=== PATIENT | female | born 1960 | race Caucasian/White ===

== ENCOUNTER 2020-06-16 10:45 | Emergency (ER) | payer OTHER, SELFPAY ==
[2020-06-16 10:57] VITALS: BP 133/73; PULSE 78; RESP 16; TEMP 36.2; O2SAT 97; BMI 22.3
--- NOTE | 2020-06-16 11:20 | XR_ITS ---
EXAMINATION: XR SHOULDER, LEFT CLINICAL INFORMATION: Atraumatic left shoulder pain. COMPARISON: None TECHNIQUE: AP external rotation, Grashey, scapular Y, and axillary views of the left shoulder. FINDINGS: The bones and soft tissues are normal. No fracture. Glenohumeral and acromioclavicular alignment is anatomic with normal joint space. No abnormal soft tissue calcifications. IMPRESSION: Unremarkable left shoulder exam.
--- NOTE | 2020-06-16 12:05 | ED_ITS ---
HPI - Extremity Problem General Chief complaint: Back Pain/Injury Stated complaint: PAIN - SHOULDER,BACK Time Seen by Provider: 06/16/20 11:10 Source: patient Mode of arrival: ambulatory Limitations: no limitations History of Present Illness HPI Narrative: 59-year-old female with a past medical history of rotator cuff injury to the right side, fibromyalgia, carpal tunnel syndrome and arthritis presenting to the ED with complaints of atraumatic left shoulder / scapula pain for the past few days worse today. Reports the pain is worse with raising of the arm or dropping of the arm. Denies any recent trauma or any other symptoms complaints or concerns at this time. Patient reports she is taking [id number] Tylenol and no symptomatic relief. Related Data Allergies Allergy/AdvReac Type Severity Reaction Status Date / Time aspirin [ASPIRIN] Allergy Unknown STOMACH Unverified 05/13/20 16:09 UPSET, irritation baclofen Allergy Unknown mouth ulcer Verified 04/09/19 00:00 naproxen Allergy Unknown mouth sores Verified 02/24/20 00:00 tramadol [TRAMADOL] Allergy Unknown DIZZY, Unverified 05/13/20 16:09 N&V, dizziness Review of Systems Review of Systems: Constitutional : No Fever Cardiovascular : No Chest Pain, No SOB, No Dyspnea on Exertion, No Orthopnea, No Edema, No Palpitations Respiratory : No Cough, No Sputum, No Wheezing, No Smoke Exposure, No Dyspnea Gastrointestinal : No Nausea, No Vomiting Musculoskeletal : No joint pain, No Myalgias, No Joint Swelling Skin : No Skin Lesions, No rash Neuro : No Weakness, No Numbness, No Paresthesias, No Dizziness, No Headache Heme/Lymph: No Lymphadenopathy Yes all other systems are reviewed and are negative [facility] Past Medical History Attestation statement: The following information was validated with the patient. Medical History Arthritis Carpal tunnel syndrome Fibromyalgia Rotator cuff injury Social History Social History Alcohol intake: never Smoking Status: Never smoker Use of substances other than those prescribed or required for medical reasons: No Advance Directives: Yes Advance Directives Information Provided: Yes Advance Directives on File: No Physical Exam Vital Signs: Vital Signs: Vital Signs Temp Pulse Resp BP Pulse Ox 10/21/20 10:57 97.1 F 78 16 133/73 97 Body Mass Index 22.3 vital signs have been reviewed as normal and appeared to be correct. Blood pressure normal. Heart rate normal. Respiration rate normal. Temperature normal. Oxygen saturation normal. Appearance: Alert. Oriented X3. No acute distress. Head: Normal external exam. Normocephalic. Atraumatic. No Carvalho signs noted. No raccoon eyes noted Eyes: PERRLA. EOMI. Conjunctiva and sclera normal. Eyelids normal. ENT: EAC normal. TM's Normal. Pharynx normal. Uvula midline. Moist mucous membranes. No trismus noted. No drooling noted. No muffled voice noted. Neck: Normal inspection. Neck supple. FROM. No adenopathy. Thyroid Normal. No meningeal signs. No neck mass noted. CVS: Normal heart rate and rhythm. Heart sound normal. No murmurs noted. Pulses normal throughout. Respiratory: No respiratory distress. Painless inspiration. Breath sounds normal. No wheezes/rales/rhonchi noted. Chest nontender. No accessory muscle usage noted or decreased air movement noted. Abdomen: Soft and nontender. Bowel sounds normal in all 4 quadrants. No distention noted. No organomegaly noted. No visible injury noted. Back: No CVA tenderness. Full range of motion noted. Skin: Skin warm and dry. Normal skin color. Normal skin turgor. No rashes/lesions/lacerations noted. Extremities: Patient tender to palpation of left AC joint and scapula. No obvious deformities. No rashes/lesion / induration/ fluctuance or signs of infection noted. Patient has a full range of motion. No lower extremity edema. All other Extremities exhibit normal range of motion and nontender. Neuro: Oriented X 3. No motor deficit. No sensory deficit. Reflexes normal. Course Course Course Narrative: 11:20AM 59-year-old female with a past medical history of rotator cuff injury to the right side, fibromyalgia, carpal tunnel syndrome and arthritis presenting to the ED with complaints of atraumatic left shoulder / scapula pain for the past few days worse today. Reports the pain is worse with raising of the arm or dropping of the arm. Denies any recent trauma or any other symptoms complaints or concerns at this time. - Plan: Xray Reevaluation(s) Reevaluation #1: X-ray within normal limits no acute processes noted. Will DC home with symptomatic treatment along with instructions to follow-up with primary care provider /big data engineer and to return if any new or worsening symptoms. Patient understands agrees with this plan. MDM - Extremity (Nontraumatic) Imaging Data left shoulder xray: Attestation: I personally reviewed and interpreted this imaging study as follows: Radiologist's impression: FINDINGS: The bones and soft tissues are normal. No fracture. Glenohumeral and acromioclavicular alignment is anatomic with normal joint space. No abnormal soft tissue calcifications. IMPRESSION: Unremarkable left shoulder exam.
== END 2020-06-16 12:25 | disposition home or self-care (01) ==
PROVIDERS: Emergency Provider Emergency Medicine; PCP Internal Medicine
DX: S46.912A Strain of unspecified muscle, fascia and tendon at shoulder and upper arm level, left arm, initial encounter (principal); X58.XXXA Exposure to other specified factors, initial encounter; M89.49 Other hypertrophic osteoarthropathy, multiple sites; Y93.9 Activity, unspecified; Y92.9 Unspecified place or not applicable; Y99.9 Unspecified external cause status
CPT/HCPCS: 73030; 99283

== ENCOUNTER → 2020-06-22 12:19 | Outpatient (BNVA) | payer OTHER, SELFPAY | PROVIDERS: PCP Internal Medicine; Visit Provider Student in an Organized Health Care Education/Training Program | DX: M67.912 Unspecified disorder of synovium and tendon, left shoulder (principal) | CPT/HCPCS: 20610; 99213 ==

== ENCOUNTER → 2020-08-24 14:25 | Outpatient (BNVA) | payer OTHER, SELFPAY | PROVIDERS: PCP Internal Medicine; Referring Provider Internal Medicine; Visit Provider Student in an Organized Health Care Education/Training Program | DX: Z13.89 Encounter for screening for other disorder (principal) | CPT/HCPCS: Q3014 ==

== ENCOUNTER 2020-10-27 09:16 | Outpatient (REF) | payer OTHER, SELFPAY ==
[2020-10-27 09:45] LABS: MANUAL DIFF FLAG NO
[2020-10-27 09:47] LABS: Basophils Percent Auto 0.6 % (0-2); Eosinophils Absolute Auto 0.2 X10*3/uL (0.0-0.4); Eosinophils Percent Auto 2.9 % (0-4); Hemoglobin 13.2 g/dl (12.0-16.0); Imm Gran Abs Auto 0.01 X10*3/uL (0.00-0.03); Imm Gran Pct Auto 0.1 % (0.0-0.4); Lymphocytes Absolute Auto 3.2 X10*3/uL (1.2-4.9); Lymphocytes Percent Auto 44.5 % (20-40); Mean Corpuscular HGB Conc 33.8 g/dl (31.0-35.0); Mean Corpuscular Volume 91.5 fL (80-98); Mean Platelet Volume 10.6 fL (9.4-12.3); Monocytes Absolute Auto 0.6 X10*3/uL (0.1-1.2); Monocytes Percent Auto 7.9 % (2-11); Neutrophils Absolute Auto 3.2 X10*3/uL (2.0-8.3); Platelet Count 294 X10*3/uL (160-400); Red Blood Count 4.26 X10*6/uL (4.20-5.50); Red Cell Distribution Width 12.5 % (11.0-16.0); White Blood Count 7.2 X10*3/uL (4.8-10.8)
[2020-10-27 10:55] LABS: Anion Gap 10 (12-20); Blood Urea Nitrogen 18 mg/dL (9-16); Calcium 9.5 mg/dL (8.4-10.2); Carbon Dioxide 28 mmol/L (22-29); Chloride 105 mmol/L (96-108); Cholesterol 212 mg/dL; Estimated Glomerular Filt Rate > 60; Glucose Fasting 96 mg/dL (60-99); HDL Cholesterol 59 mg/dL; LDL Cholesterol Calculated 125 mg/dl; Potassium 4.3 mmol/L (3.3-5.1); Sodium 139 mmol/L (135-145); Triglycerides 144 mg/dL
== END 2020-10-27 09:17 | disposition home or self-care (01) ==
LOC: HO.LAB 09:16
PROVIDERS: Absent Provider Internal Medicine; PCP Internal Medicine; Visit Provider Nurse Practitioner Family
DX: M25.50 Pain in unspecified joint (principal)
CPT/HCPCS: 36415; 80048; 80061; 85025

== ENCOUNTER 2021-01-13 10:17 | Outpatient (REF) | payer OTHER, SELFPAY ==
--- NOTE | 2021-01-13 10:19 | EMG_ITS ---
Bilateral median and ulnar motor and sensory studies were performed. Bilateral radial sensory studies were performed and paraspinal muscles were tested with a needle. IMPRESSION: 1. Lnlm-jy-pbhrnzsf right median neuropathy across carpal tunnel, the left one was within normal range. 2. Mild left ulnar neuropathy across cubital tunnel, the right one was within normal range. MD SERA Ochoa/BRANDYN / [phone]
== END 2021-01-13 10:18 | disposition home or self-care (01) ==
LOC: HO.NEURO 10:17
PROVIDERS: PCP Internal Medicine; Visit Provider Internal Medicine
DX: G56.03 Carpal tunnel syndrome, bilateral upper limbs (principal)
CPT/HCPCS: 95886; 95911

== ENCOUNTER 2021-03-18 13:59 | Outpatient (REF) | payer OTHER, SELFPAY ==
--- NOTE | ~2021-03-18 | MM_ITS ---
EXAMINATION: BONE DENSITOMETRY CLINICAL INDICATION: Other specified disorders of bone density and structure. COMPARISON: Previous BD dated 07/13/2017 and baseline BD dated 12/27/2009. TECHNIQUE: Using a Flexuspine DXA System (software version: 13.1) manufactured by [employer], dual-energy x-ray absorptiometry was performed of the lumbar spine and left hip. The images are of good technical quality. Summary results are attached. FINDINGS: AP SPINE L1-L4: Current: BMD 1.107 g/cm2, Z-score 0.7, T-score -0.6, normal, 4.1% decrease from previous, 9.4% decrease from baseline (<5% change is not significant). Prior: BMD 1.154 g/cm2. Baseline: BMD 1.222 g/cm2. LEFT FEMUR, NECK: Current: BMD 0.877 g/cm2, Z-score 0.2, T-score -1.2, osteopenia. Prior: BMD 0.873 g/cm2. Baseline: BMD 0.989 g/cm2. LEFT FEMUR, TOTAL: Current: BMD 0.955 g/cm2, Z-score 0.6, T-score -0.4, normal, 3.7% decrease from previous, 7.8% decrease from baseline (<5% change is not significant). Prior: BMD 0.992 g/cm2. Baseline: BMD 1.036 g/cm2. IDENTIFIED RISK FACTORS: Early menopause. Secondary osteoporosis. HISTORY OF FRACTURE: None listed. MEDICATIONS: Calcium. MM/XR DEXA axial skeleton IMPRESSION: 1. DIAGNOSIS: Osteopenia based on the lowest T-score value of -1.2 in the femoral neck applying World Health Organization criteria. 2. 10-YEAR FRACTURE RISK PREDICTION, FRAX: Major osteoporotic fracture (clinical spine, forearm, hip or shoulder) 3.8%. Hip fracture 0.2%. 3. Treatment Recommendations: NOF guidelines recommend consideration for treatment in postmenopausal women and men age 50 and older presenting with the following: -A hip or vertebral (clinical or morphometric) fracture. -T-score less than or equal to -2.5 at the femoral neck or spine after appropriate evaluation to exclude secondary causes. -Low bone mass at the hip or spine and a 10-year fracture probability by FRAX of greater than or equal to 3% for hip fracture or greater than or equal to 20% for major osteoporotic fracture based on the [place] adapted WHO algorithm. 4. Other Recommendations: All treatment decisions require clinical judgment and consideration of individual patient factors, including patient preferences, comorbidities, previous drug use, risk factors not captured in the FRAX model (e.g. frailty, falls, vitamin D deficiency, increased bone turnover, interval significant decline in bone density) and possible under or overestimation of fracture risk by FRAX. Additional medical evaluation for secondary cause of low bone mineral density may be appropriate. FUTURE SCAN RECOMMENDATION: People with diagnosed cases of osteoporosis or at high risk for fracture should have regular bone mineral density tests. For patients eligible for Medicare, routine testing is allowed once every 2 years. The testing frequency can be increased to one year for patients who have rapidly progressing disease, those who are receiving or discontinuing medical therapy to restore bone mass, or have additional risk factors.
--- NOTE | ~2021-03-18 | MM_ITS ---
EXAMINATION: MM SCREENING DIGITAL BREAST TOMOSYNTHESIS, BILATERAL CLINICAL INFORMATION: Screening. Asymptomatic. The lifetime risk of breast cancer based on the Tyrer-Cuzick Model is 6%. COMPARISON: Mammography: 07/16/2019, 04/24/2018, 01/19/2017 TECHNIQUE: Digital breast tomosynthesis is performed in both the craniocaudal and mediolateral oblique views along with computer-aided detection (CAD). Synthesized 2D images are generated from the tomosynthesis. FINDINGS: The breasts are heterogeneously dense, which may obscure small masses (ACR BI-RADS breast composition Category c). There are no significant masses, abnormal calcifications, or other abnormalities. Parenchymal pattern is similar to prior studies. No developing density there are dermal calcifications versus deodorant artifact overlying skin right axilla. MM/MM tomosynthesis screening BI IMPRESSION: No mammographic evidence of malignancy. ASSESSMENT: BI-RADS 2: Benign RECOMMENDATION: Routine annual mammography screening. This patient's information was entered into a reminder system with a target due date for their next mammogram.
== END 2021-03-18 14:00 | disposition home or self-care (01) ==
LOC: HO.MAMMO 13:59
PROVIDERS: PCP Internal Medicine; Visit Provider Internal Medicine
DX: Z12.31 Encounter for screening mammogram for malignant neoplasm of breast (principal); Z13.820 Encounter for screening for osteoporosis; M85.80 Other specified disorders of bone density and structure, unspecified site; R35.0 Frequency of micturition
CPT/HCPCS: 77063; 77067; 77080

== ENCOUNTER → 2021-08-16 13:23 | Outpatient (BNVA) | payer OTHER, SELFPAY | PROVIDERS: PCP Internal Medicine; Visit Provider Nurse Practitioner Family | DX: M25.50 Pain in unspecified joint (principal); G56.01 Carpal tunnel syndrome, right upper limb | CPT/HCPCS: 99212 ==

== ENCOUNTER 2021-11-28 09:35 | Outpatient (REF) | payer OTHER, SELFPAY ==
[2021-11-28 09:56] LABS: MANUAL DIFF FLAG NO
[2021-11-28 10:38] LABS: Basophils Percent Auto 0.6 % (0-2); Eosinophils Absolute Auto 0.2 X10*3/uL (0.0-0.4); Eosinophils Percent Auto 2.7 % (0-4); Hematocrit 39.5 % (37.0-47.0); Hemoglobin 13.3 g/dl (12.0-16.0); Imm Gran Abs Auto 0.01 X10*3/uL (0.00-0.03); Imm Gran Pct Auto 0.2 % (0.0-0.4); Lymphocytes Absolute Auto 2.8 X10*3/uL (1.2-4.9); Lymphocytes Percent Auto 42.9 % (20-40); Mean Corpuscular HGB Conc 33.7 g/dl (31.0-35.0); Mean Corpuscular Hemoglobin 30.9 pg (27.0-33.0); Mean Corpuscular Volume 91.6 fL (80.0-98.0); Monocytes Absolute Auto 0.5 X10*3/uL (0.1-1.2); Monocytes Percent Auto 7.5 % (2-11); Neutrophils Percent Auto 46.1 % (45-73); Platelet Count 293 X10*3/uL (160-400); Red Blood Count 4.31 X10*6/uL (4.20-5.50); Red Cell Distribution Width 12.5 % (11.0-16.0); White Blood Count 6.6 X10*3/uL (4.8-10.8)
[2021-11-28 10:49] LABS: Estimated Average Glucose 120 mg/dL; Hemoglobin A1c % 5.8 %
[2021-11-28 11:19] LABS: Alanine Aminotransferase 21 U/L (0-31); Albumin Level 4.2 g/dL (3.5-5.0); Alkaline Phosphatase 34 U/L (39-117); Anion Gap 11 (12-20); Aspartate Amino Transferase 24 U/L (5-31); Bilirubin Total 0.7 mg/dL (0.0-1.0); Blood Urea Nitrogen 16 mg/dL (9-16); Calcium 9.9 mg/dL (8.4-10.2); Carbon Dioxide 27 mmol/L (22-29); Chloride 106 mmol/L (96-108); Cholesterol 206 mg/dL; Estimated Glomerular Filt Rate > 60; Glucose Random 109 mg/dL (60-115); HDL Cholesterol 57 mg/dL; LDL Cholesterol Calculated 118 mg/dl; Potassium 4.4 mmol/L (3.3-5.1); Sodium 140 mmol/L (135-145); Total Protein 7.9 g/dL (6.5-8.0); Triglycerides 155 mg/dL
[2021-11-28 11:27] LABS: Thyroid Stimulating Hormone 2.34 uIU/mL (0.32-4.0); Vitamin D 25-OH Total 33.5 ng/mL (>30)
[2021-11-28 12:39] LABS: Folate > 20.0 ng/mL (> or = 4.0); Vitamin B12 635 pg/mL (200-900)
== END 2021-11-28 09:36 | disposition home or self-care (01) ==
LOC: HO.LAB 09:35
PROVIDERS: PCP Internal Medicine; Visit Provider Internal Medicine
DX: E78.00 Pure hypercholesterolemia, unspecified (principal); R73.02 Impaired glucose tolerance (oral)
CPT/HCPCS: 36415; 80053; 80061; 82306; 82607; 82746; 83036; 84439; 84443; 85025

== ENCOUNTER → 2022-03-23 14:13 | Outpatient (BNVA) | payer OTHER, SELFPAY | PROVIDERS: PCP Internal Medicine | DX: R35.0 Frequency of micturition (principal) | CPT/HCPCS: 51798; 99202 ==

== ENCOUNTER → 2022-08-03 10:49 | Outpatient (BNVA) | payer OTHER, SELFPAY | PROVIDERS: PCP Internal Medicine; Visit Provider Urology | DX: N32.81 Overactive bladder (principal) | CPT/HCPCS: Q3014 ==

== ENCOUNTER → 2022-09-27 14:09 | Outpatient (BNVA) | payer OTHER, SELFPAY | PROVIDERS: PCP Internal Medicine; Visit Provider Nurse Practitioner Family | DX: G56.01 Carpal tunnel syndrome, right upper limb (principal); M79.7 Fibromyalgia | CPT/HCPCS: 99212 ==

== ENCOUNTER 2022-10-03 13:38 | Outpatient (REF) | payer OTHER, SELFPAY ==
--- NOTE | ~2022-10-03 | XR_ITS ---
EXAMINATION: XR SHOULDER, RIGHT CLINICAL INFORMATION: Right shoulder pain COMPARISON: MRI 08/01/2016 TECHNIQUE: AP external rotation, Grashey, scapular Y, and axillary views of the right shoulder. FINDINGS: Small degenerative cysts of the superolateral humeral head. No joint space narrowing. No fracture or malalignment. XR/XR shoulder RT min 2V IMPRESSION: Mild glenohumeral osteoarthritis. No acute osseous abnormality.
[2022-10-03 15:31] LABS: Anion Gap 16 (12-20); Bilirubin Total 0.8 mg/dL (0.0-1.0); Blood Urea Nitrogen 18 mg/dL (9-16); Calcium 9.9 mg/dL (8.4-10.2); Carbon Dioxide 26 mmol/L (22-29); Chloride 104 mmol/L (96-108); Estimated Glomerular Filt Rate > 60; Glucose Random 116 mg/dL (60-115); Potassium 4.5 mmol/L (3.3-5.1); Sodium 141 mmol/L (135-145)
[2022-10-03 15:32] LABS: Alanine Aminotransferase 14 U/L (0-31); Albumin Level 4.2 g/dL (3.5-5.0); Alkaline Phosphatase 36 U/L (39-117); Aspartate Amino Transferase 21 U/L (5-31); Total Protein 7.4 g/dL (6.5-8.0)
== END 2022-10-03 13:39 | disposition home or self-care (01) ==
LOC: HO.XRAY 13:38
PROVIDERS: PCP Internal Medicine; Visit Provider Nurse Practitioner Family
DX: M25.511 Pain in right shoulder (principal); M79.7 Fibromyalgia
CPT/HCPCS: 36415; 73030; 80053

== ENCOUNTER → 2022-10-04 11:09 | Outpatient (BNVA) | payer OTHER, SELFPAY | PROVIDERS: PCP Internal Medicine; Visit Provider Nurse Practitioner Family | DX: R39.15 Urgency of urination (principal); R35.0 Frequency of micturition; N32.81 Overactive bladder | CPT/HCPCS: Q3014 ==

== ENCOUNTER → 2022-10-26 11:21 | Outpatient (BNVA) | payer OTHER, SELFPAY | PROVIDERS: PCP Internal Medicine; Visit Provider Nurse Practitioner Family | DX: M19.011 Primary osteoarthritis, right shoulder (principal) | CPT/HCPCS: 20610 ==

== ENCOUNTER 2023-02-20 09:24 | Emergency (ER) | payer OTHER, SELFPAY ==
--- NOTE | ~2023-02-20 | XR_ITS ---
EXAMINATION: XR LUMBOSACRAL SPINE CLINICAL INFORMATION: Pain COMPARISON: None available. TECHNIQUE: Three views of the lumbosacral spine. FINDINGS: The normal lordosis is maintained. Mild scoliosis convex right apex at L4. The SI joints are grossly patent. There is no listhesis or compression injury. The vertebral body heights and disc heights are fairly well-preserved here. Cannot rule out some early degeneration in the inferior L5-S1 posterior elements. XR/XR lumbar spine 2-3V IMPRESSION: No acute finding. Scoliosis and some possible mild early degenerative changes in the posterior elements lower lumbar region
[2023-02-20 09:33] VITALS: BP 105/76; PULSE 77; RESP 17; TEMP 36.1; O2SAT 99; BMI 19.5
--- NOTE | 2023-02-20 10:21 | ED_ITS ---
HPI - General Adult General Chief complaint: General Medical Stated complaint: R Side and Back Pain No Injury Time Seen by Provider: 02/20/23 09:46 Source: patient and RN notes reviewed Mode of arrival: ambulatory Limitations: no limitations History of Present Illness HPI narrative: This is a 62-year-old female, with a past medical history of fibromyalgia and carpal tunnel syndrome, presenting to the emergency department for evaluation of acute on chronic right shoulder pain and back pain. Patient reports that she developed left midback pain several weeks ago. She reports that about a week ago she developed worsening right shoulder pain. She denies any recent trauma, injury, or falls. She is not working right now but does a lot of housework every day. She denies remembering specific movement where she developed these symptoms. She has been taking Tylenol for her symptoms which has provided her without any relief. Denies any fevers, chills, chest pain, shortness of breath, palpitations, abdominal pain, nausea, vomiting, or diarrhea. Denies any urinary symptoms. No other complaints or concerns at this time. MD complaint: Right shoulder pain, back pain Onset (ago): week(s) Location: upper extremity Radiation: non-radiation Severity: moderate Quality: aching Pain Consistency: constant Relieving factors: immobilization Exacerbating factors: movement Associated symptoms: denies other symptoms Treatments prior to arrival: none Related Data Home Medications Medication Instructions Recorded Confirmed multivitamin 1 tab PO DAILY 06/21/20 10/23/22 Previous Rx's Medication Instructions Recorded fluticasone propionate 50 1 spray intranasal DAILY #48 mL 11/16/21 mcg/actuation nasal spray,suspension propranolol 10 mg tablet 10 mg PO BID #180 tabs 09/06/22 cyclobenzaprine 10 mg tablet 10 mg PO TID PRN muscle spasm #20 09/22/22 tabs amitriptyline 10 mg tablet 10 mg PO BEDTIME #90 tabs 09/27/22 gabapentin 400 mg capsule 400 mg PO BID #180 caps 09/27/22 tolterodine 4 mg capsule,extended 4 mg PO DAILY 90 days #90 caps 10/04/22 release 24 hr mometasone 0.1 % topical cream 1 appl topical DAILY 2 weeks #45 10/23/22 grams lqvrovbc-vcekukhnn-wdjalojcz 3.5 4 drp otic (ear) right TID 5 days 10/23/22 mg/mL-10,000 unit/mL-1 % ear #10 mL solution psyllium husk 0.4 gram capsule 0.4 g PO DAILY PRN constipation 10/23/22 (Metamucil) #30 caps sennosides 8.6 mg-docusate sodium 2 tab-cap PO BEDTIME #60 caps 10/23/22 50 mg capsule (Senna Plus) calcium carbonate 600 mg-vitamin 1 tab PO DAILY #90 tabs 10/27/22 D3 5 mcg (200 unit) tablet (Calcium 600 + D(3)) acetaminophen 325 mg capsule 650 mg PO Q6H PRN pain #30 caps 02/20/23 (Tylenol) ibuprofen 600 mg tablet 600 mg PO Q6H PRN pain #30 tabs 02/20/23 Allergies Allergy/AdvReac Type Severity Reaction Status Date / Time aspirin [ASPIRIN] Allergy Unknown STOMACH Verified 02/20/23 09:32 UPSET, irritation baclofen Allergy Unknown mouth ulcer Verified 02/20/23 09:32 naproxen Allergy Unknown mouth sores Verified 02/20/23 09:32 tramadol [TRAMADOL] Allergy Unknown DIZZY, Verified 02/20/23 09:32 N&V, dizziness sumatriptan [From Imitrex] AdvReac Intermediate Chest Pain Verified 02/20/23 09:32 Review of Systems Review of Systems: Constitutional: No Weight loss, No Fever, No Chills ENT/Mouth: No Ear Pain, No Nasal Congestion, No Sinus Pain, No Hoarseness, No sore throat, No Rhinorrhea, No Swallowing Difficulty Cardiovascular: No Chest Pain, No SOB Respiratory: No Cough, No Sputum, No Wheezing Gastrointestinal: No Nausea, No Vomiting, No Diarrhea, No Constipation, No Abdominal pain Genitourinary: No Dysuria, + Urinary Frequency, No Hematuria, No Urinary Incontinence/retention, No Urgency, No Flank Pain Musculoskeletal:+ joint pain, No Myalgias, No Joint Swelling Skin: No Skin Lesions, No rash Neuro: No Weakness, No Numbness, No Paresthesias Yes all other systems are reviewed and are negative Constitutional: Constitutional: Reports as per [facility] Past Medical History Attestation statement: The following information was validated with the patient. Medical History Carpal tunnel syndrome FARHAD II (cervical intraepithelial neoplasia II) Fibromyalgia HPV test positive Hypercholesterolemia Impaired glucose tolerance Left shoulder pain Migraine Osteopenia Rotator cuff injury Thyroid nodule Urinary frequency Urinary urgency Vitamin D deficiency Surgical History H/O LEEP Family History Family History Father CVD (cardiovascular disease) Mother Diabetes Hypertension Social History Social History Housing: House Alcohol intake: never Patient Tobacco Use Status: Never used Tobacco e-Cigarette/Vaping Use: Never Used Second Hand Smoke Exposure: No Advance Directives: No service: No Current occupational status: unemployed Cognitive needs: No Hearing needs: No Vision needs: Yes Physical Exam ED Vital Signs: Vital Signs - 24 hr 02/20/23 09:33 Temperature 97 F Pulse Rate 77 Respiratory Rate 17 Blood Pressure 105/76 Pulse Oximetry 99 Oxygen Delivery Method Room Air BMI result Body Mass Index 19.5 Const General: cooperative, comfortable and no acute distress Orientation/consciousness: patient oriented x3 Limitations: no limitations HENMT Head: Yes normal to inspection, Yes normocephalic and Yes atraumatic Ears: hearing grossly normal bilaterally General nose exam: Normal external nose present Face and sinus: Yes normal facial exam Mouth: Normal oral and palatal mucosa present, oropharynx normal and moist mucous membranes Throat: Yes posterior oropharynx normal Eyes General: appearance normal, both eyes and all related structures Eyelids: Yes eyelids normal Conjunctivae: conjunctivae normal Sclerae: sclerae normal Pupils: Equal, round and reactive pupils present EOM: EOMs intact bilaterally Neck Neck: Yes normal visual inspection, Yes full ROM and Yes no lymphadenopathy Lymphatic: no lymphadenopathy noted Chest Chest palpation & inspection: normal inspection of the chest Resp Effort & Inspection: normal respiratory effort and able to speak in complete sentences Auscultation: clear to auscultation bilaterally, no crackles, no rales, no rhonchi and no wheezes Cardio Rate: regular rate Rhythm: regular rhythm Heart sounds: S1 normal heart sound present and S2 normal heart sound present GI Inspection: Yes normal to inspection Palpation (GI): Soft to palpation, nontender and no guarding General: Yes no CVA tenderness Back/Spine/Pelvis Other: Tenderness to palpation along the left paraspinous muscles, no midline spine tenderness. Back: no CVA tenderness Thoracic/Lumbar Spine: thoracic and lumbar spine normal to inspection Skin General skin exam: no rashes or lesions noted Trauma: no lacerations or abrasions Wounds: no wounds Neuro General: patient oriented x3 and moves all extremities Cranial nerves: Yes Equal, round and reactive pupils present Extrem Other: Right shoulder with out any bony abnormalities, step-off or deformities. Right shoulder is tender diffusely throughout the entire joint without any specific point tenderness. Tenderness to palpation along the right trapezius. Forward flexion to about 70?, abduction to about 60?, unable to perform lift-off test secondary to pain, positive empty can test. General: Yes normal to inspection Right upper extremity: normal to inspection Left upper extremity: normal to inspection Right lower extremity: normal to inspection Left lower extremity: normal to inspection Course Reevaluation(s) Reevaluation #1: X-rays return showing scoliosis and mild degenerative changes lumbar spine. Will discharge patient on ibuprofen Tylenol. States some relief after receiving Toradol injection. Educated patient on return precautions, patient understands agrees with plan. Patient eager for discharge. Time: 13:03 Medications Administered Discontinued Medications Generic Name Dose Route Start Last Admin Trade Name Freq PRN Reason Stop Dose Admin Ketorolac Tromethamine 30 mg 02/20/23 10:19 02/20/23 11:13 Ketorolac Tromethamine 30 Mg/Ml Vial IM 02/20/23 10:20 30 mg ONCE ONE Administration Medical Decision Making Medical Decision Making [facility] Narrative: 62-year-old female presenting to the emergency department for evaluation of right shoulder pain and back pain. Patient was seen in September where she obtained a right shoulder x-ray which showed osteoarthritis. She has also been seen by Rheumatology where she had a cortisone injection, patient has no new trauma or injury to her right shoulder given the circumstances I do not think it is necessary to re-x-ray the right shoulder. Patient has no midline spine tenderness, has left paraspinous muscle tenderness, will obtain x-rays per patient's request although explained to her that this is all musculoskeletal. Patient has no red flag back symptoms. No urinary symptoms. No weakness, numbness, tingling. No urinary or bowel incontinence. No fevers or chills. Vital signs within normal limits. Differential Diagnosis Differential Diagnoses: The differential diagnosis associated with the presentation includes Right shoulder osteoarthritis, dislocation-less likely, septic joint-less likely, fracture, sciatica, lumbar strain, lumbar spasm, disc herniation, cauda equina syndrome-unlikely Radiology Impression Discussion of test interpretation with radiology: I have reviewed the radiologist's reading. Radiologist Impression: EXAMINATION: XR LUMBOSACRAL SPINE CLINICAL INFORMATION: Pain COMPARISON: None available. TECHNIQUE: Three views of the lumbosacral spine. FINDINGS: The normal lordosis is maintained. Mild scoliosis convex right apex at L4. The SI joints are grossly patent. There is no listhesis or compression injury. The vertebral body heights and disc heights are fairly well-preserved here. Cannot rule out some early degeneration in the inferior L5-S1 posterior elements. XR/XR lumbar spine 2-3V IMPRESSION: No acute finding. Scoliosis and some possible mild early degenerative changes in the posterior elements lower lumbar region Dictated By: Cj Nuno MD External Record Review External record reviewed: Inpatient record, Office record, Outpatient record, Prior outpatient labs, Prior outpatient radiology, Primary care record and Outside ED record Review of previous ER visits and rheumatology visits Discharge Plan Discharge Clinical Impression: Chronic shoulder pain, Back pain Patient Disposition: Home, Self-Care Instructions: Back Pain (ED), Shoulder Pain (ED) Additional Instructions: Your x-ray of your back reveals scoliosis, and mild early degenerative changes. You received Toradol injection for pain, which is similar to ibuprofen. Do not take ibuprofen today, but you may take Tylenol as needed for pain. Take medications as prescribed. Follow-up with your primary care physician regarding this visit, as they may want to refer you to physical therapy. I am also referring you to orthopedics for your shoulder pain, call today to make an appointment. If any new or worsening symptoms occur please return for re-evaluation. Prescriptions: New ibuprofen 600 mg tablet 600 mg PO Q6H PRN (Reason: pain) Qty: 30 0RF acetaminophen [Tylenol] 325 mg capsule 650 mg PO Q6H PRN (Reason: pain) Qty: 30 0RF No Action fluticasone propionate 50 mcg/actuation spray,suspension 1 spray intranasal DAILY Qty: 48 5RF propranolol 10 mg tablet 10 mg PO BID Qty: 180 2RF cyclobenzaprine 10 mg tablet 10 mg PO TID PRN (Reason: muscle spasm) Qty: 20 5RF calcium carbonate-vitamin D3 [Calcium 600 + D(3)] 600 mg-5 mcg (200 unit) tablet 1 tab PO DAILY Qty: 90 3RF multivitamin Tablet 1 tab PO DAILY Senna Plus 8.6-50 mg capsule 2 tab-cap PO BEDTIME Qty: 60 4RF psyllium husk [Metamucil] 0.4 gram capsule 0.4 g PO DAILY PRN (Reason: constipation) Qty: 30 2RF cnukjknt-lictzxojg-IF 3.5-10,000-1 mg/mL-unit/mL-% solution 4 drp otic (ear) right TID 5 Days Qty: 10 0RF mometasone 0.1 % cream 1 appl topical DAILY 14 Days Qty: 45 0RF amitriptyline 10 mg tablet 10 mg PO BEDTIME Qty: 90 1RF gabapentin 400 mg capsule 400 mg PO BID Qty: 180 0RF tolterodine 4 mg capsule,extended release 24hr 4 mg PO DAILY 90 Days Qty: 90 1RF Referrals: [facility] Orth[facility] Surgeons [Provider Group] Interventions: ED Discharge Assessment Last Done: 02/20/23 13:01 Discharge Date/Time: 02/20/23 13:02
[2023-02-20] MEDS: Ketorolac Tromethamine 30 MG/ML VIAL IM (11:13)
== END 2023-02-20 13:02 | disposition home or self-care (01) ==
PROVIDERS: Emergency Provider Emergency Medicine; PCP Internal Medicine
DX: M25.511 Pain in right shoulder (principal); M54.50 Low back pain, unspecified; Z79.899 Other long term (current) drug therapy
CPT/HCPCS: 72100; 96372; 99283; 99284; J1885

== ENCOUNTER 2023-03-05 10:05 | Outpatient (REF) | payer OTHER, SELFPAY ==
[2023-03-05 12:13] LABS: Alanine Aminotransferase 14 U/L (0-31); Albumin Level 4.1 g/dL (3.5-5.0); Alkaline Phosphatase 31 U/L (39-117); Anion Gap 14 (12-20); Aspartate Amino Transferase 21 U/L (5-31); Bilirubin Total 0.9 mg/dL (0.0-1.0); Blood Urea Nitrogen 21 mg/dL (9-16); Carbon Dioxide 25 mmol/L (22-29); Chloride 107 mmol/L (96-108); Cholesterol 217 mg/dL; Estimated Glomerular Filt Rate > 60; Free T4 (Free Thyroxine) 1.05 ng/dL (0.71-1.85); Glucose Random 86 mg/dL (60-115); HDL Cholesterol 61 mg/dL; LDL Cholesterol Calculated 137 mg/dl; Potassium 4.3 mmol/L (3.3-5.1); Sodium 142 mmol/L (135-145); Thyroid Stimulating Hormone 1.81 uIU/mL (0.32-4.0); Total Protein 7.8 g/dL (6.5-8.0); Triglycerides 96 mg/dL; Vitamin D 25-OH Total 40.6 ng/mL (>30)
== END 2023-03-05 10:06 | disposition home or self-care (01) ==
LOC: HO.LAB 10:05
PROVIDERS: PCP Internal Medicine; Visit Provider Internal Medicine
DX: E78.00 Pure hypercholesterolemia, unspecified (principal); R73.02 Impaired glucose tolerance (oral); M85.80 Other specified disorders of bone density and structure, unspecified site; E55.9 Vitamin D deficiency, unspecified
CPT/HCPCS: 36415; 80053; 80061; 82306; 82607; 82746; 83036; 84439; 84443; 85025

== ENCOUNTER 2023-03-09 13:56 | Outpatient (AMB) | payer OTHER, SELFPAY ==
[2023-03-09 13:58] VITALS: BP 112/72; PULSE 57; O2SAT 98; BMI 19.3
--- NOTE | 2023-03-09 13:58 | MHC.PC.OV ---
Vital Signs 03/09/23 13:58 Height 5 ft 5 in Weight 116 lb BMI 19.3 BP 112/72 Blood Pressure Location Lt brachial Position Sitting Pulse 57 Pulse Source Pulse Oximeter Pulse Oximetry (%) 98 Oxygen Delivery Method Room Air Intake Visit Reasons: [facility] [place] 02/20/23 Right Arm Pain Allergies aspirin [ASPIRIN] Allergy (Unknown, Verified 03/09/23 13:58) STOMACH UPSET, irritation baclofen Allergy (Unknown, Verified 03/09/23 13:58) mouth ulcer naproxen Allergy (Unknown, Verified 03/09/23 13:58) mouth sores tramadol [TRAMADOL] Allergy (Unknown, Verified 03/09/23 13:58) DIZZY, N&V, dizziness sumatriptan [From Imitrex] Adverse Reaction (Intermediate, Verified 03/09/23 13:58) Chest Pain Tobacco use date assessed: 10/23/22 Dental Screening Dental Screen Date: 03/09/23 Did you have a dental visit in the last 12 months?: Yes Did you have a dental problem in the last 6 months where you did not have access to dental care?: No Was dental information given to patient?: Patient has dentist HPI [facility] [place] 02/20/23 Right Arm Pain HPI Details 62-year-old female with impaired glucose tolerance, hypercholesterolemia overactive bladder constipation fibromyalgia last seen in September 2022. GI series requested blood work requested and with hoarseness of voice referred to Ear Nose and Throat. Patient comes in for follow-up. Colonoscopy still up-to-date due for mammogram. Review of the notes ER visit in February 20 for back pain and workup was negative patient has also seen the Rheumatology for the right shoulder and injection was done October 2022. With the hoarseness - refered to ENT but she cancelled this but wants it to be reinstated. does not eat vegetables patient is complaining of the shoulder pain on the right now has some pain on the left so also and had some numbness in the fingers patient does have a history of carpal tunnel tested in 2019 but that was early and ask if would want to do a test this time patient declined. [facility] Medical History (Updated 03/09/23 @ 14:20 by Asiya Wyman MD) Carpal tunnel syndrome FARHAD II (cervical intraepithelial neoplasia II) Fibromyalgia HPV test positive Hypercholesterolemia Impaired glucose tolerance Left shoulder pain Migraine Osteopenia Rotator cuff injury Thyroid nodule Urinary frequency Urinary urgency Vitamin D deficiency Surgical History H/O LEEP Family History (Updated 03/09/23 @ 13:59 by Rosa Klein WHEAT BUYER) Father CVD (cardiovascular disease) Mother Diabetes Hypertension Social History Housing: House Alcohol intake: never Patient Tobacco Use Status: Never used Tobacco e-Cigarette/Vaping Use: Never Used Second Hand Smoke Exposure: No service: No Current occupational status: unemployed Cognitive needs: No Hearing needs: No Vision needs: Yes Questionnaire PHQ-9 Over the last 2 weeks, how often have you been bothered by any of the following problems? 1. Little interest or pleasure in doing things: not at all 2. Feeling down, depressed, or hopeless: not at all 3. Trouble falling or staying asleep, or sleeping too much: not at all 4. Feeling tired or having little energy: not at all 5. Poor appetite or overeating: not at all 6. Feeling bad about yourself - or that you are a failure or have let yourself or your family down: not at all 7. Trouble concentrating on things, such as reading the newspaper or watching television: not at all 8. Moving or speaking so slowly that other people could have noticed. Or the opposite - being so fidgety or restless that you have been moving around a lot more than usual: not at all 9. Thoughts that you would be better off or of hurting yourself in some way: not at all Total score: 0 Depression Screening Interpretation: Negative Source: Developed by Drs. Gallito Day, Raquel Pang, José Miguel Schmid and colleagues, with an educational fallon from [employer]. Thrive Questionnaire Date Thrive assessed: 10/23/22 AUDIT C Alcohol Use Questionnaire (AUDIT-C) 1. How often do you have a drink containing alcohol?: Never 2. How many drinks containing alcohol do you have on a typical day when you are drinking?: 1 or 2 (0) 3. How often do you have six or more drinks on one occasion?: Never Total Score: 0 JONY-7 AMB Questionnaire JONY-7 Date JONY - 7 assessed: 10/23/22 Source: Developed by Drs. Gallito Day, Raquel Pang, José Miguel Schmid and colleagues, with an educational fallon from [employer]. Physical exam (Primary Care) Vital Signs: Last Vital Signs Pulse 57 03/09/23 13:58 BP 112/72 03/09/23 13:58 Pulse Ox 98 03/09/23 13:58 Oxygen Delivery Method Room Air 03/09/23 13:58 BMI result Body Mass Index 19.3 Tobacco/Smoking Status: Tobacco use Status Tobacco use date assessed 10/23/22 03/09/23 14:02 Patient Tobacco Use Status Never used Tobacco 03/09/23 14:02 e-Cigarette/Vaping Use Never Used 03/09/23 14:02 PHQ-9: PHQ-9 Score PHQ-9: Total score 0 03/09/23 14:02 Depression Screening Interpretation: Negative Thrive Assessment: Date of Thrive Assessment Date Thrive assessed 10/23/22 03/09/23 14:02 Const General: alert; No acute distress Eyes Conjunctivae: conjunctivae normal Resp Auscultation: clear to auscultation bilaterally Cardio Rate: regular rate Rhythm: regular rhythm GI Inspection: Yes normal to inspection Extrem General: Yes normal to inspection and No edema Assessment and Plan Assessment & Plan (1) Osteoarthritis of right shoulder: Code(s): M19.011 - Primary osteoarthritis, right shoulder Plan: Patient has seen rheumatology before and had injections in October 2022 (2) Osteopenia: Comment: June 20172017 Code(s): M85.80 - Other specified disorders of bone density and structure, unspecified site Plan: Bone density requested (3) Impaired glucose tolerance: Code(s): R73.02 - Impaired glucose tolerance (oral) Plan: Decrease the amount of carbohydrate intake, pasta, bread, rice and potatoes are all sugar and that is aside from all the sweet stuff, remember that fruits are good but they are Sweet also. (4) Hypercholesterolemia: Code(s): E78.00 - Pure hypercholesterolemia, unspecified Plan: Avoid fried foods, chicken skin, eggs, butter margarine, pastries and meat. Be it pork or beef they have a lot of cholesterol LDL goal of less than 130 and triglyceride of less than 150 (5) Fibromyalgia: Code(s): M79.7 - Fibromyalgia Plan: Keep active a row big exercises (6) Breast cancer screening by mammogram: Code(s): Z12.31 - Encounter for screening mammogram for malignant neoplasm of breast (7) Carpal tunnel syndrome: Comment: 2019 early Code(s): G56.00 - Carpal tunnel syndrome, unspecified upper limb Qualifiers: Laterality: right Qualified Code(s): G56.01 - Carpal tunnel syndrome, right upper limb (8) Hoarseness of voice: Code(s): R49.0 - Dysphonia Orders: Orders XR DEXA axial skeleton Today M81.0 - Age-related osteoporosis without current pathological fracture, M85.80 - Other specified disorders of bone density and structure, unspecified site Referrals Orthopedics Referral M19.011 - Primary osteoarthritis, right shoulder Ear/Nose/Throat Referral R49.0 - Dysphonia Dermatology Referral L65.9 - Nonscarring hair loss, unspecified Coding Level of Care Code Est Pt Level 4 (68358) Diagnoses Osteoarthritis of right shoulder M19.011 Osteopenia M85.80 Impaired glucose tolerance R73.02 Hypercholesterolemia E78.00 Fibromyalgia M79.7 Breast cancer screening by mammogram Z12.31 Carpal tunnel syndrome G56.01 Laterality: right Hoarseness of voice R49.0
== END 2023-03-09 14:23 | disposition home or self-care (01) ==
PROVIDERS: PCP Internal Medicine; Visit Provider Internal Medicine
DX: M19.011 Primary osteoarthritis, right shoulder (principal); M85.80 Other specified disorders of bone density and structure, unspecified site; R73.02 Impaired glucose tolerance (oral); E78.00 Pure hypercholesterolemia, unspecified; M79.7 Fibromyalgia; Z12.31 Encounter for screening mammogram for malignant neoplasm of breast; G56.01 Carpal tunnel syndrome, right upper limb; R49.0 Dysphonia
CPT/HCPCS: 99214

== ENCOUNTER 2023-04-12 12:29 | Outpatient (REF) | payer OTHER, SELFPAY ==
--- NOTE | ~2023-04-12 | MM_ITS ---
EXAMINATION: BONE DENSITOMETRY CLINICAL INDICATION: Age-related osteoporosis without current pathological fracture. COMPARISON: Previous BD dated 03/18/2021 and baseline BD dated 12/27/2009. TECHNIQUE: Using a [employer] DXA System (software version: 13.1) manufactured by [employer], dual-energy x-ray absorptiometry was performed of the lumbar spine and left hip. The images are of good technical quality. Summary results are attached. FINDINGS: AP SPINE L1-L4: Current: BMD 1.078 g/cm2, Z-score 0.9, T-score -0.9, normal, 2.6% decrease from previous, 11.8% decrease from baseline (<5% change is not significant). Prior: BMD 1.107 g/cm2. Baseline: BMD 1.222 g/cm2. LEFT FEMUR, NECK: Current: BMD 0.919 g/cm2, Z-score 0.7, T-score -0.9, normal. Prior: BMD 0.877 g/cm2. Baseline: BMD 0.989 g/cm2. LEFT FEMUR, TOTAL: Current: BMD 0.903 g/cm2, Z-score 0.5, T-score -0.8, normal, 5.4% decrease from previous, 12.8% decrease from baseline (<5% change is not significant). Prior: BMD 0.955 g/cm2. Baseline: BMD 1.036 g/cm2. IDENTIFIED RISK FACTORS: Rheumatoid arthritis. Low calcium intake. Secondary osteoporosis (early menopause). Anticonvulsants. HISTORY OF FRACTURE: None listed. MEDICATIONS: Calcium supplement and/or multivitamin. Vitamin D. MM/XR DEXA axial skeleton IMPRESSION: 1. DIAGNOSIS: Normal bone density based on the lowest T-score value of -0.9 in the lumbar spine and femoral neck applying World Health Organization criteria. 2. 10-YEAR FRACTURE RISK PREDICTION, FRAX: According to the guidelines, FRAX calculation should only be performed on patients in the osteopenia bone density category.?Therefore, FRAX was not performed on this patient.? 3. Treatment Recommendations: NOF guidelines recommend consideration for treatment in postmenopausal women and men age 50 and older presenting with the following: -A hip or vertebral (clinical or morphometric) fracture. -T-score less than or equal to -2.5 at the femoral neck or spine after appropriate evaluation to exclude secondary causes. -Low bone mass at the hip or spine and a 10-year fracture probability by FRAX of greater than or equal to 3% for hip fracture or greater than or equal to 20% for major osteoporotic fracture based on the [place] adapted WHO algorithm. 4. Other Recommendations: All treatment decisions require clinical judgment and consideration of individual patient factors, including patient preferences, comorbidities, previous drug use, risk factors not captured in the FRAX model (e.g. frailty, falls, vitamin D deficiency, increased bone turnover, interval significant decline in bone density) and possible under or overestimation of fracture risk by FRAX. FUTURE SCAN RECOMMENDATION: People with diagnosed cases of osteoporosis or at high risk for fracture should have regular bone mineral density tests. For patients eligible for Medicare, routine testing is allowed once every 2 years. The testing frequency can be increased to one year for patients who have rapidly progressing disease, those who are receiving or discontinuing medical therapy to restore bone mass, or have additional risk factors.
--- NOTE | ~2023-04-12 | MM_ITS ---
EXAMINATION: MM SCREENING DIGITAL BREAST TOMOSYNTHESIS, BILATERAL CLINICAL INFORMATION: Screening. Asymptomatic. COMPARISON: Mammography: 03/18/2021, 07/16/2019, 04/23/2018, 01/19/2017, and dating back to 2014. TECHNIQUE: Digital breast tomosynthesis is performed in both the craniocaudal and mediolateral oblique views along with computer-aided detection (CAD). Synthesized 2D images are generated from the tomosynthesis. FINDINGS: The breasts are heterogeneously dense, which may obscure small masses (ACR BI-RADS breast composition Category c). There are no suspicious masses, suspicious grouped calcifications, or areas of architectural distortion. The parenchymal pattern is stable from prior exams. MM/MM tomosynthesis screening BI IMPRESSION: No mammographic evidence of malignancy. ASSESSMENT: BI-RADS BI-RADS 1 - Negative RECOMMENDATION: Routine annual mammography screening. 1 year F/U This examination should not preclude the clinical evaluation of a suspicious palpable abnormality. This patient's information was entered into a reminder system with a target due date for their next mammogram.
== END 2023-04-12 12:30 | disposition home or self-care (01) ==
LOC: HO.MAMMO 12:29
PROVIDERS: PCP Internal Medicine; Visit Provider Internal Medicine
DX: Z12.31 Encounter for screening mammogram for malignant neoplasm of breast (principal); Z13.820 Encounter for screening for osteoporosis; Z78.0 Asymptomatic menopausal state; M81.0 Age-related osteoporosis without current pathological fracture
CPT/HCPCS: 77063; 77067; 77080

== ENCOUNTER → 2023-04-12 13:00 | Outpatient (BNV) | payer OTHER, SELFPAY | PROVIDERS: PCP Internal Medicine; Visit Provider Radiology Diagnostic Radiology | DX: Z12.31 Encounter for screening mammogram for malignant neoplasm of breast (principal) | CPT/HCPCS: 77063; 77067; 77080 ==

== ENCOUNTER 2023-04-19 10:50 | Outpatient (AMB) | payer OTHER, SELFPAY ==
[2023-04-19 10:51] VITALS: BMI 19.3
--- NOTE | 2023-04-19 10:51 | A.OFFVIS_ITS ---
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 Hx of fibromyalgia. She was referred by Rheumatology who provided an injection on 10/26/2022. This injection was only helpful for a few months. Patient reports that she has had pain in the right shoulder for years now. She has numbness and tingling in the right arm. She has increased pain with lifting, reaching and other above the head activities. She tylenol, cyclobenzaprine and gabapentin for her pain, she finds the muscle relaxer most helpful Allergies aspirin [ASPIRIN] Allergy (Unknown, Verified 03/09/23 13:58) STOMACH UPSET, irritation baclofen Allergy (Unknown, Verified 03/09/23 13:58) mouth ulcer naproxen Allergy (Unknown, Verified 03/09/23 13:58) mouth sores tramadol [TRAMADOL] Allergy (Unknown, Verified 03/09/23 13:58) DIZZY, N&V, dizziness sumatriptan [From Imitrex] Adverse Reaction (Intermediate, Verified 03/09/23 13:58) Chest Pain HPI [employer] IN[employer]ER- Rt shoulder OA HPI Details Juju is a 62 year old woman who presents with complaints of chronic right shoulder OA pain. She has a hx of Fibromyalgia and received an injection from Rheumatology on 10/26/22, with relief. [place] patient She complains of pain with daily activity, worse with lifting, reaching, and overhead activities. She also complains of numbness in her right arm She has tried NSAIDs, Gabapentin, and muscle relaxers. She found Cyclobenzaprine to help her the most with pain. PFSH Medical History Carpal tunnel syndrome FARHAD II (cervical intraepithelial neoplasia II) Fibromyalgia HPV test positive Hypercholesterolemia Impaired glucose tolerance Left shoulder pain Migraine Osteopenia Rotator cuff injury Thyroid nodule Urinary frequency Urinary urgency Vitamin D deficiency Surgical History H/O LEEP Family History Father CVD (cardiovascular disease) Mother Diabetes Hypertension Social History Housing: House Alcohol intake: never Patient Tobacco Use Status: Never used Tobacco e-Cigarette/Vaping Use: Never Used Second Hand Smoke Exposure: No service: No Current occupational status: unemployed Cognitive needs: No Hearing needs: No Vision needs: Yes Review of Systems Const All systems reviewed & are unremarkable except as noted in HPI and below Physical Exam Vital Signs: BMI result Body Mass Index 19.3 Const General: no acute distress, alert and awake Orientation/consciousness: patient oriented x3 HEENT Head: Yes normocephalic and Yes atraumatic Eyes EOM: EOMs intact bilaterally Resp Effort & Inspection: normal respiratory effort and able to speak in complete sentences Cardio Jugular venous distension: no JVD Skin General skin exam: turgor normal Rashes: no rashes Neuro General: patient oriented x3 Extrem Other: Right Shoulder: 4/5 strength with empty can ER to 45 degrees Psych Appearance: grossly normal Affect: normal affect Attitude: cooperative Results Reviewed Results Reviewed: I personally reviewed relevant radiographs. Mild glenohumeral osteoarthritis. Assessment & Plan Assessment & Plan (1) Internal derangement of right shoulder: Code(s): M24.811 - Other specific joint derangements of right shoulder, not elsewhere classified Plan: This is a 62 year old woman internal derangement of the right shoulder, with some mild GH OA. She has pain with daily activity, worse with overhead activities and at night. She found good relief from steroid injections in the past. I discussed her diagnosis and treatment options. I ordered an MRI of her shoulder, and recommend she take NSAIDs. She will follow up when completed for review. (2) Osteoarthritis of right shoulder: Code(s): M19.011 - Primary osteoarthritis, right shoulder Plan Scribed for Jas Bennett MD by Tom Macias, medical policy specialist, on 04/19/23 at 11:30 AM, EST. Orders: Orders MR shoulder RT wo con 04/19/23 M24.811 - Other specific joint derangements of right shoulder, not elsewhere classified Coding Level of Care Code New Pt Level 4 (92756) Diagnoses Internal derangement of right shoulder M24.811 Osteoarthritis of right shoulder M19.011
== END 2023-04-19 11:31 | disposition home or self-care (01) ==
PROVIDERS: PCP Internal Medicine; Visit Provider Orthopaedic Surgery
DX: M24.811 Other specific joint derangements of right shoulder, not elsewhere classified (principal); M19.011 Primary osteoarthritis, right shoulder
CPT/HCPCS: 99204

== ENCOUNTER → 2023-04-19 10:50 | Outpatient (BNVA) | payer OTHER, SELFPAY | PROVIDERS: PCP Internal Medicine; Visit Provider Orthopaedic Surgery | DX: M24.811 Other specific joint derangements of right shoulder, not elsewhere classified (principal); M19.011 Primary osteoarthritis, right shoulder | CPT/HCPCS: 99202 ==

== ENCOUNTER 2023-04-23 13:16 | Outpatient (AMB) | payer OTHER, SELFPAY ==
[2023-04-23 13:24] VITALS: BP 112/70; PULSE 73; O2SAT 98; BMI 19.8
--- NOTE | 2023-04-23 13:24 | A.OFFPC_ITS ---
Vital Signs 04/23/23 13:24 Height 5 ft 5 in Weight 119 lb BMI 19.8 BP 112/70 Blood Pressure Location Lt brachial Position Sitting Pulse 73 Pulse Source Pulse Oximeter Pulse Oximetry (%) 98 Oxygen Delivery Method Room Air Intake Visit Reasons: fibromyalgia Allergies aspirin [ASPIRIN] Allergy (Unknown, Verified 04/23/23 13:24) STOMACH UPSET, irritation baclofen Allergy (Unknown, Verified 04/23/23 13:24) mouth ulcer naproxen Allergy (Unknown, Verified 04/23/23 13:24) mouth sores tramadol [TRAMADOL] Allergy (Unknown, Verified 04/23/23 13:24) DIZZY, N&V, dizziness sumatriptan [From Imitrex] Adverse Reaction (Intermediate, Verified 04/23/23 13:24) Chest Pain Medication List - Last Reconciled 04/23/23 by Asiya Wyman MD acetaminophen (Tylenol) 650 mg (2 x 325 mg) PO Q6H PRN amitriptyline 10 mg PO BEDTIME calcium carbonate-vitamin D3 600 mg-5 mcg (200 unit) (Calcium 600 + D(3)) 1 tab PO DAILY cyclobenzaprine 10 mg PO TID PRN fluticasone propionate 50 mcg/actuation 1 spray intranasal DAILY gabapentin 400 mg PO BID ibuprofen 600 mg PO Q6H PRN mometasone 0.1% 1 appl topical DAILY 2 weeks multivitamin 1 tab PO DAILY qonzxvxe-gtgpamqur-CL 3.5-10,000-1 mg/mL-unit/mL-% 4 drps otic (ear) right TID 5 days propranolol 10 mg PO BID psyllium husk (Metamucil) 0.4 grams PO DAILY PRN sennosides-docusate sodium 8.6-50 mg (Senna Plus) 2 tab-caps (2 x 8.6-50 mg) PO BEDTIME tolterodine ER 4 mg PO DAILY 90 days Tobacco use date assessed: 10/23/22 Dental Screening Dental Screen Date: 04/23/23 Did you have a dental visit in the last 12 months?: Yes Did you have a dental problem in the last 6 months where you did not have access to dental care?: No Was dental information given to patient?: Patient has dentist HPI fibromyalgia HPI Details 62-year-old female with right shoulder osteoarthritis, osteopenia impaired glucose tolerance hypercholesterolemia fibromyalgia coming in for follow-up. Last seen in February 2023 had hoarseness and was referred to Ear Nose and Throat. Patient's colonoscopy is due next year, mammogram due this year. Patient is here for follow-up. Review of the notes was seen by Orthopedics for a right shoulder pain October 2022 had injection on the Rheumatology. Orthopedics advised MR PHILLIP Medical History (Updated 04/23/23 @ 13:55 by Asiya Wyman MD) Breast cancer screening by mammogram Carpal tunnel syndrome FARHAD II (cervical intraepithelial neoplasia II) Fibromyalgia HPV test positive Hypercholesterolemia Impaired glucose tolerance Left shoulder pain Migraine Osteopenia Rotator cuff injury Thyroid nodule Urinary frequency Urinary urgency Vitamin D deficiency Surgical History H/O LEEP Family History Father CVD (cardiovascular disease) Mother Diabetes Hypertension Social History Housing: House Alcohol intake: never Patient Tobacco Use Status: Never used Tobacco e-Cigarette/Vaping Use: Never Used Second Hand Smoke Exposure: No service: No Current occupational status: unemployed Cognitive needs: No Hearing needs: No Vision needs: Yes Questionnaire PHQ-9 Over the last 2 weeks, how often have you been bothered by any of the following problems? 1. Little interest or pleasure in doing things: not at all 2. Feeling down, depressed, or hopeless: not at all 3. Trouble falling or staying asleep, or sleeping too much: not at all 4. Feeling tired or having little energy: not at all 5. Poor appetite or overeating: not at all 6. Feeling bad about yourself - or that you are a failure or have let yourself or your family down: not at all 7. Trouble concentrating on things, such as reading the newspaper or watching television: not at all 8. Moving or speaking so slowly that other people could have noticed. Or the opposite - being so fidgety or restless that you have been moving around a lot more than usual: not at all 9. Thoughts that you would be better off or of hurting yourself in some way: not at all Total score: 0 Depression Screening Interpretation: Negative Source: Developed by Drs. Gallito Day, José Miguel Bello and colleagues, with an educational fallon from [employer]. Thrive Questionnaire Date Thrive assessed: 10/23/22 AUDIT C Alcohol Use Questionnaire (AUDIT-C) 1. How often do you have a drink containing alcohol?: Never 2. How many drinks containing alcohol do you have on a typical day when you are drinking?: 1 or 2 (0) 3. How often do you have six or more drinks on one occasion?: Never Total Score: 0 JONY-7 AMB Questionnaire JONY-7 Date JONY - 7 assessed: 10/23/22 Source: Developed by Drs. Gallito Day, José Miguel Bello and colleagues, with an educational fallon from [employer]. Physical exam (Primary Care) Vital Signs: Last Vital Signs Pulse 73 04/23/23 13:24 BP 112/70 04/23/23 13:24 Pulse Ox 98 04/23/23 13:24 Oxygen Delivery Method Room Air 04/23/23 13:24 BMI result Body Mass Index 19.8 Tobacco/Smoking Status: Tobacco use Status Tobacco use date assessed 10/23/22 04/23/23 13:29 Patient Tobacco Use Status Never used Tobacco 04/23/23 13:29 e-Cigarette/Vaping Use Never Used 04/23/23 13:29 PHQ-9: PHQ-9 Score PHQ-9: Total score 0 04/23/23 13:29 Depression Screening Interpretation: Negative Thrive Assessment: Date of Thrive Assessment Date Thrive assessed 10/23/22 04/23/23 13:29 Const General: alert; No acute distress Eyes Conjunctivae: conjunctivae normal Resp Auscultation: clear to auscultation bilaterally Cardio Rate: regular rate Rhythm: regular rhythm GI Inspection: Yes normal to inspection Extrem General: Yes normal to inspection and No edema Assessment and Plan Assessment & Plan (1) Internal derangement of right shoulder: Code(s): M24.811 - Other specific joint derangements of right shoulder, not elsewhere classified Plan: Patient has been follow-up with Ortho as well as rheumatology had injections October 2022 advised MR (2) Fibromyalgia: Code(s): M79.7 - Fibromyalgia Plan: Keep active, eat healthy keep well hydrated (3) Migraine: Code(s): G43.909 - Migraine, unspecified, not intractable, without status migrainosus Qualifiers: Migraine type: without aura Status migrainosus presence: without status migrainosus Intractability: not intractable Qualified Code(s): G43.009 - Migraine without aura, not intractable, without status migrainosus Plan: Continue with migraine medication as needed (4) Hypercholesterolemia: Code(s): E78.00 - Pure hypercholesterolemia, unspecified Plan: Avoid fried foods, chicken skin, eggs, butter margarine, pastries and meat. Be it pork or beef they have a lot of cholesterol LDL goal of less than 130 and triglyceride of less than 150 (5) Impaired glucose tolerance: Code(s): R73.02 - Impaired glucose tolerance (oral) Plan: Decrease the amount of carbohydrate intake, pasta, bread, rice and potatoes are all sugar and that is aside from all the sweet stuff, remember that fruits are good but they are Sweet also. (6) Osteopenia: Comment: June 20172017 Code(s): M85.80 - Other specified disorders of bone density and structure, unspecified site Plan: Continue to monitor with bone density, patient is on calcium and vitamin (7) Respiratory infection: Code(s): J98.8 - Other specified respiratory disorders (8) Cervical cancer screening: Code(s): Z12.4 - Encounter for screening for malignant neoplasm of cervix Orders: Orders Comprehensive Met. Panel 6 Months E78.00 - Pure hypercholesterolemia, unspecified Lipid Panel 6 Months E78.00 - Pure hypercholesterolemia, unspecified Referrals [employer] Referral Z12.4 - Encounter for screening for malignant neoplasm of cervix Coding Level of Care Code Est Pt Level 4 (65926) Diagnoses Internal derangement of right shoulder M24.811 Fibromyalgia M79.7 Migraine G43.009 Migraine type: without aura Status migrainosus presence: without status migrainosus Intractability: not intractable Hypercholesterolemia E78.00 Impaired glucose tolerance R73.02 Osteopenia M85.80 Respiratory infection J98.8 Cervical cancer screening Z12.4
== END 2023-04-23 13:59 | disposition home or self-care (01) ==
PROVIDERS: Visit Provider Internal Medicine
DX: M24.811 Other specific joint derangements of right shoulder, not elsewhere classified (principal); M79.7 Fibromyalgia; G43.009 Migraine without aura, not intractable, without status migrainosus; E78.00 Pure hypercholesterolemia, unspecified; R73.02 Impaired glucose tolerance (oral); M85.80 Other specified disorders of bone density and structure, unspecified site; J98.8 Other specified respiratory disorders; Z12.4 Encounter for screening for malignant neoplasm of cervix
CPT/HCPCS: 99214

== ENCOUNTER 2023-05-10 10:36 | Outpatient (REF) | payer OTHER, SELFPAY ==
--- NOTE | ~2023-05-10 | FL_ITS ---
EXAMINATION: XR FLUOROSCOPY BARIUM SWALLOW WITH AIR CLINICAL INFORMATION: Coarseness and dysphasia. COMPARISON: No relevant prior. TECHNIQUE: Fluoroscopic air contrast barium swallow examination was performed utilizing standard techniques with thin and thick barium and effervescent granules. Numerous spot images were obtained, as well as fluoroscopic cine clips. FINDINGS: Lateral cine images of the oropharynx and hypopharynx demonstrate normal swallow mechanism with normal epiglottic inversion and soft palate elevation. No tracheal penetration, glottic or subglottic aspiration identified. No nasopharyngeal reflux present. Hypopharyngeal structures appear normal without evidence of mass or diverticulum. There was no significant cricopharyngeal achalasia. Dual and single contrast images of the esophagus demonstrate normal caliber, contour, and mucosal pattern. No evidence of stricture, mass, or ulcerations identified. Esophageal peristalsis was normal aside from mild tertiary contractions. No evidence of hiatus hernia identified. Extensive gastroesophageal reflux was seen during the course of the examination to the level of the thoracic inlet. Dual contrast and single contrast images of the stomach demonstrated normal contour and mucosal pattern without evidence of mass, ulceration, or other abnormality. Contrast freely passed into the gastric antrum and duodenal bulb without delay. Single and air-contrast images of the duodenal bulb demonstrate no abnormality. The duodenal sweep has a normal appearance, course, and mucosal fold appearance. The imaged proximal jejunum has a normal fold pattern and caliber. FLUOROSCOPY TIME: 3 minutes 20 seconds. Number of Spot Images: 474 DOSE AREA PRODUCT: 1444 uGy-m2 (microgray-meter squared) FL/FL barium swallow with air IMPRESSION: 1. Marked gastroesophageal reflux to the level of the thoracic inlet. 2. Mild presbyesophagus. 3. Otherwise, normal examination.
--- NOTE | ~2023-05-10 | XR_ITS ---
EXAMINATION: XR SINUSES CLINICAL INFORMATION: Sinusitis COMPARISON: None available. TECHNIQUE: Babcock, Hutson, lateral and 3 submental vertex views of the paranasal sinuses. FINDINGS: No gross air-fluid levels identified within the paranasal sinuses. XR/XR sinus min 3V IMPRESSION: No gross air-fluid levels identified within the paranasal sinuses. Additional imaging with CT scan or MRI is strongly recommended as these studies are much more sensitive for evaluation of intracranial pathology such as sinusitis.
== END 2023-05-10 10:37 | disposition home or self-care (01) ==
LOC: HO.XRAY 10:36
PROVIDERS: PCP Internal Medicine; Visit Provider Otolaryngology
DX: R13.10 Dysphagia, unspecified (principal); J32.9 Chronic sinusitis, unspecified
CPT/HCPCS: 70220; 74221

== ENCOUNTER → 2023-05-10 10:39 | Outpatient (BNV) | payer OTHER, SELFPAY | PROVIDERS: PCP Internal Medicine; Visit Provider Radiology Diagnostic Radiology | DX: R13.10 Dysphagia, unspecified (principal) | CPT/HCPCS: 74221 ==

== ENCOUNTER 2023-06-11 18:35 | Outpatient (REF) | payer OTHER, SELFPAY ==
--- NOTE | ~2023-06-11 | MR_ITS ---
EXAMINATION: MR SHOULDER WITHOUT CONTRAST, RIGHT CLINICAL INFORMATION: Right shoulder pain and swelling. COMPARISON: Right shoulder radiographs dated 10/03/2022 and MRI dated 08/01/2016. TECHNIQUE: MRI of the shoulder without contrast was performed on a high-field scanner. FINDINGS: ROTATOR CUFF: Prominent supraspinatus and more mild infraspinatus tendinosis is redemonstrated, similar when compared to the prior examination without a definite, measurable rotator cuff tendon tear. More mild subscapularis tendinosis is unchanged. No muscle atrophy or fatty infiltration. BICEPS: Intact. CORACOACROMIAL ARCH: The undersurface of the acromion is curved with no subacromial spur. Moderate acromioclavicular osteoarthritis with increasing marrow edema. Fluid within the subacromial-subdeltoid bursa with adjacent edema, increased when compared to the prior examination and consistent with bursitis. Subacromial space: 0.7 cm. Subcoracoid space: 1.0 cm. LABRUM/CAPSULE: No labral tear. Intact joint capsule. GLENOHUMERAL JOINT/MARROW: Intact articular cartilage. No acute osseous injury. MR/MR shoulder RT wo con IMPRESSION: 1. Prominent supraspinatus and more mild infraspinatus tendinosis as well as more mild subscapularis tendinosis, similar when compared to the prior examination. No measurable rotator cuff tendon tear. 2. Moderate acromioclavicular osteoarthritis with increasing marrow edema. 3. Subacromial-subdeltoid bursitis, increased when compared to the prior examination.
== END 2023-06-11 18:36 | disposition home or self-care (01) ==
LOC: HO.MRI 18:35
PROVIDERS: PCP Internal Medicine; Visit Provider Orthopaedic Surgery
DX: M24.811 Other specific joint derangements of right shoulder, not elsewhere classified (principal)
CPT/HCPCS: 73221

== ENCOUNTER 2023-06-25 12:21 | Outpatient (AMB) | payer OTHER, SELFPAY ==
--- NOTE | 2023-06-25 12:36 | A.OFFVIS_ITS ---
Intake Intake Visit Reasons: OV - Right Shoulder MRI follow up Intake Note: Juju is a 62 year old right hand dominant female who presents today for an MRI review of her right shoulder. Patient reports that her shoulder pain has increased since the last time she was seen. Allergies aspirin [ASPIRIN] Allergy (Unknown, Verified 04/23/23 13:24) STOMACH UPSET, irritation baclofen Allergy (Unknown, Verified 04/23/23 13:24) mouth ulcer naproxen Allergy (Unknown, Verified 04/23/23 13:24) mouth sores tramadol [TRAMADOL] Allergy (Unknown, Verified 04/23/23 13:24) DIZZY, N&V, dizziness sumatriptan [From Imitrex] Adverse Reaction (Intermediate, Verified 04/23/23 13:24) Chest Pain HPI OV - Right Shoulder MRI follow up HPI Details Juju is a 62 year old woman who returns for an MRI review of her right shoulder pain.. She has a hx of Fibromyalgia and received an injection from Rheumatology on 10/26/22, with relief. She complains of pain with daily activity, worse with lifting, reaching, and overhead activities. She says she has had pain for a long time but her pain worsened in the last ~2 months. She says she is unable to sleep at night due to her pain. She feels she overuses her right arm with activities, such as cleaning or lifting. She has tried NSAIDs, Gabapentin, and muscle relaxers. She found Cyclobenzaprine to help her the most with pain. [facility] Medical History (Updated 06/26/23 @ 10:41 by Jas Bennett MD) Urinary urgency Urinary frequency Breast cancer screening by mammogram Impaired glucose tolerance Hypercholesterolemia FARHAD II (cervical intraepithelial neoplasia II) Thyroid nodule Vitamin D deficiency Migraine Left shoulder pain HPV test positive Osteopenia Rotator cuff injury Carpal tunnel syndrome Fibromyalgia Surgical History H/O LEEP Family History Father CVD (cardiovascular disease) Mother Diabetes Hypertension Social History Housing: House Alcohol intake: never Patient Tobacco Use Status: Never used Tobacco e-Cigarette/Vaping Use: Never Used Second Hand Smoke Exposure: No service: No Current occupational status: unemployed Cognitive needs: No Hearing needs: No Vision needs: Yes Review of Systems Const All systems reviewed & are unremarkable except as noted in HPI and below Physical Exam Const General: no acute distress, alert and awake Orientation/consciousness: patient oriented x3 HEENT Head: Yes normocephalic and Yes atraumatic Eyes General: appearance normal, both eyes and all related structures Alignment and Position: alignment normal Conjunctivae: conjunctivae normal EOM: EOMs intact bilaterally Neck Neck: Yes normal visual inspection and Yes trachea midline Resp Other: No rerpiratory distress Effort & Inspection: normal respiratory effort and able to speak in complete sentences Cardio Other: Palpable radial pulse with no appreciable rythmic abnormalities Jugular venous distension: no JVD GI Other: No abdominal distension Back/Spine/Pelvis Cervical Spine: normal cervical lordosis and cervical ROM normal Skin General skin exam: turgor normal Rashes: no rashes Neuro General: patient oriented x3 Extrem Other: Shoulder: TTP: AC joint ROM: 45/90/130/L5 Hawkin's: + Neer: + Empty can: - Lag: - Lift off: - Psych Appearance: grossly normal Affect: normal affect Attitude: cooperative Results Reviewed Results Reviewed: I personally reviewed relevant MR images 1. Prominent supraspinatus and more mild infraspinatus tendinosis as well as more mild subscapularis tendinosis, similar when compared to the prior examination. No measurable rotator cuff tendon tear. 2. Moderate acromioclavicular osteoarthritis with increasing marrow edema. 3. Subacromial-subdeltoid bursitis, increased when compared to the prior examination. Assessment & Plan Assessment & Plan (1) Subacromial impingement of right shoulder: Code(s): M75.41 - Impingement syndrome of right shoulder Plan: This is a 62 year old woman subacromial impingement of the right shoulder as well as ACJ OA. She has pain with daily activity, worse with overhead activities and at night. She found modest relief from steroid injections in the past but feels that she has plateaued. I discussed her diagnosis and treatment options, including surgery vs continuing injections. SHe has not benefitted from PT and NSAIDs are not helping. I recommend a right shoulder and distal clavicle excision. I discussed the risks, benefits, and alternatives including, but not limited to, the risk of pain, infection, stiffness, need for further surgery as well as potential medical complications such as blood clots, pulmonary embolism and cardiac complications. I discussed the recovery timeline and process as well as the importance of PT. Juju is a good candidate for this surgery, and she wishes to proceed with this decision. She will speak with our SS to schedule this procedure. Plan Scribed for Jas Bennett MD by Tom Macias, certified medical dosimetrist, on 06/25/23 at 12:50 PM, EST. Coding Level of Care Code Est Pt Level 4 (26561) Diagnoses Subacromial impingement of right shoulder M75.41
== END 2023-06-25 13:05 | disposition home or self-care (01) ==
PROVIDERS: PCP Internal Medicine; Visit Provider Orthopaedic Surgery
DX: M75.41 Impingement syndrome of right shoulder (principal); M19.011 Primary osteoarthritis, right shoulder
CPT/HCPCS: 99214

== ENCOUNTER → 2023-06-25 12:21 | Outpatient (BNVA) | payer OTHER, SELFPAY | PROVIDERS: PCP Internal Medicine; Visit Provider Orthopaedic Surgery | DX: M75.41 Impingement syndrome of right shoulder (principal) | CPT/HCPCS: 99212 ==

== ENCOUNTER 2023-08-06 12:27 | Outpatient (REF) | payer OTHER, SELFPAY ==
[2023-08-09 21:38] LABS: HPV mRNA E6/E7 rflx Not Detected (Not Detected)
== END 2023-08-06 12:28 | disposition home or self-care (01) ==
LOC: HO.LNP 12:27
PROVIDERS: Advanced Practice Midwife; PCP Internal Medicine; Visit Provider Obstetrics & Gynecology
DX: Z01.419 Encounter for gynecological examination (general) (routine) without abnormal findings (principal); Z11.51 Encounter for screening for human papillomavirus (HPV)
CPT/HCPCS: 87624; 88142

== ENCOUNTER 2023-08-06 12:27 | Outpatient (AMB) | payer OTHER, SELFPAY ==
--- NOTE | 2023-08-06 12:59 | MHC.OFFVIS ---
Intake Vital Signs 08/06/23 13:01 Height 5 ft 5 in Weight 112 lb BMI 18.6 BP 122/82 Intake Visit Reasons: [employer] Annual/PCP Ref Intake Note: no concerns Creel Operator Required: No Information Interpreted: non-clinical & clinical Vice President Of Sales: Vice President Of Sales Present (Tavia MATT) Accompanied by: Self / Same As Patient Allergies aspirin [ASPIRIN] Allergy (Unknown, Verified 04/23/23 13:24) STOMACH UPSET, irritation baclofen Allergy (Unknown, Verified 04/23/23 13:24) mouth ulcer naproxen Allergy (Unknown, Verified 04/23/23 13:24) mouth sores tramadol [TRAMADOL] Allergy (Unknown, Verified 04/23/23 13:24) DIZZY, N&V, dizziness sumatriptan [From Imitrex] Adverse Reaction (Intermediate, Verified 04/23/23 13:24) Chest Pain Post menopausal: Yes HPI HPI Comments History of Present Illness Details Presenting for annual exam. No complaints. Last Pap/HPV was in 04/14 was negative, the patient has a history of FARHAD 3 status post LEEP in 03/07 P Last Mammogram was BI-RADS 1 in 04/18 No previous screening Colonoscopy PFSH Medical History FARHAD III (cervical intraepithelial neoplasia grade III) with severe dysplasia Urinary urgency Urinary frequency Breast cancer screening by mammogram Impaired glucose tolerance Hypercholesterolemia Thyroid nodule Vitamin D deficiency Migraine Left shoulder pain HPV test positive Osteopenia Rotator cuff injury Carpal tunnel syndrome Fibromyalgia Surgical History H/O LEEP Family History Father CVD (cardiovascular disease) Mother Diabetes Hypertension Social History Household Members: Spouse Housing: House Alcohol intake: never Patient Tobacco Use Status: Never used Tobacco e-Cigarette/Vaping Use: Never Used Second Hand Smoke Exposure: No service: No Current occupational status: unemployed Sexual orientation: Straight/Heterosexual Gender identity: Female Cognitive needs: No Hearing needs: No Vision needs: Yes Female Reproductive History Menstrual Total pregnancies: 0 Date of last pap smear: 04/17/19 Date of Mammogram: 04/12/23 Review of Systems Const All systems reviewed & are unremarkable except as noted in HPI and below Card Reports as per HPI Resp Reports as per HPI GI Reports as per HPI and Reports no additional complaints Reports as per HPI Physical Exam Vital Signs: BMI result Body Mass Index 18.6 Const General: cooperative, healthy appearing and comfortable Chest Chest palpation & inspection: normal inspection of the chest and normal palpation of entire chest wall Breast/axilla inspection: normal inspection of the breasts and normal inspection of the axillae Breast/axilla palpation: normal palpation of the breasts, normal palpation of the axillae and no axillary lymphadenopathy Resp Effort & Inspection: normal respiratory effort Auscultation: clear to auscultation bilaterally Percussion: percussion normal Cardio Palpation: normal PMI Rate: regular rate Rhythm: regular rhythm Heart sounds: no murmurs and no rubs Peripheral pulses: Peripheral pulses 2+ throughout GI Inspection: Yes normal to inspection Palpation (GI): Soft to palpation, nontender, no guarding, not rigid and No hepatosplenomegaly present Percussion: Yes normal to percussion Auscultation: normal bowel sounds Rectal Exam - Female: deferred General: Yes bladder normal to palpation External Female Exam: No lesion Speculum Exam - Vagina: normal appearance of the vagina, normal palpation, normal vaginal discharge and not erythematous Speculum Exam - Cervix: normal appearance of the cervix and normal palpation Bimanual exam- vagina & uterus: normal bimanual exam, normal palpation, uterine size normal, bladder normal to palpation, consistency normal and normal palpation Bimanual Exam- Adnexa, other: normal adnexae, no masses and no tenderness Assessment & Plan Assessment & Plan (1) Well woman exam: Comment: FARHAD 3 status post LEEP in 2011 Code(s): Z01.419 - Encounter for gynecological examination (general) (routine) without abnormal findings Plan: Co testing done. Counseled the patient about the recommended dietary allowance of 1200 mg of Calcium & 600 IU of vitamin D. Instructions given the patient to schedule next screening Mammogram in 04/19. The patient was referred to GI for screening colonoscopy . The patient was instructed to perform monthly self-breast exams and schedule annual exam in a year. All questions answered and the patient verbalized understanding. Orders: Referrals Gastroenterology Referral Z12.11 - Encounter for screening for malignant neoplasm of colon Coding Level of Care Code New Pt Prev Care 40-64y(99919) Diagnoses Well woman exam Z01.419
[2023-08-06 13:01] VITALS: BP 122/82; BMI 18.6
== END 2023-08-06 15:24 | disposition home or self-care (01) ==
PROVIDERS: PCP Internal Medicine; Visit Provider Obstetrics & Gynecology
DX: Z01.419 Encounter for gynecological examination (general) (routine) without abnormal findings (principal)
CPT/HCPCS: 99386

== ENCOUNTER 2023-09-03 14:05 | Outpatient (AMB) | payer OTHER, SELFPAY ==
--- NOTE | 2023-09-03 14:07 | MHC.OFFVIS ---
Intake Vital Signs 09/03/23 14:08 Height 5 ft 5 in Weight 117 lb 8.102 oz BMI 19.6 BP 102/70 Blood Pressure Location Rt brachial Position Sitting Pulse 77 Pulse Source Pulse Oximeter Temp 97.0 F Temp Source Skin Pulse Oximetry (%) 98 Oxygen Delivery Method Room Air Intake Visit Reasons: Fibromylagia Intake Note: Pt last seen by Yisel on 10/26/22 presents today for follow up. Reports she is scheduled for right shoulder surgery next month with Dr Bennett. Buffer Copper Required: No Accompanied by: Self / Same As Patient Allergies aspirin [ASPIRIN] Allergy (Unknown, Verified 09/03/23 14:11) STOMACH UPSET, irritation baclofen Allergy (Unknown, Verified 09/03/23 14:11) mouth ulcer naproxen Allergy (Unknown, Verified 09/03/23 14:11) mouth sores tramadol [TRAMADOL] Allergy (Unknown, Verified 09/03/23 14:11) DIZZY, N&V, dizziness sumatriptan [From Imitrex] Adverse Reaction (Intermediate, Verified 09/03/23 14:11) Chest Pain Medication List - Last Reconciled 09/03/23 by Rosa John MD acetaminophen (Tylenol) 650 mg (2 x 325 mg) PO Q6H PRN amitriptyline 10 mg PO BEDTIME calcium carbonate-vitamin D3 600 mg-5 mcg (200 unit) (Calcium 600 + D(3)) 1 tab PO DAILY cyclobenzaprine 10 mg PO TID PRN fluticasone propionate 50 mcg/actuation 1 spray intranasal DAILY gabapentin 400 mg PO BID ibuprofen 600 mg PO Q6H PRN mometasone 0.1% 1 appl topical DAILY 2 weeks multivitamin 1 tab PO DAILY psyllium husk (Metamucil) 0.4 grams PO DAILY PRN HPI HPI Comments History of Present Illness Details 62-year-old female with fibromyalgia returns for follow-up. She was last seen by Kelli Amor 10/2022. She is on amitriptyline 10 mg nightly and gabapentin 400 mg Twice daily, well tolerated. States that her fibromyalgia is stable overall. She will be going for right shoulder arthroscopic surgery with Dr. Bennett soon due to right acromioclavicular osteoarthritis, steroid injections no longer provide any relief. She states that over the last 2 months she has been having pain on the outside of her left hip. It is worse when she gets up after sitting down or sits up after lying down for a while. She can not recall any trauma, injury or overuse [facility] Medical History FARHAD III (cervical intraepithelial neoplasia grade III) with severe dysplasia Urinary urgency Urinary frequency Breast cancer screening by mammogram Impaired glucose tolerance Hypercholesterolemia Thyroid nodule Vitamin D deficiency Migraine Left shoulder pain HPV test positive Osteopenia Rotator cuff injury Carpal tunnel syndrome Fibromyalgia Surgical History H/O LEEP Family History Father CVD (cardiovascular disease) Mother Diabetes Hypertension Social History Household Members: Spouse Housing: House Alcohol intake: never Patient Tobacco Use Status: Never used Tobacco e-Cigarette/Vaping Use: Never Used Second Hand Smoke Exposure: No service: No Current occupational status: unemployed Sexual orientation: Straight/Heterosexual Gender identity: Female Cognitive needs: No Hearing needs: No Vision needs: Yes Review of Systems Musc Reports arthralgias Physical Exam Vital Signs: Last Vital Signs Temp 97.0 F 09/03/23 14:08 Pulse 77 09/03/23 14:08 BP 102/70 09/03/23 14:08 Pulse Ox 98 09/03/23 14:08 Oxygen Delivery Method Room Air 09/03/23 14:08 BMI result Body Mass Index 19.6 Const General: cooperative, healthy appearing and comfortable Nutritional Appearance: average body habitus Orientation/consciousness: patient oriented x3 Limitations: no limitations HEENT Head: Yes normocephalic and Yes atraumatic Mouth: moist mucous membranes Resp Effort & Inspection: normal respiratory effort and able to speak in complete sentences GI Inspection: No distended Palpation (GI): Soft to palpation and nontender Skin General skin exam: no rashes or lesions noted Neuro General: patient oriented x3 Extrem Other: Negative straight leg raise test bilaterally Mild left trochanteric bursa area tenderness with negative Alina's test No significant fibromyalgia tender points Assessment & Plan Assessment & Plan (1) Fibromyalgia: Code(s): M79.7 - Fibromyalgia Plan: Symptoms well controlled on amitriptyline 10 mg q.h.s. and gabapentin 400 mg Twice daily. Continue the same. She is having pain on the outer aspect of her left hip, it is mild, I gave her a printout of home exercises to do for greater trochanteric pain syndrome. Follow-up in 6 months Plan I spent 15 minutes reviewing patient's chart, evaluating patient, counseling patient and documenting in the chart Coding Level of Care Code Est Pt Level 3 (96849) Diagnoses Fibromyalgia M79.7
[2023-09-03 14:08] VITALS: BP 102/70; PULSE 77; TEMP 36.1; O2SAT 98; BMI 19.6
== END 2023-09-03 14:24 | disposition home or self-care (01) ==
PROVIDERS: PCP Internal Medicine; Visit Provider Student in an Organized Health Care Education/Training Program
DX: M79.7 Fibromyalgia (principal)
CPT/HCPCS: 99213

== ENCOUNTER → 2023-09-03 14:05 | Outpatient (BNVA) | payer OTHER, SELFPAY | PROVIDERS: PCP Internal Medicine; Visit Provider Student in an Organized Health Care Education/Training Program | DX: M79.7 Fibromyalgia (principal) | CPT/HCPCS: 99212 ==

== ENCOUNTER 2023-09-13 09:58 | Outpatient (AMB) | payer OTHER, SELFPAY ==
[2023-09-13 10:17] VITALS: BMI 19.6
--- NOTE | 2023-09-13 10:17 | A.OFFVIS_ITS ---
Intake Vital Signs 09/13/23 10:17 Height 5 ft 5 in Weight 117 lb 8 oz BMI 19.6 Intake Visit Reasons: Pre Op Rt Shld , distal clavicle exc 09/19/23 NE Intake Note: Juju is a 62 year old right hand dominant female who presents today for a pre op of her right shoulder , distal clavicle excision 09/19/23 NE. Allergies aspirin [ASPIRIN] Allergy (Unknown, Verified 09/13/23 10:20) STOMACH UPSET, irritation baclofen Allergy (Unknown, Verified 09/13/23 10:20) mouth ulcer naproxen Allergy (Unknown, Verified 09/13/23 10:20) mouth sores tramadol [TRAMADOL] Allergy (Unknown, Verified 09/13/23 10:20) DIZZY, N&V, dizziness sumatriptan [From Imitrex] Adverse Reaction (Intermediate, Verified 09/13/23 10:20) Chest Pain HPI Pre Op Rt Shld , distal clavicle exc 09/19/23 NE HPI Details 62-year-old right hand dominant female thomas darby presents in the office today for her preoperative history and physical exam prior to a right shoulder arthroscopy with distal clavicle excision to be performed on 09/19/[address] Bennett. The patient reports no complications with anesthesia. Patient has an allergy history, as follows: -Aspirin; GI upset -Baclofen; mouth ulcer -Naproxen; mouth ulcer -Tramadol; dizzy, nausea and vomiting -Sumatriptan; chest pain Patient is currently taking, as follows: -Acetaminophen 650 mg PO Q6H PRN -Amitriptyline 10 mg PO bedtime -Calcium Carbonate-Vitamin D3 600mg-5mcg PO daily -Cyclobenzaprine 10 mg PO TID PRN -Fluticasone Propionate 50 mcg actuation 1 spray intranasal daily -Gabapentin 400 mg PO BID -Ibuprofen 600 mg PO Q6H PRN -Mometasone 0.1% topical daily -Multivitamin 1 tab PO daily -Psyllium husk (Metamucil) 0.4 grams PO daily PRN Patient has a medical history, as follows: -Osteopenia 06/2017,2017 -Hypercholesterolemia -Migraine -Polyarthralgia -Fibromyalgia -FARHAD 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 Mayorga -History of colonoscopy. [facility] Medical History FARHAD III (cervical intraepithelial neoplasia grade III) with severe dysplasia Urinary urgency Urinary frequency Breast cancer screening by mammogram Impaired glucose tolerance Hypercholesterolemia Thyroid nodule Vitamin D deficiency Migraine Left shoulder pain HPV test positive Osteopenia Rotator cuff injury Carpal tunnel syndrome Fibromyalgia Surgical History H/O LEEP Family History Father CVD (cardiovascular disease) Mother Diabetes Hypertension Social History Household Members: Spouse Housing: House Alcohol intake: never Patient Tobacco Use Status: Never used Tobacco e-Cigarette/Vaping Use: Never Used Second Hand Smoke Exposure: No service: No Current occupational status: unemployed Sexual orientation: Straight/Heterosexual Gender identity: Female Cognitive needs: No Hearing needs: No Vision needs: Yes Review of Systems Const All systems reviewed & are unremarkable except as noted in HPI and below Physical Exam Vital Signs: BMI result Body Mass Index 19.6 Const General: cooperative, healthy appearing, comfortable, no acute distress, well developed, alert and awake Orientation/consciousness: patient oriented x3 HEENT Head: Yes normal to inspection, Yes normocephalic and Yes atraumatic Eyes General: appearance normal, both eyes and all related structures Alignment and Position: alignment normal Conjunctivae: conjunctivae normal EOM: EOMs intact bilaterally Neck Neck: Yes normal visual inspection and Yes no lymphadenopathy Resp Other: No rerpiratory distress Effort & Inspection: normal respiratory effort and able to speak in complete sentences Cardio Other: Palpable radial pulse with no appreciable rythmic abnormalities Jugular venous distension: no JVD Rate: regular rate Peripheral pulses: Peripheral pulses 2+ throughout GI Other: No abdominal distension Inspection: Yes normal to inspection Palpation (GI): Soft to palpation Back/Spine/Pelvis Cervical Spine: normal cervical lordosis and cervical ROM normal Skin General skin exam: no rashes or lesions noted Rashes: no rashes Neuro General: patient oriented x3 Extrem Other: Right Shoulder: TTP: AC joint ROM: 45/90/130/L5 Hawkin's: + Neer: + Empty can: - Lag: - Lift off: - Psych Appearance: grossly normal Mental Status: mental status grossly normal Affect: normal affect Attitude: cooperative Assessment & Plan Assessment & Plan (1) Subacromial impingement of right shoulder: Code(s): M75.41 - Impingement syndrome of right shoulder Plan Ms. Kody Santos is a 62-year-old right hand dominant female who presents in the office today for her preoperative history and physical exam prior to a right shoulder arthroscopy with distal clavicle excision to be performed on 09/19/[address] Bennett. The patient reports no complications with anesthesia. Patient has an allergy history, as follows: -Aspirin; GI upset -Baclofen; mouth ulcer -Naproxen; mouth ulcer -Tramadol; dizzy, nausea and vomiting -Sumatriptan; chest pain Patient is currently taking, as follows: -Acetaminophen 650 mg PO Q6H PRN -Amitriptyline 10 mg PO bedtime -Calcium Carbonate-Vitamin D3 600mg-5mcg PO daily -Cyclobenzaprine 10 mg PO TID PRN -Fluticasone Propionate 50 mcg actuation 1 spray intranasal daily -Gabapentin 400 mg PO BID -Ibuprofen 600 mg PO Q6H PRN -Mometasone 0.1% topical daily -Multivitamin 1 tab PO daily -Psyllium husk (Metamucil) 0.4 grams PO daily PRN Patient has a medical history, as follows: -Osteopenia 06/2017,2017 -Hypercholesterolemia -Migraine -Polyarthralgia -Fibromyalgia -FARHAD 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 Mayorga -History of colonoscopy. I discussed in detail the procedure and what to expect pre and post operatively. We discussed the risks, benefits and alternatives to the surgery as well as the rehabilitation course. The risks; which include, but are not limited to infection, bleeding, nerve injury, ongoing pain, swelling, and stiffness, p erioperative risk of injury to bones and soft tissues, and blood clots. I have answered all questions and with their understanding they have consented to move forward with a right shoulder arthroscopy with distal clavicle excision to be performed on 09/19/[address] Bennett. The patient was educated to take Tylenol instead of Ibuprofen if she needs to take something for pain. The patient was given a hand out of exercises to work on after surgery. The office will work on getting paperwork filled out for the patient and they will fax the paperwork as soon as it is completed. Follow up will be at the post operative appointment on 09/25/2023 at 12:45 pm, or sooner if needed. Post operative medications was sent to the pharmacy, Oxycodone-acetaminophen 5- 325 (Percocet) PO Q4-6H PRN, quantity 42 tabs for 7 days, while in the office today. The patient was instructed that she should obtain the prescription prior to surgery but should not consume until after the procedure; as these should only be taken for post operative pain management. Should the patient take these medications prior to surgery a refill will not be sent to the pharmacy until their scheduled refill date. Medications: New oxycodone-acetaminophen 5-325 mg (Percocet) Partial Fill upon patient request. 1 tab PO Q4-6H PRN 42 tabs 0RF pain 7 days Patient Instructions: Scribed for Christiana Martin PA-C by Mallory Ramirez medical manager, on 09/13/2023 at 10:02 am, EST. Coding Level of Care Code Global (94058) Diagnoses Subacromial impingement of right shoulder M75.41
== END 2023-09-13 11:15 | disposition home or self-care (01) ==
PROVIDERS: PCP Internal Medicine; Visit Provider Physician Assistant
DX: M75.41 Impingement syndrome of right shoulder (principal)
CPT/HCPCS: 99024

== ENCOUNTER → 2023-09-13 09:58 | Outpatient (BNVA) | payer OTHER, SELFPAY | PROVIDERS: PCP Internal Medicine; Visit Provider Physician Assistant | DX: M75.41 Impingement syndrome of right shoulder (principal) | CPT/HCPCS: 99212 ==

== ENCOUNTER 2023-09-19 05:38 | Day surgery (SDC) | payer OTHER, SELFPAY ==
[2023-09-17 09:29] VITALS: BMI 19.5
--- NOTE | 2023-09-18 12:07 | HO.ANESPROP2 ---
Documented by User: Angelique Ojeda NP 09/18/23 12:09 HPI - Anesthesia Eval Consult details Narrative: 62yo F for Right Shoulder Arthroscopy distal clavical excision PMFSH Active Problems Active Problems: All Active Problems (Updated 08/06/23 @ 13:11 by Reginaldo Mayorga MD) Well woman exam (Acute) Subacromial impingement of right shoulder (Acute) Cervical cancer screening (Acute) Respiratory infection (Acute) Internal derangement of right shoulder (Acute) Hair loss (Acute) Osteoarthritis of right shoulder (Acute) Otalgia of right ear (Acute) Epigastric abdominal pain (Acute) Hoarseness of voice (Acute) Constipation (Acute) Annual physical exam (Acute) Overactive bladder (Acute) Shoulder pain (Acute) Annual physical exam (Acute) Osteopenia (Acute) Frequency of micturition (Acute) Neuropathy of left ulnar nerve at wrist (Acute) Impaired glucose tolerance (Acute) Hypercholesterolemia (Acute) Migraine (Acute) Polyarthralgia (Acute) Tendinopathy of left rotator cuff (Acute) Rotator cuff injury (Acute) Fibromyalgia (Acute) Carpal tunnel syndrome (Acute) Past Medical History Medical History FARHAD III (cervical intraepithelial neoplasia grade III) with severe dysplasia Urinary urgency Urinary frequency Breast cancer screening by mammogram Impaired glucose tolerance Hypercholesterolemia Thyroid nodule Vitamin D deficiency Migraine Left shoulder pain HPV test positive Osteopenia Rotator cuff injury Carpal tunnel syndrome Fibromyalgia Family History Family History Father CVD (cardiovascular disease) Mother Diabetes Hypertension Surgical History Surgical History H/O LEEP Social History Social History Household Members: Spouse Housing: House Alcohol intake: never Patient Tobacco Use Status: Never used Tobacco e-Cigarette/Vaping Use: Never Used Second Hand Smoke Exposure: No Use of substances other than those prescribed or required for medical reasons: No Are you DNR?: No Advance Directives: No Advance Directives Information Provided: Yes service: No Current occupational status: unemployed Sexual orientation: Straight/Heterosexual Gender identity: Female Cognitive needs: No Hearing needs: No Vision needs: Yes Meds Allergies Allergy/AdvReac Type Severity Reaction Status Date / Time aspirin [ASPIRIN] Allergy Unknown STOMACH Verified 09/19/23 06:03 UPSET, irritation baclofen Allergy Unknown mouth ulcer Verified 09/19/23 06:03 naproxen Allergy Unknown mouth sores Verified 09/19/23 06:03 tramadol [TRAMADOL] Allergy Unknown DIZZY, Verified 09/19/23 06:03 N&V, dizziness sumatriptan [From Imitrex] AdvReac Intermediate Chest Pain Verified 09/19/23 06:03 Home Medications Medication Instructions Recorded Confirmed Last Taken Type multivitamin 1 tab PO DAILY 06/21/20 09/19/23 09/17/23 History Exam Height,Weight and Vital Signs: Height 5 ft 5 in Weight 53.07 kg Pertinent Lab Results Pertinent Lab Results: Laboratory Tests 03/05/23 10:17 WBC 6.1 Hgb 12.9 Hct 39.2 Plt Count 293 Sodium 142 Potassium 4.3 Chloride 107 Carbon Dioxide 25 BUN 21 H Creatinine 0.72 Assessment and Plan Assessment Anesthesia Assessment: Chart Reviewed Documented by User: Kim Finch MD 09/19/23 08:04 PMFSH Past Medical History Medical History FARHAD III (cervical intraepithelial neoplasia grade III) with severe dysplasia Urinary urgency Urinary frequency Breast cancer screening by mammogram Impaired glucose tolerance Hypercholesterolemia Thyroid nodule Vitamin D deficiency Migraine Left shoulder pain HPV test positive Osteopenia Rotator cuff injury Carpal tunnel syndrome Fibromyalgia Family History Family History Father CVD (cardiovascular disease) Mother Diabetes Hypertension Family history of problems with anesthesia: No Surgical History Surgical History H/O LEEP History of Problems with Anesthesia: No Social History Social History Household Members: Spouse Housing: House Alcohol intake: never Patient Tobacco Use Status: Never used Tobacco e-Cigarette/Vaping Use: Never Used Second Hand Smoke Exposure: No Use of substances other than those prescribed or required for medical reasons: No Are you DNR?: No Advance Directives: No Advance Directives Information Provided: Yes service: No Current occupational status: unemployed Sexual orientation: Straight/Heterosexual Gender identity: Female Cognitive needs: No Hearing needs: No Vision needs: Yes Meds Allergies Allergy/AdvReac Type Severity Reaction Status Date / Time aspirin [ASPIRIN] Allergy Unknown STOMACH Verified 09/19/23 06:03 UPSET, irritation baclofen Allergy Unknown mouth ulcer Verified 09/19/23 06:03 naproxen Allergy Unknown mouth sores Verified 09/19/23 06:03 tramadol [TRAMADOL] Allergy Unknown DIZZY, Verified 09/19/23 06:03 N&V, dizziness sumatriptan [From Imitrex] AdvReac Intermediate Chest Pain Verified 09/19/23 06:03 Home Medications Medication Instructions Recorded Confirmed Last Taken Type multivitamin 1 tab PO DAILY 06/21/20 09/19/23 09/17/23 History Exam Airway Mallampati Class: II TM Dist: >3cm Neck ROM: Full Heart: rrr Lungs: cta Assessment and Plan Assessment Anesthesia Assessment: Anesthesia Plan Discussed Final Anesthetic Review Family History of Problems with Anesthesia: No History of Problems with Anesthesia: No NPO: Yes ASA Class: II Final Preanesthetic Review: No Changes in Pt Med Stat, Meds/Allgs Chart Reviewed, Consent Obtained/Reviewed and Anes Risks/Benef Reviewed Patient Risk: Intermediate Procedure Risk: Intermediate Anesthetic Plan Anesthetic Plan: GA and Regional Block Disposition: Standard PACU
[2023-09-19] VITALS (11 sets, daily range): BP systolic 108–136; BP diastolic 62–76; PULSE 64–80; RESP 16–20; TEMP 36.1–36.2; O2SAT 95–100; BMI 19.3
[2023-09-19] MEDS: Lactated Ringers 1,000 ML 100 ML IVCONT (06:23)
--- NOTE | 2023-09-19 07:32 | MHC.SHP ---
Pre-Procedural Eval Section A Date of Service: 09/19/23 The patient is an INPATIENT: No Changes since office visit: No Cold of Flu in the past 2 weeks, No New Medical Problems, No Changes in Medication and No Patient answered all questions The History & Physical has been completed within 30 days and I have reviewed it.: Yes Section B Chief Complaint: Impingement syndrome of right shoulder Allergies: Allergies Allergy/AdvReac Type Severity Reaction Status Date / Time aspirin [ASPIRIN] Allergy Unknown STOMACH Verified 09/19/23 06:03 UPSET, irritation baclofen Allergy Unknown mouth ulcer Verified 09/19/23 06:03 naproxen Allergy Unknown mouth sores Verified 09/19/23 06:03 tramadol [TRAMADOL] Allergy Unknown DIZZY, Verified 09/19/23 06:03 N&V, dizziness sumatriptan [From Imitrex] AdvReac Intermediate Chest Pain Verified 09/19/23 06:03 Plan I have reviewed the history and physical and performed a pertinent physical examination on my patient. No changes have occurred unless specified. Time Spent With Patient Time: Total time managing care of this patient today ____ minutes.
--- NOTE | 2023-09-19 10:17 | P.BOP_ITS ---
Brief Operative Note Date of Service: 09/19/23 Pre-op diagnosis: left shoulder ACJ OA Post-op diagnosis: other (1) Left ACJ OA 2) Left RTC tear) Procedure: RTC repair with SAD and DCE Implants: Merida and Nephew Helacoil double row x 4 Surgeon: Jas Bennett MD Anesthesia: GETA and regional Was an Candle Maker used for this Procedure?: Yes Candle Maker: Christiana Martin Estimated blood loss (mL): 20 IV fluids (mL): 1,000 Pathology: none sent Condition: stable Disposition: PACU
[2023-09-19] MEDS: Ondansetron ODT 4 MG TAB.RAPDIS TRANSLINGU (12:30)
--- NOTE | 2023-09-20 12:07 | P.OP_ITS ---
Operative Note Operative Note Date of Service: 09/19/23 Narrative: Date of Service: 09/19/23 Pre-op diagnosis: left shoulder ACJ OA Post-op diagnosis: other (1) Left ACJ OA 2) Left RTC tear) Procedure: RTC repair with SAD and DCE Implants: Merida and Nephew Helacoil double row x 4 Surgeon: Jas Bennett MD Anesthesia: GETA and regional Was an Chief Petroleum Engineer used for this Procedure?: Yes Chief Petroleum Engineer: Christiana Martin Estimated blood loss (mL): 20 IV fluids (mL): 1,000 Pathology: none sent Condition: stable Disposition: PACU Procedure in detail: Patient was brought to the operating room and placed the the beach chair position. All bony prominences were well padded and the limb was prepped and draped in standard sterile fashion. A time out was called to identify proper site, proper procedure and proper surgeon. IV antibiotics per weight were administered. I began by making a posterolateral stab incision with a 15 blade. A blunt trochar was placed into the glenohumeral joint and I insufflated the joint with saline and a 30 degree arthroscope was placed. I established an outs ale- in anterior portal just distal to the biceps tendon. I then began my inspection of the glenohumeral joint. The biceps and glenoid labrum were normal. There were no cartilage changes. The subcapularis was intact. The undersurface of the cuff was examined and there was a high grade undersurface tear of the majority of the supraspinatus. I then removed the trochar and entered the subacromial space. A direct lateral portal was then established and I performed a bursectomy. The cuff was then examined. The supraspinatus was thin and easily penetratable with a probe. It was essentially a large full thickness tear of the supraspinatus. The tisse quality was poor but the tear was mobile. I therefore placed 2 medial row anchors and brought the limbs through the torn supraspiatus using a scorpion. The bare area was debrided with a jair and two lateral anchors were placed using a cross compression suture technique. This re-approximated the cuff anatomy anatomically. Once I was satisfied with the repair final images were captured. I then perfromed a 5mm distal clavicle excision with a jair throguh the anterior portal. Care was taken to preserve the superior soft tissues. I then performed a 5mm sub subcromial decompression and final images were captured. I removed all instrumentation. Portals were closed with nylon. Patient was placed in an abduction sling, extubated and brought to the recovery room in stable condition. There were no known complications.
== END 2023-09-19 13:11 | disposition home or self-care (01) ==
LOC: HO.SSS 05:40
PROVIDERS: PCP Internal Medicine; Visit Provider Orthopaedic Surgery
PROC: (CPT 29805; principal; 2023-09-19 07:30)
DX: M75.41 Impingement syndrome of right shoulder (principal); M75.101 Unspecified rotator cuff tear or rupture of right shoulder, not specified as traumatic; M19.011 Primary osteoarthritis, right shoulder
CPT/HCPCS: 29827; 29824; 29826; C1713; J0171; J0665; J0690; J1100; J2250; J2371; J2405; J2704; J3010

== ENCOUNTER 2023-09-25 12:35 | Outpatient (AMB) | payer OTHER, SELFPAY ==
--- NOTE | 2023-09-25 12:37 | MHC.OFFVIS ---
Intake Intake Visit Reasons: PO Rt Shld , distal clavicle exc 09/19/23 NE Intake Note: Juju is a 62 year old female who presents today without a sling for a post op appointment s/p right shoulder , distal clavicle exc 09/19/23. Patient reports she is having some discomfort when performing gentle ROM. Allergies aspirin [ASPIRIN] Allergy (Unknown, Verified 09/19/23 06:03) STOMACH UPSET, irritation baclofen Allergy (Unknown, Verified 09/19/23 06:03) mouth ulcer naproxen Allergy (Unknown, Verified 09/19/23 06:03) mouth sores tramadol [TRAMADOL] Allergy (Unknown, Verified 09/19/23 06:03) DIZZY, N&V, dizziness sumatriptan [From Imitrex] Adverse Reaction (Intermediate, Verified 09/19/23 06:03) Chest Pain HPI PO Rt Shld , distal clavicle exc 09/19/23 NE HPI Details 62-year-old female who presents in the office today 6 days status post right shoulder rotator cuff repair with SAD and DCE, which was performed on 09/19/[address] Bennett. The patient presents in the office today without her sling on. She states she took the sling off due to working on exercises. She reports having some discomfort when performing gentle ROM. She states she has been feeling better. She states last night she slept good but when she woke up she feels a pushing sensation in the right shoulder. [facility] Medical History FARHAD III (cervical intraepithelial neoplasia grade III) with severe dysplasia Urinary urgency Urinary frequency Breast cancer screening by mammogram Impaired glucose tolerance Hypercholesterolemia Thyroid nodule Vitamin D deficiency Migraine Left shoulder pain HPV test positive Osteopenia Rotator cuff injury Carpal tunnel syndrome Fibromyalgia Surgical History H/O LEEP Family History Father CVD (cardiovascular disease) Mother Diabetes Hypertension Social History Household Members: Spouse Housing: House Alcohol intake: never Patient Tobacco Use Status: Never used Tobacco e-Cigarette/Vaping Use: Never Used Second Hand Smoke Exposure: No service: No Current occupational status: unemployed Sexual orientation: Straight/Heterosexual Gender identity: Female Cognitive needs: No Hearing needs: No Vision needs: Yes Review of Systems Const All systems reviewed & are unremarkable except as noted in HPI and below Physical Exam Const General: cooperative, healthy appearing and no acute distress Resp Effort & Inspection: normal respiratory effort and able to speak in complete sentences Cardio Rate: regular rate Peripheral pulses: Peripheral pulses 2+ throughout GI Palpation (GI): Soft to palpation Skin Lesions: no lesions Rashes: no rashes Extrem Other: Right shoulder: Incision sites are clean, dry, and intact. Sutures intact. No surrounding erythema or drainage. No signs of infection. Forward flexion to 80 degrees. Abduction to 45 degrees. External rotation to neutral. NVI. Assessment & Plan Assessment & Plan (1) Subacromial impingement of right shoulder: Comment: Right shoulder rotator cuff repair with SAD and DCE 09/19/2023 Dr. Jas Bennett Code(s): M75.41 - Impingement syndrome of right shoulder (2) S/P right rotator cuff repair: Code(s): Z98.890 - Other specified postprocedural states Plan Ms. Kody Santos is a 62-year-old female who presents in the office today 6 days status post right shoulder rotator cuff repair with SAD and DCE, which was performed on 09/19/[address] Bennett. The patient presents in the office today without her sling on. She states she took the sling off due to working on exercises. She reports having some discomfort when performing gentle ROM. She states she has been feeling better. She states last night she slept good but when she woke up she feels a pushing sensation in the right shoulder. Sutures were removed and steri-stripes applied. I discussed with the patient that she needs to remain in her sling for 6 weeks post-op with the pillow. I educated the patient about motions she should not be performing at this point of her recovery. She was instructed she is able to shower starting tomorrow. She denies having any physical therapy scheduled at this time. The office will reach out to [facility] office to get the patient scheduled for PT. Follow up will be in [address] Bennett, or sooner if needed. Orders: Orders PT Evaluation and Treatment Today M75.41 - Impingement syndrome of right shoulder, Z98.890 - Other specified postprocedural states Patient Instructions: Scribed for Christiana Martin PA-C by Mallory Ramirez manager of medical, on 09/25/2023 at 12:38 pm, EST. Coding Level of Care Code Global (68815) Diagnoses Subacromial impingement of right shoulder M75.41 S/P right rotator cuff repair Z98.890
== END 2023-09-25 13:05 | disposition home or self-care (01) ==
PROVIDERS: PCP Internal Medicine; Visit Provider Physician Assistant
DX: M75.41 Impingement syndrome of right shoulder (principal); Z98.890 Other specified postprocedural states
CPT/HCPCS: 99024

== ENCOUNTER → 2023-09-25 12:35 | Outpatient (BNVA) | payer OTHER, SELFPAY | PROVIDERS: PCP Internal Medicine; Visit Provider Physician Assistant | DX: Z47.89 Encounter for other orthopedic aftercare (principal) | CPT/HCPCS: 99212 ==

== ENCOUNTER 2023-10-25 12:58 | Outpatient (AMB) | payer OTHER, SELFPAY ==
--- NOTE | 2023-10-25 13:11 | MHC.OFFVIS ---
Intake Intake Visit Reasons: PO Rt Shld , distal clavicle exc 09/19/23 NE Intake Note: Juju is a 62 year old right hand dominant female who presents today for a post operative appointment s/p Right Shoulder w/ distal clavicle excision 09/19/23 NE. She was non compliant with sling at her last visit. Patient reports that she is having pain in the shoulder, and takes ibuprofen PRN pain which does provide relief Allergies aspirin [ASPIRIN] Allergy (Unknown, Verified 10/29/23 12:39) STOMACH UPSET, irritation baclofen Allergy (Unknown, Verified 10/29/23 12:39) mouth ulcer naproxen Allergy (Unknown, Verified 10/29/23 12:39) mouth sores tramadol [TRAMADOL] Allergy (Unknown, Verified 10/29/23 12:39) DIZZY, N&V, dizziness sumatriptan [From Imitrex] Adverse Reaction (Intermediate, Verified 10/29/23 12:39) Chest Pain HPI PO Rt Shld , distal clavicle exc 09/19/23 NE HPI Details Juju is a 63 year old woman who presents ~5 weeks S/p right shoulder RTC repair with SAD & DCE. She complains of shoulder pain, which she manages with Ibuprofen. She has been wearing her sling and has started attending PT. She was however non-complaint with sling use at her last appointment with LATA Martin. [facility] Medical History FARHAD III (cervical intraepithelial neoplasia grade III) with severe dysplasia Urinary urgency Urinary frequency Breast cancer screening by mammogram Impaired glucose tolerance Hypercholesterolemia Thyroid nodule Vitamin D deficiency Migraine Left shoulder pain HPV test positive Osteopenia Rotator cuff injury Carpal tunnel syndrome Fibromyalgia Surgical History H/O LEEP Family History Father CVD (cardiovascular disease) Mother Diabetes Hypertension Social History Household Members: Spouse Housing: House Alcohol intake: never Patient Tobacco Use Status: Never used Tobacco e-Cigarette/Vaping Use: Never Used Second Hand Smoke Exposure: No service: No Current occupational status: unemployed Sexual orientation: Straight/Heterosexual Gender identity: Female Cognitive needs: No Hearing needs: No Vision needs: Yes (glasses) Review of Systems Const All systems reviewed & are unremarkable except as noted in HPI and below Physical Exam Const General: no acute distress, alert and awake Orientation/consciousness: patient oriented x3 HEENT Head: Yes normocephalic and Yes atraumatic Eyes EOM: EOMs intact bilaterally Resp Effort & Inspection: normal respiratory effort and able to speak in complete sentences Cardio Jugular venous distension: no JVD Skin General skin exam: turgor normal Rashes: no rashes Neuro General: patient oriented x3 Extrem Other: portal c/d/i SILT RUE ER to 30 deg Psych Appearance: grossly normal Affect: normal affect Attitude: cooperative Assessment & Plan Assessment & Plan (1) Subacromial impingement of right shoulder: Comment: Right shoulder rotator cuff repair with SAD and DCE 09/19/2023 Dr. Jas Bennett Code(s): M75.41 - Impingement syndrome of right shoulder Plan: s/p RTC repair. Continue PT. December d/c sling. Educated about activity. f/u 6 weeks (2) S/P rotator cuff repair: Code(s): Z98.890 - Other specified postprocedural states Plan Prepared for Jas Bennett MD by Tom Macias, lpn or medical assistant, on 10/25/23 at 1:18 PM, EST. Coding Level of Care Code Global (18870) Diagnoses Subacromial impingement of right shoulder M75.41 S/P rotator cuff repair Z98.890
== END 2023-10-25 15:24 | disposition home or self-care (01) ==
PROVIDERS: PCP Internal Medicine; Visit Provider Orthopaedic Surgery
DX: M75.41 Impingement syndrome of right shoulder (principal); Z98.890 Other specified postprocedural states
CPT/HCPCS: 99024

== ENCOUNTER → 2023-10-25 12:58 | Outpatient (BNVA) | payer OTHER, SELFPAY | PROVIDERS: PCP Internal Medicine; Visit Provider Orthopaedic Surgery | DX: Z47.89 Encounter for other orthopedic aftercare (principal); M75.41 Impingement syndrome of right shoulder; Z98.890 Other specified postprocedural states | CPT/HCPCS: 99212 ==

== ENCOUNTER 2023-10-29 12:19 | Outpatient (AMB) | payer OTHER, SELFPAY ==
--- NOTE | 2023-10-29 12:38 | MHC.PC.OV ---
Vital Signs 10/29/23 12:39 Height 5 ft 5 in Weight 115 lb 2 oz BMI 19.2 BP 100/60 Blood Pressure Location Lt brachial Position Sitting Pulse 60 Pulse Source Pulse Oximeter Pulse Oximetry (%) 98 Oxygen Delivery Method Room Air Intake Visit Reasons: Annual exam Intake Note: Patient is here today for a physical. Concern of weight loss and not sleeping well for the last two weeks. Garage Manager Required: No Ict Help Desk Officer: Not Required per policy Accompanied by: Self / Same As Patient Allergies aspirin [ASPIRIN] Allergy (Unknown, Verified 10/29/23 12:39) STOMACH UPSET, irritation baclofen Allergy (Unknown, Verified 10/29/23 12:39) mouth ulcer naproxen Allergy (Unknown, Verified 10/29/23 12:39) mouth sores tramadol [TRAMADOL] Allergy (Unknown, Verified 10/29/23 12:39) DIZZY, N&V, dizziness sumatriptan [From Imitrex] Adverse Reaction (Intermediate, Verified 10/29/23 12:39) Chest Pain Medication List - Last Reconciled 10/29/23 by Asiya Wyman MD acetaminophen (Tylenol) 650 mg (2 x 325 mg) PO Q6H PRN amitriptyline 10 mg PO BEDTIME calcium carbonate-vitamin D3 600 mg-5 mcg (200 unit) (Calcium 600 + D(3)) 1 tab PO DAILY cyclobenzaprine 10 mg PO TID PRN fluticasone propionate 50 mcg/actuation 1 spray intranasal DAILY gabapentin 400 mg PO BID ibuprofen 800 mg PO TID PRN melatonin 10 mg PO BEDTIME PRN mometasone 0.1% 1 appl topical DAILY 2 weeks multivitamin 1 tab PO DAILY Tobacco use date assessed: 10/29/23 Dental Screening Dental Screen Date: 10/29/23 Did you have a dental visit in the last 12 months?: Yes Did you have a dental problem in the last 6 months where you did not have access to dental care?: No Was dental information given to patient?: Patient has dentist HPI Annual exam HPI Details 63-year-old female with a history of fibromyalgia migraine hypercholesterolemia impaired glucose tolerance osteopenia coming in for physical exam. Last seen in March 2023. Patient's last colonoscopy was in January 2014 in due this year mammogram is up-to-date bone density is up-to-date. Patient has been follow-up with orthopedics for the right shoulder status post surgery right rotator cuff repair August 2023 noncompliant with the sling. Patient also follows up with Rheumatology for the fibromyalgia on amitriptyline and gabapentin. dizzy with codeine. noted weight loss PFSH Medical History FARHAD III (cervical intraepithelial neoplasia grade III) with severe dysplasia Urinary urgency Urinary frequency Breast cancer screening by mammogram Impaired glucose tolerance Hypercholesterolemia Thyroid nodule Vitamin D deficiency Migraine Left shoulder pain HPV test positive Osteopenia Rotator cuff injury Carpal tunnel syndrome Fibromyalgia Surgical History H/O LEEP Family History Father CVD (cardiovascular disease) Mother Diabetes Hypertension Social History Household Members: Spouse Housing: House Alcohol intake: never Patient Tobacco Use Status: Never used Tobacco e-Cigarette/Vaping Use: Never Used Second Hand Smoke Exposure: No service: No Current occupational status: unemployed Sexual orientation: Straight/Heterosexual Gender identity: Female Cognitive needs: No Hearing needs: No Vision needs: Yes (glasses) Questionnaire PHQ-9 Over the last 2 weeks, how often have you been bothered by any of the following problems? 1. Little interest or pleasure in doing things: not at all 2. Feeling down, depressed, or hopeless: not at all 3. Trouble falling or staying asleep, or sleeping too much: not at all 4. Feeling tired or having little energy: not at all 5. Poor appetite or overeating: not at all 6. Feeling bad about yourself - or that you are a failure or have let yourself or your family down: not at all 7. Trouble concentrating on things, such as reading the newspaper or watching television: not at all 8. Moving or speaking so slowly that other people could have noticed. Or the opposite - being so fidgety or restless that you have been moving around a lot more than usual: not at all 9. Thoughts that you would be better off or of hurting yourself in some way: not at all Total score: 0 Depression Screening Interpretation: Negative Depression Screening Done: Yes Source: Developed by Drs. Gallito Day, Raquel Pang, José Miguel Schmid and colleagues, with an educational fallon from [employer]. Thrive Questionnaire Date Thrive assessed: 10/29/23 I am a: Patient What is your living situation today?: I have a steady place to live Within the past 12 months, did the food you bought not last and you didn't have the money to get more?: Never true Within the past 12 months, did you worry whether your food would run out before you got money to buy more?: Never true Do you have trouble paying for medicines?: No Do you have trouble getting transportation to medical appointments?: No Do you have trouble paying your heating and electricity bill?: No Do you have trouble taking care of your child, family member or friend?: No Do you have trouble with day-to-day activities such as bathing, preparing meals, shopping, managing finances, etc.?: No Are you currently unemployed and looking for a job?: No Are you interested in more education?: No Currently or been in a relationship where the following occur: no concerns reported THRIVE Score: 0 AUDIT C Alcohol Use Questionnaire (AUDIT-C) 1. How often do you have a drink containing alcohol?: Never Total Score: 0 JONY-7 AMB Questionnaire JONY-7 Date JONY - 7 assessed: 10/29/23 Feeling nervous, anxious, or on edge: 0 = Not at all Not being able to stop or control worryin = Not at all Worrying too much about different things: 0 = Not at all Trouble relaxin = Not at all Being so restless that it is hard to sit still: 0 = Not at all Becoming easily annoyed or irritable: 0 = Not at all Feeling afraid as if something awful might happen: 0 = Not at all Total JONY-7 score (0-4 normal; 5-9 mild; 10-14 moderate; 15-21 severe): 0 Source: Developed by Drs. Gallito Day, José Miguel Bello and colleagues, with an educational fallon from [employer]. Review of Systems Const Denies poor appetite and Denies weakness Eyes Denies no additional complaints ENT Reports Normal hearing present, Denies dizziness, Denies nasal congestion, Denies tinnitus and Denies sore throat Card Denies chest pain, Denies syncope, Denies rapid heart rate and Denies dyspnea Resp Denies cough and Denies dyspnea GI Denies change in stool character, Reports constipation, Denies diarrhea, Denies nausea and Denies vomiting Denies urinary frequency, Denies difficulty voiding and Denies dysuria Neuro Reports Normal hearing present, Denies confusion, Denies dizziness, Denies syncope and Denies weakness Psych Denies confusion Physical exam (Primary Care) Tobacco/Smoking Status: Tobacco use Status Tobacco use date assessed 10/23/22 04/23/23 13:29 Patient Tobacco Use Status Never used Tobacco 09/19/23 09:53 e-Cigarette/Vaping Use Never Used 08/06/23 13:08 Depression Screening Interpretation: Negative Thrive Assessment: Date of Thrive Assessment Date Thrive assessed 10/23/22 04/23/23 13:29 Currently or been in a relationship where the following occur: no concerns reported Const General: No confusion Orientation/consciousness: No confusion Eyes Conjunctivae: conjunctivae normal Resp Auscultation: clear to auscultation bilaterally Cardio Rate: regular rate Rhythm: regular rhythm GI Inspection: Yes normal to inspection Neuro General: No confusion Cranial nerves: Yes Normal hearing present Extrem General: Yes normal to inspection and No edema Results AMB Hemoglobin A1c AMB Hemoglobin A1c 5.8 % Last Edit by VERNELL Alvarez on 10/29/23 12:52 Assessment and Plan Assessment & Plan (1) Annual physical exam: Code(s): Z00.00 - Encounter for general adult medical examination without abnormal findings (2) Subacromial impingement of right shoulder: Comment: Right shoulder rotator cuff repair with SAD and DCE 09/19/2023 Dr. Jas Bennett Code(s): M75.41 - Impingement syndrome of right shoulder Plan: Status post rotator cuff repair August 2023 continuing to follow-up with orthopedics (3) Impaired glucose tolerance: Code(s): R73.02 - Impaired glucose tolerance (oral) Plan: Decrease the amount of carbohydrate intake, pasta, bread, rice and potatoes are all sugar and that is aside from all the sweet stuff, remember that fruits are good but they are Sweet also. February 2023 last blood work (4) Hypercholesterolemia: Code(s): E78.00 - Pure hypercholesterolemia, unspecified Plan: Avoid fried foods, chicken skin, eggs, butter margarine, pastries and meat. Be it pork or beef they have a lot of cholesterol LDL goal of less than 130 and triglyceride of less than 150 February 2023 last blood work (5) Fibromyalgia: Code(s): M79.7 - Fibromyalgia Plan: Patient continues to follow-up with Rheumatology continuing with amitriptyline and gabapentin (6) Colon cancer screening: Code(s): Z12.11 - Encounter for screening for malignant neoplasm of colon Orders: Orders AMB Hemoglobin A1c Today R73.02 - Impaired glucose tolerance (oral) Complete Blood Count Auto Diff Today E78.00 - Pure hypercholesterolemia, unspecified Comprehensive Met. Panel Today E78.00 - Pure hypercholesterolemia, unspecified Free T4 (Free Thyroxine) Today E78.00 - Pure hypercholesterolemia, unspecified Hemoglobin A1c Today E78.00 - Pure hypercholesterolemia, unspecified Vitamin D 25-OH Total Today E78.00 - Pure hypercholesterolemia, unspecified Thyroid Stimulating Hormone Today E78.00 - Pure hypercholesterolemia, unspecified Lipid Panel Today E78.00 - Pure hypercholesterolemia, unspecified Vitamin B12 and Folate Today E78.00 - Pure hypercholesterolemia, unspecified UA CC w/rflx Micro + Cult Today E78.00 - Pure hypercholesterolemia, unspecified, R30.0 - Dysuria Coding Level of Care Code Est Pt Prev Care 40-64y(27640) Diagnoses Annual physical exam Z00.00 Subacromial impingement of right shoulder M75.41 Impaired glucose tolerance R73.02 Hypercholesterolemia E78.00 Fibromyalgia M79.7 Colon cancer screening Z12.11
[2023-10-29 12:39] VITALS: BP 100/60; PULSE 60; O2SAT 98; BMI 19.2
== END 2023-10-29 13:13 | disposition home or self-care (01) ==
PROVIDERS: Visit Provider Internal Medicine
DX: Z00.00 Encounter for general adult medical examination without abnormal findings (principal); M75.41 Impingement syndrome of right shoulder; R73.02 Impaired glucose tolerance (oral); E78.00 Pure hypercholesterolemia, unspecified; M79.7 Fibromyalgia; Z12.11 Encounter for screening for malignant neoplasm of colon
CPT/HCPCS: 83036; 99396

== ENCOUNTER 2023-12-06 15:00 | Outpatient (RCR) | payer OTHER, SELFPAY ==
--- NOTE | 2023-10-01 09:47 | MHC.PT.EP ---
[facility] [place] [facility] [place] Office [address] Wanda Talbert [address] [phone] F: [phone] F: [phone] F: [phone] F: [phone] Physical Therapy Plan of Care Date of Evaluation: 10/01/23 Date of Surgery: 09/19/2023 Diagnosis: s/p R RC repair 09/19/2023 Assessment: Patient is a 62 year old female presenting to PT s/p R RC repair 09/19/2023. She presents today with impairments in pain, ROM, strength, posture, protocol limitations. Pt's current occupation is none, with baseline physical activities including reaching, lifting, ADLs. 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 Clinical presentation today is most consistent with signs and sx associated with s/p R RC repair 09/19/2023 and pt will benefit from skilled PT 2 week x 20 weeks to address the following problems and impairments noted upon evaluation: pain, ROM, strength, posture, protocol limitations. These problems limit the patient with the following functional activities: reaching, lifting, ADLs. The prescribed treatment plan of care is medically necessary. Co-morbidities of fibromyalgia were identified and taken into considerations of plan of care. Pt was educated on HEP, role of PT, prognosis, POC. Frequency and Duration: The patient will be seen 2 x week x 20 weeks Short Term Goals: Pt will be compliant with wearing her sling in 1 visit. Pt will demonstrate full elbow AROM in 3 weeks. Pt will demonstrate increased R shoulder ER to 45 deg at 45 deg abd in 4 weeks. Pt will demonstrate full PROM in 6 weeks. Long-Term Goals: Pt will demonstrate full AROM by 12 weeks for improved ability to reach. Pt will demonstrate at least 4-/5 strength in 16 weeks for improved ability to complete ADLs. Pt will demonstrate at least 4/5 strength in 20 weeks for prepare to return to PLOF. Treatment Plan: Modalities to reduce pain, spasms and effusion. Manual therapy to restore motion and function. Therapeutic exercise to improve strength and flexibility. Neuromuscular re-education for posture and balance. Therapeutic activities to return to functional activities of daily living. Electronically signed by: Yennifer Maier, PT, DPT, ATC Please sign and return to therapist. Thank you for your referral.
--- NOTE | 2024-01-04 07:36 | MHC.PT.DC ---
[facility] [place] Office [place] Office [place] Office [address] Tal[address] [phone] F: [phone] F: [phone] F: [phone] F: [phone] Physical Therapy Discharge Report Diagnosis: s/p R RC repair 09/19/2023 Date of Surgery: 09/19/2023 Date of Evaluation: 10/01/23 Date of Discharge: 01/04/24 Treatments to Date: 12 Cancellations to Date: 7 No Shows to Date: 0 Discharge Status: Patient Elected to Stop Discharge Summary: Pt has not returned to skilled PT in >30 days and therefore to be d/c per our policy. Electronically signed by: Yennifer Maier, PT, DPT, ATC Please sign and return to therapist. Thank you for your referral.
== END 2024-01-04 07:37 | disposition home or self-care (01) ==
LOC: HO.PTCHIC 15:00
PROVIDERS: PCP Internal Medicine; Visit Provider Physician Assistant
DX: M75.41 Impingement syndrome of right shoulder (principal); Z98.890 Other specified postprocedural states
CPT/HCPCS: 97110; 97140; 97161

== ENCOUNTER 2023-12-17 14:06 | Outpatient (AMB) | payer OTHER, SELFPAY ==
--- NOTE | 2023-12-17 14:13 | A.OFFVIS_ITS ---
Intake Visit Reasons: PO Rt Shld , distal clavicle exc 09/19/23 NE Allergies aspirin [ASPIRIN] Allergy (Unknown, Verified 12/17/23 14:13) STOMACH UPSET, irritation baclofen Allergy (Unknown, Verified 12/17/23 14:13) mouth ulcer naproxen Allergy (Unknown, Verified 12/17/23 14:13) mouth sores tramadol [TRAMADOL] Allergy (Unknown, Verified 12/17/23 14:13) DIZZY, N&V, dizziness sumatriptan [From Imitrex] Adverse Reaction (Intermediate, Verified 12/17/23 14:13) Chest Pain HPI HPI PO Rt Shld , distal clavicle exc 09/19/23 NE: Details: Juju is a 62 year old right hand dominant female who presents today for a post operative appointment s/p Right Shoulder w/ distal clavicle excision 09/19/23 NE. Patient reports that her pain is improving but is still felt throughout the day. Her ROM is improving. [facility] Medical History FARHAD III (cervical intraepithelial neoplasia grade III) with severe dysplasia Urinary urgency Urinary frequency Breast cancer screening by mammogram Impaired glucose tolerance Hypercholesterolemia Thyroid nodule Vitamin D deficiency Migraine Left shoulder pain HPV test positive Osteopenia Rotator cuff injury Carpal tunnel syndrome Fibromyalgia Surgical History H/O LEEP Family History Father CVD (cardiovascular disease) Mother Diabetes Hypertension Social History Household Members: Spouse Housing: House Alcohol intake: never Patient Tobacco Use Status: Never used Tobacco e-Cigarette/Vaping Use: Never Used Second Hand Smoke Exposure: No service: No Current occupational status: unemployed Sexual orientation: Straight/Heterosexual Gender identity: Female Cognitive needs: No Hearing needs: No Vision needs: Yes (glasses) Physical Exam Extrem Other: 30/90/120/S1 4+/5 EC No pain with active motion Assessment & Plan Assessment & Plan (1) S/P rotator cuff repair: Code(s): Z98.890 - Other specified postprocedural states Category: Surgical Plan: Doing well s/p RTC repair. Continue HEP. May follow up in 3 months Coding Level of Care Code Global (98434) Diagnoses S/P rotator cuff repair Z98.890
== END 2023-12-17 14:44 | disposition home or self-care (01) ==
LOC: HO.HOS 14:08
PROVIDERS: PCP Internal Medicine; Visit Provider Orthopaedic Surgery
DX: Z98.890 Other specified postprocedural states (principal)
CPT/HCPCS: 99024

== ENCOUNTER → 2023-12-17 14:08 | Outpatient (BNVA) | payer OTHER, SELFPAY | PROVIDERS: PCP Internal Medicine; Visit Provider Orthopaedic Surgery | DX: Z47.81 Encounter for orthopedic aftercare following surgical amputation (principal); Z98.890 Other specified postprocedural states | CPT/HCPCS: 99212 ==

== ENCOUNTER 2023-12-27 09:18 | Outpatient (REF) | payer OTHER, SELFPAY ==
[2023-12-27 09:39] LABS: Basophils Percent Auto 0.6 % (0-2); Eosinophils Absolute Auto 0.1 X10*3/uL (0.0-0.4); Hematocrit 37.6 % (37.0-47.0); Hemoglobin 12.8 g/dl (12.0-16.0); Imm Gran Abs Auto 0.01 X10*3/uL (0.00-0.03); Imm Gran Pct Auto 0.2 % (0.0-0.4); Lymphocytes Absolute Auto 3.3 X10*3/uL (1.2-4.9); Lymphocytes Percent Auto 49.8 % (20-40); MANUAL DIFF FLAG NO; Mean Corpuscular Hemoglobin 31.1 pg (27.0-33.0); Mean Corpuscular Volume 91.3 fL (80.0-98.0); Mean Platelet Volume 9.9 fL (9.4-12.3); Monocytes Absolute Auto 0.5 X10*3/uL (0.1-1.2); Neutrophils Absolute Auto 2.6 x10*3/uL (2.0-8.3); Neutrophils Percent Auto 39.4 % (45-73); Platelet Count 259 X10*3/uL (160-400); Red Blood Count 4.12 X10*6/uL (4.20-5.50); Red Cell Distribution Width 12.3 % (11.0-16.0); White Blood Count 6.6 X10*3/uL (4.8-10.8)
[2023-12-27 10:12] LABS: Estimated Average Glucose 123 mg/dL; Hemoglobin A1c % 5.9 % (<6.0)
[2023-12-27 10:22] LABS: Alanine Aminotransferase 14 U/L (0-31); Albumin Level 4.1 g/dL (3.5-5.0); Alkaline Phosphatase 35 U/L (39-117); Anion Gap 13 (12-20); Aspartate Amino Transferase 22 U/L (5-31); Bilirubin Total 0.6 mg/dL (0.0-1.0); Blood Urea Nitrogen 18 mg/dL (9-16); Calcium 10.3 mg/dL (8.4-10.2); Carbon Dioxide 28 mmol/L (22-29); Chloride 104 mmol/L (96-108); Cholesterol 204 mg/dL (<200); Estimated Glomerular Filt Rate > 60; Glucose Random 93 mg/dL (60-115); HDL Cholesterol 62 mg/dL (>40); LDL Cholesterol Calculated 123 mg/dL (<100); Potassium 3.9 mmol/L (3.3-5.1); Sodium 141 mmol/L (135-145); Total Protein 7.6 g/dL (6.5-8.0); Triglycerides 96 mg/dL (<150)
[2023-12-27 10:37] LABS: Free T4 (Free Thyroxine) 1.11 ng/dL (0.71-1.85); Thyroid Stimulating Hormone 2.26 uIU/mL (0.32-4.0); Vitamin D 25-OH Total 37.2 ng/mL (>30)
[2023-12-27 11:20] LABS: Appearance Urine Clear; Color Urine Yellow; Glucose Urine UA Negative (Negative); Leukocyte Esterase Urine Moderate (2+) (Negative); Nitrite Urine Negative (Negative); UMIC TRIGGER UACC YES; Urine Blood Negative (Negative); Urine Ketones Negative (Negative); Urine Protein Negative (Neg-Trace)
[2023-12-27 11:47] LABS: Folate 18.6 ng/mL (> or = 4.0); Vitamin B12 794 pg/mL (200-900)
[2023-12-27 11:49] LABS: Bacteria Urine 1+ (None Seen); Hyaline Casts Urine 0-2 /LPF (0-2); RBC Urine 0-2 /HPF (0-2); UACC Culture Trigger YES
== END 2023-12-27 09:19 | disposition home or self-care (01) ==
LOC: HO.LAB 09:18
PROVIDERS: PCP Internal Medicine; Visit Provider Internal Medicine
DX: E78.00 Pure hypercholesterolemia, unspecified (principal); R82.90 Unspecified abnormal findings in urine
CPT/HCPCS: 36415; 80053; 80061; 81001; 81003; 82306; 82607; 82746; 83036; 84439; 84443; 85025; 87086

== ENCOUNTER 2024-03-03 14:10 | Outpatient (AMB) | payer OTHER, SELFPAY ==
--- NOTE | 2024-03-03 14:21 | A.OFFVIS_ITS ---
Vital Signs 03/03/24 14:24 Height 5 ft 5 in Weight 117 lb 8.102 oz BMI 19.6 BP 105/60 Blood Pressure Location Lt brachial Position Sitting Respiration 16 Pulse 76 Pulse Source Pulse Oximeter Pulse Oximetry (%) 95 Oxygen Delivery Method Room Air Intake Visit Reasons: FMS Intake Note: Patient presents for FMS. Allergies aspirin [ASPIRIN] Allergy (Unknown, Verified 03/03/24 14:24) STOMACH UPSET, irritation baclofen Allergy (Unknown, Verified 03/03/24 14:24) mouth ulcer naproxen Allergy (Unknown, Verified 03/03/24 14:24) mouth sores tramadol [TRAMADOL] Allergy (Unknown, Verified 03/03/24 14:24) DIZZY, N&V, dizziness sumatriptan [From Imitrex] Adverse Reaction (Intermediate, Verified 03/03/24 14:24) Chest Pain Medication List - Last Reconciled 03/03/24 by Rosa John MD acetaminophen (Tylenol) 650 mg (2 x 325 mg) PO Q6H PRN amitriptyline 10 mg PO BEDTIME calcium carbonate-vitamin D3 600 mg-5 mcg (200 unit) (Calcium 600 + D(3)) 1 tab PO DAILY cyclobenzaprine 10 mg PO TID PRN fluticasone propionate 50 mcg/actuation 1 spray intranasal DAILY gabapentin 400 mg PO BID ibuprofen 800 mg PO TID PRN melatonin 10 mg PO BEDTIME PRN mometasone 0.1% 1 appl topical DAILY 2 weeks multivitamin 1 tab PO DAILY HPI Comments Details: 63-year-old female with fibromyalgia returns for follow-up. She was last seen 08/2023. She is on amitriptyline 10 mg nightly and gabapentin 400 mg Twice daily, well tolerated. States that her fibromyalgia is stable overall. She gets mild intermittent pain behind her right shoulder. Uses cyclobenzaprine sparingly when the pain is more severe. [facility] Medical History FARHAD III (cervical intraepithelial neoplasia grade III) with severe dysplasia Urinary urgency Urinary frequency Breast cancer screening by mammogram Impaired glucose tolerance Hypercholesterolemia Thyroid nodule Vitamin D deficiency Migraine Left shoulder pain HPV test positive Osteopenia Rotator cuff injury Carpal tunnel syndrome Fibromyalgia Surgical History H/O LEEP Family History Father CVD (cardiovascular disease) Mother Diabetes Hypertension Social History Household Members: Spouse Housing: House Alcohol intake: never Patient Tobacco Use Status: Never used Tobacco e-Cigarette/Vaping Use: Never Used Second Hand Smoke Exposure: No service: No Current occupational status: unemployed Sexual orientation: Straight/Heterosexual Gender identity: Female Cognitive needs: No Hearing needs: No Vision needs: Yes (glasses) Review of Systems Musc Reports arthralgias Physical Exam Vital Signs: Last Vital Signs Pulse 76 03/03/24 14:24 Resp 16 03/03/24 14:24 BP 105/60 03/03/24 14:24 Pulse Ox 95 03/03/24 14:24 Oxygen Delivery Method Room Air 03/03/24 14:24 BMI result Body Mass Index 19.6 Const General: cooperative, healthy appearing and comfortable Nutritional Appearance: average body habitus Orientation/consciousness: patient oriented x3 Limitations: no limitations HEENT Head: Yes normocephalic and Yes atraumatic Mouth: moist mucous membranes Resp Effort & Inspection: normal respiratory effort and able to speak in complete sentences GI Inspection: No distended Palpation (GI): Soft to palpation and nontender Skin General skin exam: no rashes or lesions noted Neuro General: patient oriented x3 Extrem Other: Negative straight leg raise test bilaterally No significant fibromyalgia tender points Normal range of motion of both shoulders, some discomfort with full range of motion of right shoulder Assessment & Plan Assessment & Plan (1) Fibromyalgia: Code(s): M79.7 - Fibromyalgia Category: Medical Plan: Symptoms well controlled on amitriptyline 10 mg q.h.s. and gabapentin 400 mg Twice daily. Continue the same. Follow-up in 6 months Plan I spent 15 minutes reviewing patient's chart, evaluating patient, counseling patient and documenting in the chart Coding Level of Care Code Est Pt Level 3 (67645) Diagnoses Fibromyalgia M79.7
[2024-03-03 14:24] VITALS: BP 105/60; PULSE 76; RESP 16; O2SAT 95; BMI 19.6
== END 2024-03-03 14:47 | disposition home or self-care (01) ==
PROVIDERS: PCP Internal Medicine; Visit Provider Student in an Organized Health Care Education/Training Program
DX: M79.7 Fibromyalgia (principal)
CPT/HCPCS: 99213

== ENCOUNTER → 2024-03-03 14:10 | Outpatient (BNVA) | payer OTHER, SELFPAY | PROVIDERS: PCP Internal Medicine; Visit Provider Student in an Organized Health Care Education/Training Program | DX: M79.7 Fibromyalgia (principal); Z79.899 Other long term (current) drug therapy | CPT/HCPCS: 99212 ==

== ENCOUNTER 2024-04-15 12:36 | Outpatient (REF) | payer OTHER, SELFPAY ==
--- NOTE | ~2024-04-15 | MM_ITS ---
EXAMINATION: MM SCREENING DIGITAL BREAST TOMOSYNTHESIS, BILATERAL CLINICAL INFORMATION: Screening. Asymptomatic. COMPARISON: Mammography: This study is compared with prior exams dating back to TECHNIQUE: Digital breast tomosynthesis is performed in both the craniocaudal and mediolateral oblique views along with computer-aided detection (CAD). Synthesized 2D images are generated from the tomosynthesis. FINDINGS: The breasts are heterogeneously dense, which may obscure small masses (ACR BI-RADS breast composition Category c). There are no significant masses, abnormal calcifications, or other abnormalities. MM/MM tomosynthesis screening BI IMPRESSION: No mammographic evidence of malignancy. ASSESSMENT: BI-RADS BI-RADS 1 - Negative RECOMMENDATION: Routine annual mammography screening. 1 year F/U This examination should not preclude the clinical evaluation of a suspicious palpable abnormality. This patient's information was entered into a reminder system with a target due date for their next mammogram. Electronically signed by: Haley Ruelas DO 05/14/2024 05:00 PM EDT
== END 2024-04-15 12:37 | disposition home or self-care (01) ==
LOC: HO.MAMMO 12:36
PROVIDERS: PCP Internal Medicine; Visit Provider Internal Medicine
DX: Z12.31 Encounter for screening mammogram for malignant neoplasm of breast (principal)
CPT/HCPCS: 77063; 77067

== ENCOUNTER → 2024-04-15 12:45 | Outpatient (BNV) | payer OTHER, SELFPAY | PROVIDERS: PCP Internal Medicine; Visit Provider Internal Medicine | DX: Z12.31 Encounter for screening mammogram for malignant neoplasm of breast (principal) | CPT/HCPCS: 77063; 77067 ==

== ENCOUNTER 2024-09-08 14:01 | Outpatient (AMB) | payer OTHER, SELFPAY ==
--- NOTE | 2024-09-08 14:04 | MHC.OFFVIS ---
Vital Signs 09/08/24 14:05 Height 5 ft 5 in Weight 122 lb 2.177 oz BMI 20.3 BP 108/66 Blood Pressure Location Lt brachial Position Sitting Pulse 70 Pulse Source Pulse Oximeter Pulse Oximetry (%) 99 Oxygen Delivery Method Room Air Intake Visit Reasons: FMS Intake Note: Patient last seen by Doctor Rosa John on 03/03/24. Presents today for FMS follow up. Allergies aspirin [ASPIRIN] Allergy (Unknown, Verified 09/08/24 14:07) STOMACH UPSET, irritation baclofen Allergy (Unknown, Verified 09/08/24 14:07) mouth ulcer naproxen Allergy (Unknown, Verified 09/08/24 14:07) mouth sores tramadol [TRAMADOL] Allergy (Unknown, Verified 09/08/24 14:07) DIZZY, N&V, dizziness sumatriptan [From Imitrex] Adverse Reaction (Intermediate, Verified 09/08/24 14:07) Chest Pain Medication List - Last Reconciled 09/08/24 by Rosa John MD acetaminophen (Tylenol) 650 mg (2 x 325 mg) PO Q6H PRN amitriptyline 10 mg PO BEDTIME calcium carbonate-vitamin D3 600 mg-5 mcg (200 unit) (Calcium 600 + D(3)) 1 tab PO DAILY cyclobenzaprine 10 mg PO TID PRN fluticasone propionate 50 mcg/actuation 1 spray intranasal DAILY gabapentin 400 mg PO BID ibuprofen 800 mg PO TID PRN melatonin 10 mg PO BEDTIME PRN mometasone 0.1% 1 appl topical DAILY 2 weeks multivitamin 1 tab PO DAILY polyethylene glycol 3350 (Miralax) 17 grams PO DAILY HPI Comments Details: 63-year-old female with fibromyalgia returns for follow-up. She was last seen 02/2024. She is on amitriptyline 10 mg nightly and gabapentin 400 mg Twice daily, well tolerated. States that her fibromyalgia is stable overall. She has been having pain in her left wrist. This has been going on for the last 3 months. She believes it is due to housework. She has been applying Aspercreme with little relief. FORMERLY [facility], [facility] Medical History FARHAD III (cervical intraepithelial neoplasia grade III) with severe dysplasia Urinary urgency Urinary frequency Breast cancer screening by mammogram Impaired glucose tolerance Hypercholesterolemia Thyroid nodule Vitamin D deficiency Migraine Left shoulder pain HPV test positive Osteopenia Rotator cuff injury Carpal tunnel syndrome Fibromyalgia Surgical History H/O LEEP Family History Father CVD (cardiovascular disease) Mother Diabetes Hypertension Social History Household Members: Spouse Housing: House Alcohol intake: never Patient Tobacco Use Status: Never used Tobacco e-Cigarette/Vaping Use: Never Used Second Hand Smoke Exposure: No service: No Current occupational status: unemployed Sexual orientation: Straight/Heterosexual Gender identity: Female Cognitive needs: No Hearing needs: No Vision needs: Yes (glasses) Physical Exam Vital Signs: Last Vital Signs Pulse 70 09/08/24 14:05 BP 108/66 09/08/24 14:05 Pulse Ox 99 09/08/24 14:05 Oxygen Delivery Method Room Air 09/08/24 14:05 BMI result Body Mass Index 20.3 Const General: cooperative, healthy appearing and comfortable Nutritional Appearance: average body habitus Orientation/consciousness: patient oriented x3 Limitations: no limitations HEENT Head: Yes normocephalic and Yes atraumatic Mouth: moist mucous membranes Resp Effort & Inspection: normal respiratory effort and able to speak in complete sentences GI Inspection: No distended Palpation (GI): Soft to palpation and nontender Skin General skin exam: no rashes or lesions noted Neuro General: patient oriented x3 Extrem Other: Negative straight leg raise test bilaterally No significant fibromyalgia tender points Left 1st CMC joint tenderness Negative Ubaldo's test bilaterally Assessment & Plan Assessment & Plan (1) Fibromyalgia: Code(s): M79.7 - Fibromyalgia Category: Medical Plan: Symptoms well controlled on amitriptyline 10 mg q.h.s. and gabapentin 400 mg Twice daily. Continue the same. Follow-up in 6 months (2) Osteoarthritis of first carpometacarpal joint of left hand: Code(s): M18.12 - Unilateral primary osteoarthritis of first carpometacarpal joint, left hand Category: Medical Qualifiers: Osteoarthritis type: primary Qualified Code(s): M18.12 - Unilateral primary osteoarthritis of first carpometacarpal joint, left hand Plan: OTC voltaren gel trial Plan I spent 15 minutes reviewing patient's chart, evaluating patient, counseling patient and documenting in the chart Coding Level of Care Code Est Pt Level 3 (00197) Diagnoses Fibromyalgia M79.7 Primary osteoarthritis of first carpometacarpal joint of left hand M18.12 Osteoarthritis type: primary
[2024-09-08 14:05] VITALS: BP 108/66; PULSE 70; O2SAT 99; BMI 20.3
== END 2024-09-08 14:27 | disposition home or self-care (01) ==
PROVIDERS: PCP Internal Medicine; Visit Provider Student in an Organized Health Care Education/Training Program
DX: M79.7 Fibromyalgia (principal); M18.12 Unilateral primary osteoarthritis of first carpometacarpal joint, left hand
CPT/HCPCS: 99213

== ENCOUNTER → 2024-09-08 14:01 | Outpatient (BNVA) | payer OTHER, SELFPAY | PROVIDERS: PCP Internal Medicine; Visit Provider Student in an Organized Health Care Education/Training Program | DX: M79.7 Fibromyalgia (principal); M18.12 Unilateral primary osteoarthritis of first carpometacarpal joint, left hand | CPT/HCPCS: 99212 ==

== ENCOUNTER 2024-11-03 13:34 | Outpatient (AMB) | payer OTHER, SELFPAY ==
--- NOTE | 2024-11-03 13:39 | A.OFFPC_ITS ---
Vital Signs 11/03/24 13:45 Height 5 ft 5 in Weight 115 lb BMI 19.1 BP 120/60 Blood Pressure Location Lt brachial Position Sitting Pulse 73 Pulse Source Pulse Oximeter Temp 97.1 F Temp Source Temporal Artery Scan Pulse Oximetry (%) 95 Oxygen Delivery Method Room Air Intake Visit Reasons: annual exam Intake Note: Patient is here today for a physical. 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 Required: No Event Sales Manager: Not Required per policy Accompanied by: Self / Same As Patient Allergies aspirin [ASPIRIN] Allergy (Unknown, Verified 11/03/24 13:41) STOMACH UPSET, irritation baclofen Allergy (Unknown, Verified 11/03/24 13:41) mouth ulcer naproxen Allergy (Unknown, Verified 11/03/24 13:41) mouth sores tramadol [TRAMADOL] Allergy (Unknown, Verified 11/03/24 13:41) DIZZY, N&V, dizziness sumatriptan [From Imitrex] Adverse Reaction (Intermediate, Verified 11/03/24 13:41) Chest Pain Medication List - Last Reconciled 11/03/24 by Asiya Wyman MD acetaminophen (Tylenol) 650 mg (2 x 325 mg) PO Q6H PRN amitriptyline 10 mg PO BEDTIME calcium carbonate-vitamin D3 600 mg-5 mcg (200 unit) (Calcium 600 + D(3)) 1 tab PO DAILY fluticasone propionate 50 mcg/actuation 1 spray intranasal DAILY gabapentin 400 mg PO BID mometasone 0.1% 1 appl topical DAILY 2 weeks multivitamin 1 tab PO DAILY omeprazole 20 mg PO DAILY polyethylene glycol 3350 (Miralax) 17 grams PO DAILY Tobacco use date assessed: 11/03/24 Dental Screening Dental Screen Date: 11/03/24 Did you have a dental visit in the last 12 months?: Yes Did you have a dental problem in the last 6 months where you did not have access to dental care?: No Was dental information given to patient?: Patient has dentist FORMERLY [facility] Medical History FARHAD III (cervical intraepithelial neoplasia grade III) with severe dysplasia Urinary urgency Urinary frequency Breast cancer screening by mammogram Impaired glucose tolerance Hypercholesterolemia Thyroid nodule Vitamin D deficiency Migraine Left shoulder pain HPV test positive Osteopenia Rotator cuff injury Carpal tunnel syndrome Fibromyalgia Surgical History H/O LEELucina Family History (Updated 11/03/24 @ 13:58 by Asiya Wyman MD) Father CVD (cardiovascular disease) Mother Diabetes Hypertension CVA (cerebral vascular accident) Social History Household Members: Spouse Housing: House Alcohol intake: never Patient Tobacco Use Status: Never used Tobacco e-Cigarette/Vaping Use: Never Used Second Hand Smoke Exposure: No service: No Current occupational status: unemployed Sexual orientation: Straight/Heterosexual Gender identity: Female Cognitive needs: No Hearing needs: No Vision needs: Yes (glasses) Questionnaire PHQ-9 Over the last 2 weeks, how often have you been bothered by any of the following problems? 1. Little interest or pleasure in doing things: nearly every day 2. Feeling down, depressed, or hopeless: nearly every day 3. Trouble falling or staying asleep, or sleeping too much: more than half the days 4. Feeling tired or having little energy: several days 5. Poor appetite or overeating: not at all 6. Feeling bad about yourself - or that you are a failure or have let yourself or your family down: not at all 7. Trouble concentrating on things, such as reading the newspaper or watching television: not at all 8. Moving or speaking so slowly that other people could have noticed. Or the opposite - being so fidgety or restless that you have been moving around a lot more than usual: not at all 9. Thoughts that you would be better off or of hurting yourself in some way: not at all Total score: 9 Depression Screening Interpretation: Positive Depression Screening Done: Yes Source: Developed by Drs. Gallito Day, Raquel Pang, José Miguel Schmid and colleagues, with an educational fallon from [employer]. Thrive Questionnaire Date Thrive assessed: 10/27/24 I am a: Patient What is your living situation today?: I have a steady place to live Within the past 12 months, did the food you bought not last and you didn't have the money to get more?: Never true Within the past 12 months, did you worry whether your food would run out before you got money to buy more?: Never true Do you have trouble paying for medicines?: No Do you have trouble getting transportation to medical appointments?: No Do you have trouble paying your heating and electricity bill?: No Do you have trouble taking care of your child, family member or friend?: No Do you have trouble with day-to-day activities such as bathing, preparing meals, shopping, managing finances, etc.?: No Are you currently unemployed and looking for a job?: No Are you interested in more education?: No Please select the resources that you would like help with: None Currently or been in a relationship where the following occur: No concerns reported THRIVE Score: 0 AUDIT C Alcohol Use Questionnaire (AUDIT-C) 1. How often do you have a drink containing alcohol?: Never Total Score: 0 JONY-7 AMB Questionnaire JONY-7 Date JONY - 7 assessed: 11/03/24 Feeling nervous, anxious, or on edge: 0 = Not at all Not being able to stop or control worryin = Not at all Worrying too much about different things: 0 = Not at all Trouble relaxin = Not at all Being so restless that it is hard to sit still: 0 = Not at all Becoming easily annoyed or irritable: 0 = Not at all Feeling afraid as if something awful might happen: 0 = Not at all Total JONY-7 score (0-4 normal; 5-9 mild; 10-14 moderate; 15-21 severe): 0 Source: Developed by Drs. Gallito Day, Raquel Pang, José Miguel Schmid and colleagues, with an educational fallon from [employer]. Review of Systems Const Denies poor appetite and Denies weakness Eyes Denies no additional complaints ENT Reports Normal hearing present, Denies dizziness, Denies nasal congestion, Denies tinnitus and Denies sore throat Card Denies chest pain, Denies syncope, Denies rapid heart rate and Denies dyspnea Resp Denies cough and Denies dyspnea GI Denies change in stool character, Reports constipation, Denies diarrhea, Denies nausea and Denies vomiting Denies urinary frequency, Denies difficulty voiding and Denies dysuria Neuro Reports Normal hearing present, Denies confusion, Denies dizziness, Denies syncope and Denies weakness Psych Denies confusion Physical exam (Primary Care) Vital Signs: Last Vital Signs Temp 97.1 F 11/03/24 13:45 Pulse 73 11/03/24 13:45 BP 120/60 11/03/24 13:45 Pulse Ox 95 11/03/24 13:45 Oxygen Delivery Method Room Air 11/03/24 13:45 BMI result Body Mass Index 19.1 Tobacco/Smoking Status: Tobacco use Status Tobacco use date assessed 11/03/24 11/03/24 13:50 Patient Tobacco Use Status Never used Tobacco 11/03/24 13:50 e-Cigarette/Vaping Use Never Used 11/03/24 13:50 PHQ-9: PHQ-9 Score PHQ-9: Total score 9 11/03/24 13:50 Depression Screening Interpretation: Positive Thrive Assessment: Date of Thrive Assessment Date Thrive assessed 10/27/24 11/03/24 13:50 Currently or been in a relationship where the following occur: No concerns reported Const General: No confusion Orientation/consciousness: No confusion HENMT Head: Yes normocephalic Ears: external ears normal and TM's normal bilaterally Face and sinus: Yes normal facial exam Mouth: moist mucous membranes Throat: Yes tonsils normal Eyes Conjunctivae: conjunctivae normal Pupils: Equal, round and reactive pupils present and Pupil accommodation reflex normal Direct Ophthalmoscopy: normal light reflex Neck Neck: No lymphadenopathy Thyroid: Thyroid normal Chest Chest palpation & inspection: normal inspection of the chest Resp Effort & Inspection: normal respiratory effort and no audible wheezes Auscultation: clear to auscultation bilaterally, no crackles, no wheezes and lung sounds not diminished Cardio Rate: regular rate Rhythm: regular rhythm Peripheral pulses: radial pulses present and dorsalis pedis present GI Palpation (GI): no masses Auscultation: normal bowel sounds and normoactive bowel sounds Rectal Exam - Female: deferred Skin General skin exam: no rashes or lesions noted Rashes: no rashes Neuro General: No confusion Cranial nerves: Yes Equal, round and reactive pupils present and Yes Normal hearing present Cognition (Neuro): normal cognition Gait exam (Neuro): Normal gait present Motor exam (neuro): 5/5 motor strength present throughout Deep tendon reflexes (DTR's): Right brachioradialis reflex intensity grade: 2+, Left brachioradialis reflex intensity grade: 2+, Right patellar reflex intensity grade: 2+ and Left patellar reflex intensity grade: 2+ Extrem General: No edema Coding Level of Care Code Est Pt Prev Care 40-64y(73092) Diagnoses Annual physical exam Z00.00 Impaired glucose tolerance R73.02 Hypercholesterolemia E78.00 Colon cancer screening Z12.11 S/P rotator cuff repair Z98.890 Fibromyalgia M79.7 Epigastric abdominal pain R10.13 GERD (gastroesophageal reflux disease) K21.9 Assessment & Plan Assessment & Plan (1) Annual physical exam: Code(s): Z00.00 - Encounter for general adult medical examination without abnormal findings Category: Medical Plan: Patient is advised to eat healthy, keep well hydrated, keep active and have adequate sleep. (2) Impaired glucose tolerance: Code(s): R73.02 - Impaired glucose tolerance (oral) Category: Medical Plan: Decrease the amount of carbohydrate intake, pasta, bread, rice and potatoes are all sugar and that is aside from all the sweet stuff, remember that fruits are good but they are Sweet also. Repeat blood work requested (3) Hypercholesterolemia: Code(s): E78.00 - Pure hypercholesterolemia, unspecified Category: Medical Plan: Avoid fried foods, chicken skin, eggs, butter margarine, pastries and meat. Be it pork or beef they have a lot of cholesterol LDL goal of less than 130 and triglyceride of less than 150 (4) Colon cancer screening: Code(s): Z12.11 - Encounter for screening for malignant neoplasm of colon Category: Medical Plan: Patient has a schedule with Gastroenterology in November 2024 patient follows up with orthopedics (5) S/P rotator cuff repair: Code(s): Z98.890 - Other specified postprocedural states Category: Surgical Plan: Patient follows up with orthopedics. (6) Fibromyalgia: Code(s): M79.7 - Fibromyalgia Category: Medical Plan: Patient has been follow-up with Rheumatology and on gabapentin and amitriptyline (7) Epigastric abdominal pain: Code(s): R10.13 - Epigastric pain Category: Medical (8) GERD (gastroesophageal reflux disease): Comment: 2022 Code(s): K21.9 - Gastro-esophageal reflux disease without esophagitis Category: Medical Plan History of Present Illness The patient is a 64-year-old female presenting for a physical examination. The patient has a history of managing multiple chronic conditions. Hypercholesterolemia appears controlled with satisfactory cholesterol levels. Migraine prevention and fibromyalgia symptoms are addressed with ongoing rheumatology consultations, incorporating amitriptyline and gabapentin. Osteoarthritis is treated symptomatically with Voltaren gel due to hand pain. The patient underwent successful right shoulder rotator cuff repair in August 2023 and reports a good recovery. Her impaired glucose tolerance is monitored with her hemoglobin A1c remaining at 5.9. The patient maintains a g astroesophageal reflux disease management regimen, including dietary modifications and omeprazole administration. Additionally, she is mindful of her multiple medication allergies and adheres to a medication regimen including Tylenol, calcium, and vitamins. Health Maintenance - Mammogram: Up to date as of March 2024 - Bone Density: Up to date as of March 2023 - Routine Eye Exam: Last performed four months ago - Regular follow-ups with gastroenterology (scheduled for January 2025) and orthopedics - Medication review to manage allergies and prescriptions - Lifestyle advice: Avoidance of greasy foods and maintaining a healthy diet Social History - Does not consume alcohol or use tobacco - Dietary adjustments to avoid gastric discomfort and manage impaired glucose tolerance Review of Systems - Gastrointestinal: Reports reflux symptoms and dietary sensitivities - Musculoskeletal: Denies nausea or difficulty swallowing - Genitourinary: Reports nocturia twice per night - Neurological: Denies headaches or neurological symptoms Physical Exam General: Cooperative, healthy appearing, comfortable, no acute distress and well developed Orientation: Patient oriented x3 Limitations: No limitations Head: Normal to inspection Ears: Hearing good Nose: Normal external nose present Face and sinus: Normal facial exam Eyes: Appearance normal, both eyes and all related structures Neck: Normal visual inspection and Yes full ROM Respiratory: Normal respiratory effort and able to speak in complete sentences. Clear to auscultation bilaterally Cardiovascular: Regular rate and rhythm. Normal S1 and S2 GI: Normal to inspection. Soft to palpation and nontender Skin: No rashes or lesions noted Neuro: Patient oriented x3 Extremities: Normal to inspection Results - Labs: Normal blood count, electrolytes, renal function, liver function, B12, folic acid, thyroid levels; Hemoglobin A1c at 5.9; cholesterol levels within targets - Diagnostic tests: Gastroenterology consultation scheduled for assessment Plan Maintain current hypercholesterolemia management strategy with LDL and triglyceride targets, and ensure repeat blood work is undertaken. Fibromyalgia continues under rheumatology guidance with gabapentin and amitriptyline. Osteoarthritis management continues with topical treatments and periodic orthopedic evaluations. Continue gastroesophageal reflux interventions including omeprazole, and reinforce dietary modifications. Regular health screenings and follow-ups, including immunizations, are essential. Patient was informed and verbally consented to the use of an ambient scribe for clinic note documentation during this visit. Discussion Notes I discussed with the patient the importance of maintaining her current regimen for her lipid profile, with a goal to keep LDL levels under 130 mg/dL and triglycerides below 150 mg/dL. I reviewed her fibromyalgia management plan, confirming the regimen with amitriptyline and gabapentin, and responded to her inquiries about pain, asserting the necessity of non-pharmacological strategies alongside medication. I emphasized the importance of continuing dietary measures for refractory gastroesophageal reflux and stressed ongoing monitoring of impaired glucose tolerance. Regarding future preventative care, I highlighted vaccines like the flu shot and plans for a pneumonia vaccine in the future. The follow-up plan with orthopedics and gastroenterology was reinforced, and potential procedures discussed. She was advised to contact me should symptoms persist or worsen. Patient Instructions - Follow dietary recommendations to reduce reflux symptoms. Avoid greasy, spicy, and acidic foods. - Continue current medications as prescribed for fibromyalgia and osteoarthritis. - Keep upcoming appointments with gastroenterology and orthopedics. - Contact the clinic if symptoms worsen or new symptoms appear. - Schedule and attend all recommended health screenings and vaccinations. - Maintain fasting state for upcoming blood work as instructed. Orders: Orders Complete Blood Count Auto Diff Today R73.02 - Impaired glucose tolerance (oral) Free T4 (Free Thyroxine) Today R73.02 - Impaired glucose tolerance (oral) Thyroid Stimulating Hormone Today R73.02 - Impaired glucose tolerance (oral) Vitamin B12 and Folate Today R73.02 - Impaired glucose tolerance (oral) Vitamin D 25-OH Total Today R73.02 - Impaired glucose tolerance (oral) Comprehensive Met. Panel Today R73.02 - Impaired glucose tolerance (oral) Lipid Panel Today E78.00 - Pure hypercholesterolemia, unspecified, R73.02 - Impaired glucose tolerance (oral) Hemoglobin A1c Today R73.02 - Impaired glucose tolerance (oral) Medications: New omeprazole 20 mg PO DAILY 30 caps 0RF R10.13 - Epigastric pain
[2024-11-03 13:45] VITALS: BP 120/60; PULSE 73; TEMP 36.2; O2SAT 95; BMI 19.1
== END 2024-11-03 14:10 | disposition home or self-care (01) ==
PROVIDERS: PCP Internal Medicine; Visit Provider Internal Medicine
DX: Z00.00 Encounter for general adult medical examination without abnormal findings (principal); R73.02 Impaired glucose tolerance (oral); E78.00 Pure hypercholesterolemia, unspecified; Z12.11 Encounter for screening for malignant neoplasm of colon; Z98.890 Other specified postprocedural states; M79.7 Fibromyalgia; R10.13 Epigastric pain; K21.9 Gastro-esophageal reflux disease without esophagitis

== ENCOUNTER → 2024-11-03 13:34 | Outpatient (BNVA) | payer OTHER, SELFPAY | PROVIDERS: PCP Internal Medicine; Visit Provider Internal Medicine | DX: Z00.00 Encounter for general adult medical examination without abnormal findings (principal); R73.02 Impaired glucose tolerance (oral); E78.00 Pure hypercholesterolemia, unspecified; R10.13 Epigastric pain; M79.7 Fibromyalgia; K21.9 Gastro-esophageal reflux disease without esophagitis; Z98.890 Other specified postprocedural states | CPT/HCPCS: 99396 ==

== ENCOUNTER 2025-01-26 08:36 | Outpatient (REF) | payer OTHER, SELFPAY ==
[2025-01-26 08:47] LABS: MANUAL DIFF FLAG NO
[2025-01-26 09:10] LABS: Basophils Percent Auto 0.6 % (0-2); Eosinophils Absolute Auto 0.2 X10*3/uL (0.0-0.4); Eosinophils Percent Auto 2.1 % (0-4); Hematocrit 40.4 % (37.0-47.0); Hemoglobin 13.3 g/dl (12.0-16.0); Imm Gran Abs Auto 0.01 X10*3/uL (0.00-0.03); Imm Gran Pct Auto 0.1 % (0.0-0.4); Lymphocytes Absolute Auto 3.4 X10*3/uL (1.2-4.9); Lymphocytes Percent Auto 47.1 % (20-40); Mean Corpuscular HGB Conc 32.9 g/dl (31.0-35.0); Mean Corpuscular Hemoglobin 30.6 pg (27.0-33.0); Mean Corpuscular Volume 93.1 fL (80.0-98.0); Mean Platelet Volume 10.3 fL (9.4-12.3); Monocytes Absolute Auto 0.6 X10*3/uL (0.1-1.2); Monocytes Percent Auto 7.9 % (2-11); Neutrophils Percent Auto 42.2 % (45-73); Platelet Count 295 X10*3/uL (160-400); Red Blood Count 4.34 X10*6/uL (4.20-5.50); Red Cell Distribution Width 12.6 % (11.0-16.0); White Blood Count 7.2 X10*3/uL (4.8-10.8)
[2025-01-26 09:19] LABS: Estimated Average Glucose 117 mg/dL; Hemoglobin A1c % 5.7 % (<6.0)
[2025-01-26 09:49] LABS: Alanine Aminotransferase 22 U/L (0-31); Albumin Level 4.3 g/dL (3.5-5.0); Alkaline Phosphatase 35 U/L (39-117); Anion Gap 11 (12-20); Aspartate Amino Transferase 28 U/L (5-31); Bilirubin Total 0.7 mg/dL (0.0-1.0); Blood Urea Nitrogen 19 mg/dL (9-16); Carbon Dioxide 30 mmol/L (22-29); Chloride 105 mmol/L (96-108); Cholesterol 222 mg/dL (<200); Estimated Glomerular Filt Rate > 60; Glucose Random 99 mg/dL (60-115); HDL Cholesterol 64 mg/dL (>40); LDL Cholesterol Calculated 133 mg/dL (<100); Potassium 4.1 mmol/L (3.3-5.1); Sodium 142 mmol/L (135-145); Total Protein 7.8 g/dL (6.5-8.0); Triglycerides 126 mg/dL (<150)
[2025-01-26 09:57] LABS: Thyroid Stimulating Hormone 2.22 uIU/mL (0.32-4.0)
[2025-01-26 10:17] LABS: Folate 18.9 ng/mL (> or = 4.0); Vitamin B12 1232 pg/mL (200-900)
== END 2025-01-26 08:37 | disposition home or self-care (01) ==
LOC: HO.LAB 08:36
PROVIDERS: PCP Internal Medicine; Visit Provider Internal Medicine
DX: Z01.419 Encounter for gynecological examination (general) (routine) without abnormal findings (principal); R73.02 Impaired glucose tolerance (oral); E78.00 Pure hypercholesterolemia, unspecified; Z86.001 Personal history of in-situ neoplasm of cervix uteri
CPT/HCPCS: 36415; 80053; 80061; 82306; 82607; 82746; 83036; 84439; 84443; 85025; 99396; 99459

== ENCOUNTER 2025-01-26 14:26 | Outpatient (AMB) | payer OTHER, SELFPAY ==
--- NOTE | 2025-01-26 14:33 | A.OFFVIS_ITS ---
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 No complaints. Last Pap/HPV was negative in 08/18 Last Mammogram was BI-RADS 1 04/19 Last Colonoscopy was in 02/07, the recommendation was to repeat in 10 years [facility] Medical History FARHAD III (cervical intraepithelial neoplasia grade III) with severe dysplasia Urinary urgency Urinary frequency Breast cancer screening by mammogram Impaired glucose tolerance Hypercholesterolemia Thyroid nodule Vitamin D deficiency Migraine Left shoulder pain HPV test positive Osteopenia Rotator cuff injury Carpal tunnel syndrome Fibromyalgia Surgical History H/O LEEP Family History Father CVD (cardiovascular disease) Mother Diabetes Hypertension CVA (cerebral vascular accident) Social History Household Members: Spouse Housing: House Alcohol intake: never Patient Tobacco Use Status: Never used Tobacco e-Cigarette/Vaping Use: Never Used Second Hand Smoke Exposure: No service: No Current occupational status: unemployed Sexual orientation: Straight/Heterosexual Gender identity: Female Cognitive needs: No Hearing needs: No Vision needs: Yes (glasses) Female Reproductive History Menstrual Date of last pap smear: 08/06/23 Date of Mammogram: 04/15/24 Review of Systems Const All systems reviewed & are unremarkable except as noted in HPI and below Card Reports as per HPI Resp Reports as per HPI GI Reports as per HPI and Reports no additional complaints Reports as per HPI Physical Exam Vital Signs: Last Vital Signs BP 112/78 01/26/25 14:37 BMI result Body Mass Index 19.3 Const General: cooperative, healthy appearing and comfortable Chest Chest palpation & inspection: normal inspection of the chest and normal palpation of entire chest wall Breast/axilla inspection: normal inspection of the breasts and normal inspection of the axillae Breast/axilla palpation: normal palpation of the breasts, normal palpation of the axillae and no axillary lymphadenopathy Resp Effort & Inspection: normal respiratory effort Auscultation: clear to auscultation bilaterally Percussion: percussion normal Cardio Palpation: normal PMI Rate: regular rate Rhythm: regular rhythm Heart sounds: no murmurs and no rubs Peripheral pulses: Peripheral pulses 2+ throughout GI Inspection: Yes normal to inspection Palpation (GI): Soft to palpation, nontender, no guarding, not rigid and No hepatosplenomegaly present Percussion: Yes normal to percussion Auscultation: normal bowel sounds Rectal Exam - Female: deferred General: Yes bladder normal to palpation External Female Exam: No lesion Speculum Exam - Vagina: normal appearance of the vagina, normal palpation, normal vaginal discharge and not erythematous Speculum Exam - Cervix: normal appearance of the cervix and normal palpation Bimanual exam- vagina & uterus: normal bimanual exam, normal palpation, uterine size normal, bladder normal to palpation, consistency normal and normal palpation Bimanual Exam- Adnexa, other: normal adnexae, no masses and no tenderness Assessment & Plan Assessment & Plan (1) Well woman exam: Comment: FARHAD 3 status post LEEP in 2011 Code(s): Z01.419 - Encounter for gynecological examination (general) (routine) without abnormal findings Category: Medical Plan: Cotesting not indicated this year. Mammogram ordered for 04/20. Counseled the patient about the recommended dietary allowance of 1000 mg of Calcium & 600 IU of vitamin D. The patient is refer to GI for screening colonoscopy The patient was instructed to perform monthly self-breast exams and to schedule an annual exam in a year; All questions answered and the patient verbalized understanding. Instructed the patient to schedule annual exam in a year Orders: Orders MM tomosynthesis screening BI Today Z12.31 - Encounter for screening mammogram for malignant neoplasm of breast Referrals Gastroenterology Referral Z12.11 - Encounter for screening for malignant neoplasm of colon Coding Level of Care Code Est Pt Prev Care 40-64y(15252) Diagnoses Well woman exam Z01.419
[2025-01-26 14:37] VITALS: BP 112/78; BMI 19.3
== END 2025-01-26 14:52 | disposition home or self-care (01) ==
LOC: HO.HWS 14:26
PROVIDERS: PCP Internal Medicine; Visit Provider Obstetrics & Gynecology
DX: Z01.419 Encounter for gynecological examination (general) (routine) without abnormal findings (principal)
CPT/HCPCS: 99396; 99459

== ENCOUNTER 2025-02-05 12:51 | Outpatient (AMB) | payer OTHER, SELFPAY ==
--- NOTE | 2025-02-05 12:53 | MHC.OFFVIS ---
Vital Signs 02/05/25 13:20 Height 5 ft 5 in Weight 116 lb BMI 19.3 BP 108/58 L Blood Pressure Location Rt brachial Position Sitting Pulse 82 Pulse Source Pulse Oximeter Pulse Oximetry (%) 97 Oxygen Delivery Method Room Air Intake Visit Reasons: [place] Screening r/s 11/05/24 Intake Note: New patient for recall colo screening. Last colo w/ Dr. Galaviz 2013. CC; C.O. GERD persistence despite previously tried therapy. Pt had recently been on omeprazole 20; however, PCP did not refill the medication for her as they wanted to have a FUV first. Pt states it was not effective anyways. No additional sx or concerns at this time. 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 She is referred by Asiya Wyman. PMX High cholesterol Impaired fasting glucose HPV positive GERD Osteoarthritis of the hands Hoarse voice Constipation OAB Osteopenia Migraines Carpal tunnel syndrome Fibromyalgia syndrome * SURGICAL HISTORY Rotator cuff repair LEEP procedure Colonoscopy-2013 [facility] negative study * ALLERGIES Aspirin Baclofen Naproxen Tramadol Sumatriptan * [employer] LABS: Laboratory Tests 01/26/25 08:45 WBC 7.2 Hgb 13.3 Hct 40.4 Plt Count 295 Estimated GFR > 60 Total Bilirubin 0.7 AST 28 ALT 22 Alkaline Phosphatase 35 L TSH 2.22 Free T4 1.10 TODAY'S VISIT This is her second colonoscopy. She does not do well if she eats after 6pm r/t borborymus and discomfort. Her PCP put her on o2o but it did not help. SHe lost weight when her brother was ill, 2 years ago, from 135 to 114, but she is eating well otherwise. She denies any cardiac or respiratory problems. No anes or sed problems. SHe has HPV but no other ID problems. There is no known FHX crc or polyps. [facility] Medical History (Updated 02/05/25 @ 12:55 by ARACELY Singh) Polyarthralgia Rotator cuff injury Tendinopathy of left rotator cuff Frequency of micturition Annual physical exam Shoulder pain Annual physical exam Epigastric abdominal pain Otalgia of right ear Osteoarthritis of right shoulder Internal derangement of right shoulder Respiratory infection Cervical cancer screening Subacromial impingement of right shoulder Well woman exam Colon cancer screening FARHAD III (cervical intraepithelial neoplasia grade III) with severe dysplasia Urinary urgency Urinary frequency Breast cancer screening by mammogram Impaired glucose tolerance Hypercholesterolemia Thyroid nodule Vitamin D deficiency Migraine Left shoulder pain HPV test positive Osteopenia Carpal tunnel syndrome Fibromyalgia Surgical History (Updated 02/03/25 @ 15:25 by ARACELY Singh) H/O colonoscopy S/P rotator cuff repair H/O LEEP Family History Father CVD (cardiovascular disease) Mother Diabetes Hypertension CVA (cerebral vascular accident) Social History Household Members: Spouse Housing: House Alcohol intake: never Patient Tobacco Use Status: Never used Tobacco e-Cigarette/Vaping Use: Never Used Second Hand Smoke Exposure: No service: No Current occupational status: unemployed Sexual orientation: Straight/Heterosexual Gender identity: Female Cognitive needs: No Hearing needs: No Vision needs: Yes (glasses) Review of Systems Const Denies fatigue, Denies fever(s), Denies night sweats, Denies poor appetite and Denies weight loss Eyes Details: glasses Reports requires corrective lenses ENT Reports Normal hearing present, Denies dental pain, Denies dysphagia, Denies hearing loss, Denies mouth pain, Denies odynophagia, Denies throat swelling, Denies tongue swelling and Reports other (Dentition adequate) Card Reports no additional complaints Resp Reports no additional complaints GI Details: Denies abdominal pain, Denies melena, Denies bloating, Denies hematochezia, Denies constipation, Denies GI cramping, Denies dysphagia, Denies excessive flatus, Denies early satiety, Reports dyspepsia, Denies heartburn, Denies diarrhea, Denies nausea, Denies odynophagia, Denies vomiting and Denies hematemesis Skin/Breast Denies pruritus, Denies lesions, Denies rash and Denies jaundice Neuro Reports Normal hearing present and Denies Abnormal speech present Endo Denies fatigue Aller/Immun Denies throat swelling and Denies tongue swelling Physical Exam Const General: cooperative, no acute distress, well developed and well groomed Nutritional Appearance: well nourished and thin Orientation/consciousness: oriented to person, oriented to place and oriented to time Limitations: No language barrier HEENT Head: Yes normocephalic and Yes atraumatic Eyes General: appearance normal, both eyes and all related structures Pupils: Equal, round and reactive pupils present Neck Neck: Yes normal visual inspection and Yes no lymphadenopathy Thyroid: Thyroid normal Resp Effort & Inspection: normal respiratory effort and able to speak in complete sentences Auscultation: clear to auscultation bilaterally Cardio Rate: regular rate Rhythm: regular rhythm Heart sounds: Normal, physiologic split S2 sound present Peripheral pulses: radial pulses present and posterior tibial pulses present GI Inspection: No distended and No Abdominal panniculus present Palpation (GI): Soft to palpation, nontender, no guarding, not rigid and No hepatosplenomegaly present Percussion: Yes normal to percussion Auscultation: normal bowel sounds Rectal Exam - Female: deferred Skin General skin exam: no rashes or lesions noted, turgor normal, skin not dry, no jaundice, No spider nevi and no striae Rashes: no rashes Nails: normal Neuro General: oriented to person, oriented to place and oriented to time Cranial nerves: Yes Equal, round and reactive pupils present and Yes Normal hearing present Speech: No Abnormal speech present Extrem General: Yes normal to inspection, No clubbing, No cyanosis and No edema Psych Appearance: grossly normal and well kempt Mental Status: mental status grossly normal Speech and movement: Normal speech and movement present Affect: normal affect Attitude: cooperative Thought process: Normal thought process present and not confabulating Thought content: Normal thought content present Insight: Good insight present (Psych) Judgement: Good judgement present (Psych) Assessment & Plan Assessment & Plan (1) Pre-op examination: Code(s): Z01.818 - Encounter for other preprocedural examination Category: Medical Plan This is her second colonoscopy. She does not do well if she eats after 6pm r/t borborymus and discomfort. Her PCP put her on o2o but it did not help. SHe lost weight when her brother was ill, 2 years ago, from 135 to 114, but she is eating well otherwise. She denies any cardiac or respiratory problems. No anes or sed problems. SHe has HPV but no other ID problems. There is no known FHX crc or polyps. Orders: Orders Colonoscopy - GI Use Only Today Z01.818 - Encounter for other preprocedural examination Medications: New peg 3350-electrolytes 236-22.74-6.74 -5.86 gram (Golytely) until fecal effluent is clear; do not exceed a total volume of 2,000 mL 240 mL PO Q10M 1 day 4,000 mL 0RF Z12.11 - Encounter for screening for malignant neoplasm of colon bisacodyl (Dulcolax (bisacodyl)) 10 mg (2 x 5 mg) PO BEDTIME 2 days 4 tabs 0RF Coding Level of Care Code New Pt Level 3 (72896) Diagnoses Pre-op examination Z01.818
[2025-02-05 13:20] VITALS: BP 108/58; PULSE 82; O2SAT 97; BMI 19.3
== END 2025-02-05 13:49 | disposition home or self-care (01) ==
LOC: HO.HGI 12:52
PROVIDERS: PCP Internal Medicine; Visit Provider Nurse Practitioner
DX: Z01.818 Encounter for other preprocedural examination (principal); Z12.11 Encounter for screening for malignant neoplasm of colon
CPT/HCPCS: 99024

== ENCOUNTER → 2025-02-05 12:51 | Outpatient (BNVA) | payer OTHER, SELFPAY | PROVIDERS: PCP Internal Medicine; Visit Provider Nurse Practitioner | DX: Z01.818 Encounter for other preprocedural examination (principal); K21.9 Gastro-esophageal reflux disease without esophagitis | CPT/HCPCS: 99212 ==

== ENCOUNTER 2025-02-10 13:23 | Outpatient (AMB) | payer OTHER, SELFPAY ==
[2025-02-10 13:25] VITALS: BP 110/74; PULSE 76; O2SAT 95
--- NOTE | 2025-02-10 13:25 | MHC.PC.OV ---
Vital Signs 02/10/25 13:25 Height 5 ft 5 in Weight 120 lb 2 oz BMI 20.0 BP 110/74 Blood Pressure Location Lt brachial Position Sitting Pulse 76 Pulse Source Pulse Oximeter Pulse Oximetry (%) 95 Oxygen Delivery Method Room Air Intake Visit Reasons: gerd Credit Processor Required: No Accompanied by: Self / Same As Patient Allergies aspirin [ASPIRIN] Allergy (Unknown, Verified 02/10/25 13:25) STOMACH UPSET, irritation baclofen Allergy (Unknown, Verified 02/10/25 13:25) mouth ulcer naproxen Allergy (Unknown, Verified 02/10/25 13:25) mouth sores tramadol [TRAMADOL] Allergy (Unknown, Verified 02/10/25 13:25) DIZZY, N&V, dizziness sumatriptan [From Imitrex] Adverse Reaction (Intermediate, Verified 02/10/25 13:25) Chest Pain Medication List - Last Reconciled 02/10/25 by Asiya Wyman MD acetaminophen (Tylenol) 650 mg (2 x 325 mg) PO Q6H PRN amitriptyline 10 mg PO BEDTIME bisacodyl (Dulcolax (bisacodyl)) 10 mg (2 x 5 mg) PO BEDTIME 2 days calcium carbonate-vitamin D3 600 mg-5 mcg (200 unit) (Calcium 600 + D(3)) 1 tab PO DAILY fluticasone propionate 50 mcg/actuation 1 spray intranasal DAILY gabapentin 400 mg PO BID mometasone 0.1% 1 appl topical DAILY 2 weeks multivitamin 1 tab PO DAILY peg 3350-electrolytes 236-22.74-6.74 -5.86 gram (Golytely) 240 mL PO Q10M 1 day polyethylene glycol 3350 (Miralax) 17 grams PO DAILY Tobacco use date assessed: 02/10/25 Dental Screening Dental Screen Date: 02/10/25 Did you have a dental visit in the last 12 months?: Yes Did you have a dental problem in the last 6 months where you did not have access to dental care?: No Was dental information given to patient?: Patient has dentist HPI gerd HPI Details bilateral numbness of the feet PFSH Medical History (Updated 02/10/25 @ 13:43 by Asiya Wyman MD) Colon cancer screening Polyarthralgia Rotator cuff injury Tendinopathy of left rotator cuff Frequency of micturition Annual physical exam Shoulder pain Annual physical exam Epigastric abdominal pain Otalgia of right ear Osteoarthritis of right shoulder Internal derangement of right shoulder Respiratory infection Cervical cancer screening Subacromial impingement of right shoulder Well woman exam FARHAD III (cervical intraepithelial neoplasia grade III) with severe dysplasia Urinary urgency Urinary frequency Breast cancer screening by mammogram Impaired glucose tolerance Hypercholesterolemia Thyroid nodule Vitamin D deficiency Migraine Left shoulder pain HPV test positive Osteopenia Carpal tunnel syndrome Fibromyalgia Surgical History H/O colonoscopy S/P rotator cuff repair H/O LEEP Family History Father CVD (cardiovascular disease) Mother Diabetes Hypertension CVA (cerebral vascular accident) Social History Household Members: Spouse Housing: House Alcohol intake: never Patient Tobacco Use Status: Never used Tobacco e-Cigarette/Vaping Use: Never Used Second Hand Smoke Exposure: No service: No Current occupational status: unemployed Sexual orientation: Straight/Heterosexual Gender identity: Female Cognitive needs: No Hearing needs: No Vision needs: Yes (glasses) Questionnaire PHQ-9 Over the last 2 weeks, how often have you been bothered by any of the following problems? 1. Little interest or pleasure in doing things: nearly every day 2. Feeling down, depressed, or hopeless: nearly every day 3. Trouble falling or staying asleep, or sleeping too much: more than half the days 4. Feeling tired or having little energy: several days 5. Poor appetite or overeating: not at all 6. Feeling bad about yourself - or that you are a failure or have let yourself or your family down: not at all 7. Trouble concentrating on things, such as reading the newspaper or watching television: not at all 8. Moving or speaking so slowly that other people could have noticed. Or the opposite - being so fidgety or restless that you have been moving around a lot more than usual: not at all 9. Thoughts that you would be better off or of hurting yourself in some way: not at all Total score: 9 Source: Developed by Drs. Gallito Day, Raquel BJosé Miguel Quintana and colleagues, with an educational fallon from [employer]. Thrive Questionnaire Date Thrive assessed: 02/10/25 I am a: Patient What is your living situation today?: I have a steady place to live Within the past 12 months, did the food you bought not last and you didn't have the money to get more?: Never true Within the past 12 months, did you worry whether your food would run out before you got money to buy more?: Never true Do you have trouble paying for medicines?: No Do you have trouble getting transportation to medical appointments?: No Do you have trouble paying your heating and electricity bill?: No Do you have trouble taking care of your child, family member or friend?: No Do you have trouble with day-to-day activities such as bathing, preparing meals, shopping, managing finances, etc.?: No Are you currently unemployed and looking for a job?: No Are you interested in more education?: No Please select the resources that you would like help with: None Currently or been in a relationship where the following occur: No concerns reported THRIVE Score: 0 AUDIT C Alcohol Use Questionnaire (AUDIT-C) 1. How often do you have a drink containing alcohol?: Monthly or less 2. How many drinks containing alcohol do you have on a typical day when you are drinking?: 1 or 2 3. How often do you have six or more drinks on one occasion?: Never Total Score: 1 JONY-7 AMB Questionnaire JONY-7 Date JONY - 7 assessed: 11/03/24 Source: Developed by Drs. Gallito Day, José Miguel Bello and colleagues, with an educational fallon from [employer]. Physical exam (Primary Care) Vital Signs: Last Vital Signs Pulse 76 02/10/25 13:25 BP 110/74 02/10/25 13:25 Pulse Ox 95 02/10/25 13:25 Oxygen Delivery Method Room Air 02/10/25 13:25 BMI result Body Mass Index 20.0 Tobacco/Smoking Status: Tobacco use Status Tobacco use date assessed 02/10/25 02/10/25 13:28 Patient Tobacco Use Status Never used Tobacco 02/10/25 13:28 e-Cigarette/Vaping Use Never Used 02/10/25 13:28 PHQ-9: PHQ-9 Score PHQ-9: Total score 9 02/10/25 13:38 Thrive Assessment: Date of Thrive Assessment Date Thrive assessed 02/10/25 02/10/25 13:28 Currently or been in a relationship where the following occur: No concerns reported Const General: alert; No acute distress Eyes Conjunctivae: conjunctivae normal Resp Auscultation: clear to auscultation bilaterally Cardio Rate: regular rate Rhythm: regular rhythm GI Inspection: Yes normal to inspection Extrem General: Yes normal to inspection and No edema Coding Level of Care Code Est Pt Level 4 (13381) Complex EM visit Add On G2211 Diagnoses GERD (gastroesophageal reflux disease) K21.9 Impaired glucose tolerance R73.02 Hypercholesterolemia E78.00 Colon cancer screening Z12.11 Numbness and tingling of both feet R20.0; R20.2 Assessment & Plan Assessment & Plan (1) GERD (gastroesophageal reflux disease): Comment: 2022 Code(s): K21.9 - Gastro-esophageal reflux disease without esophagitis Category: Medical Plan: Avoid the foods that causes that usually spicy foods, tomato products, juices, coffee, soda and foods that your sensitive to. After eating do not lie down, allow 3-4 hours before in lie down. And keep the head of bed above 30 degrees to avoid the acid from going up. (2) Impaired glucose tolerance: Code(s): R73.02 - Impaired glucose tolerance (oral) Category: Medical Plan: Decrease the amount of carbohydrate intake, pasta, bread, rice and potatoes are all sugar and that is aside from all the sweet stuff, remember that fruits are good but they are Sweet also. (3) Hypercholesterolemia: Code(s): E78.00 - Pure hypercholesterolemia, unspecified Category: Medical Plan: Avoid fried foods, chicken skin, eggs, butter margarine, pastries and meat. Be it pork or beef they have a lot of cholesterol LDL goal of less than 130 and triglyceride of less than 150 (4) Colon cancer screening: Code(s): Z12.11 - Encounter for screening for malignant neoplasm of colon Category: Medical Plan: Patient has met with Gastroenterology and will be scheduled for colonoscopy (5) Numbness and tingling of both feet: Code(s): R20.0 - Anesthesia of skin; R20.2 - Paresthesia of skin Category: Medical Plan History of Present Illness The patient is a 64-year-old female presenting for a follow-up visit focused on managing chronic conditions. She has a medical history including hypercholesterolemia, GERD, and overactive bladder. Recently, she raised concerns about neuropathy symptoms in her feet, experiencing numbness perceived as warmth, without significant pain. These symptoms have developed over time, and her current management focuses on monitoring lifestyle choices that could influence cholesterol levels. Past preventative measures include up-to-date bone density and mammogram screenings, with gastroenterology consult and a forthcoming colonoscopy due to delayed colon cancer screening. Health Maintenance - Bone density screening: Up to date - Mammogram: Up to date - Colonoscopy: Scheduled for comprehensive colon cancer screening - Shingles vaccination: Recent - Tetanus vaccination: Up to date - Cholesterol management: Ongoing dietary modifications Social History - Engages in physical activity through household tasks and caregiving - Recent focus on dietary modifications to manage hypercholesterolemia Review of Systems - Neurological: Reports numbness and warmth in feet; occasional hand numbness due to carpal tunnel syndrome - Musculoskeletal: Denies significant pain - Cardiovascular: Denies new symptoms - Respiratory: Denies issues - Gastrointestinal: GERD managed, avoiding aggravating foods - Genitourinary: Overactive bladder previously noted Physical Exam Results - Labs: Normal blood count, electrolytes, renal function, calcium, liver numbers - Hemoglobin A1c: 5.7 - Cholesterol: LDL 133 mg/dL - Folic acid, vitamin D, thyroid: Within normal limits Plan The patient will continue monitoring cholesterol levels with dietary adjustments aiming for an LDL target of less than 130 mg/dL. Follow-up with gastroenterology for a scheduled colonoscopy will proceed to ensure comprehensive colon cancer screening. Neuropathy symptoms observed in the feet will be monitored, and further evaluation may be pursued if symptoms persist or escalate. Continued attention to preventive health maintenance is recommended, including vaccinations and routine screenings, with modifications in diet to manage GERD effectively. Patient was informed and verbally consented to the use of an ambient scribe for clinic note documentation during this visit. Discussion Notes I discussed with the patient the current state of her hypercholesterolemia and reinforced the importance of maintaining a healthy diet, highlighting reductions in high-cholesterol food consumption. We discussed her ongoing neuropathy symptoms and potential lifestyle influences, reassuring that while discomfort exists, current management strategies would be reviewed during follow-ups if symptoms continue. Regarding preventative health, I acknowledged her adherence to immunizations and screenings, emphasizing the forthcoming colonoscopy's necessity for comprehensive care. We assessed the medication regimen for optimal management and encouraged open communication about any concerns that may arise. Patient Instructions - Continue dietary changes to lower cholesterol - Monitor foot and hand symptoms; report changes - Maintain upcoming colonoscopy appointment - Stay updated with vaccinations and health screenings - Follow medication regimen as prescribed - Avoid foods triggering GERD symptoms, especially in the evening - Stay physically active, aligning with current capabilities Orders: Orders NE electromyogram (EMG) Today R20.0 - Anesthesia of skin, R20.2 - Paresthesia of skin NE nerve conduction velocity Today R20.0 - Anesthesia of skin, R20.2 - Paresthesia of skin
== END 2025-02-10 13:49 | disposition home or self-care (01) ==
LOC: HO.HMCH 13:24
PROVIDERS: PCP Internal Medicine; Visit Provider Internal Medicine
DX: K21.9 Gastro-esophageal reflux disease without esophagitis (principal); R73.02 Impaired glucose tolerance (oral); E78.00 Pure hypercholesterolemia, unspecified; Z12.11 Encounter for screening for malignant neoplasm of colon; R20.0 Anesthesia of skin; R20.2 Paresthesia of skin

== ENCOUNTER → 2025-02-10 13:23 | Outpatient (BNVA) | payer OTHER, SELFPAY | PROVIDERS: PCP Internal Medicine; Visit Provider Internal Medicine | DX: K21.9 Gastro-esophageal reflux disease without esophagitis (principal); R73.02 Impaired glucose tolerance (oral); E78.00 Pure hypercholesterolemia, unspecified; R20.0 Anesthesia of skin; R20.2 Paresthesia of skin; N32.81 Overactive bladder | CPT/HCPCS: 96127; 99212 ==

== ENCOUNTER 2025-03-10 13:11 | Outpatient (AMB) | payer OTHER, SELFPAY ==
[2025-03-10 13:14] VITALS: BP 108/62; PULSE 78; O2SAT 97; BMI 19.5
--- NOTE | 2025-03-10 13:14 | A.OFFVIS_ITS ---
Vital Signs 03/10/25 13:14 Height 5 ft 5 in Weight 117 lb BMI 19.5 BP 108/62 Blood Pressure Location Lt brachial Position Sitting Pulse 78 Pulse Source Pulse Oximeter Pulse Oximetry (%) 97 Oxygen Delivery Method Room Air Intake Visit Reasons: FMS Intake Note: Patient presents today for FMS follow up. Patient states right neck and shoulder pain for 2 months, and bilateral knee pain. Accompanied by: Self / Same As Patient Allergies aspirin (ASPIRIN) Allergy (Unknown, Verified 03/10/25 13:20) STOMACH UPSET, irritation baclofen Allergy (Unknown, Verified 03/10/25 13:20) mouth ulcer naproxen Allergy (Unknown, Verified 03/10/25 13:20) mouth sores tramadol (TRAMADOL) Allergy (Unknown, Verified 03/10/25 13:20) DIZZY, N&V, dizziness sumatriptan (From Imitrex) Adverse Reaction (Intermediate, Verified 03/10/25 13:20) Chest Pain Medication List - Last Reconciled 03/10/25 by Constanza Aguirre MD acetaminophen (Tylenol) 650 mg (2 x 325 mg) PO Q6H PRN amitriptyline 10 mg PO BEDTIME bisacodyl (Dulcolax (bisacodyl)) 10 mg (2 x 5 mg) PO BEDTIME 2 days calcium carbonate-vitamin D3 600 mg-5 mcg (200 unit) (Calcium 600 + D(3)) 1 tab PO DAILY fluticasone propionate 50 mcg/actuation 1 spray intranasal DAILY gabapentin 400 mg PO BID mometasone 0.1% 1 appl topical DAILY 2 weeks multivitamin 1 tab PO DAILY peg 3350-electrolytes 236-22.74-6.74 -5.86 gram (Golytely) 240 mL PO Q10M 1 day polyethylene glycol 3350 (Miralax) 17 grams PO DAILY HPI Comments Details: Patient is a 64-year-old female with GERD, polyarticular osteoarthritis, hyperlipidemia, migraines and fibromyalgia here today for follow up Interval History: Patient last seen 09/08/[address] John - Stable fibromyalgia on regimen - c/o left wrist pain Today - amitriptyline no longer effective - getting daily migraines and having to use Excedrin migraine everyday - sleep is poor Rheumatologic History: Current Rheumatology Medication(s): Amitriptyline 10 mg nightly Gabapentin 400 mg twice a day PFSH Medical History (Updated 02/10/25 @ 13:43 by Asiya Wyman MD) Colon cancer screening Polyarthralgia Rotator cuff injury Tendinopathy of left rotator cuff Frequency of micturition Annual physical exam Shoulder pain Annual physical exam Epigastric abdominal pain Otalgia of right ear Osteoarthritis of right shoulder Internal derangement of right shoulder Respiratory infection Cervical cancer screening Subacromial impingement of right shoulder Well woman exam FARHAD III (cervical intraepithelial neoplasia grade III) with severe dysplasia Urinary urgency Urinary frequency Breast cancer screening by mammogram Impaired glucose tolerance Hypercholesterolemia Thyroid nodule Vitamin D deficiency Migraine Left shoulder pain HPV test positive Osteopenia Carpal tunnel syndrome Fibromyalgia Surgical History H/O colonoscopy S/P rotator cuff repair H/O LEEP Family History Father CVD (cardiovascular disease) Mother Diabetes Hypertension CVA (cerebral vascular accident) Social History Household Members: Spouse Housing: House Alcohol intake: never Patient Tobacco Use Status: Never used Tobacco e-Cigarette/Vaping Use: Never Used Second Hand Smoke Exposure: No service: No Current occupational status: unemployed Sexual orientation: Straight/Heterosexual Gender identity: Female Cognitive needs: No Hearing needs: No Vision needs: Yes (glasses) Review of Systems Const Details: Review of Systems Constitutional: Denies fever, chills, weight loss ENT: Denies vision changes, eye pain or eye redness, dental caries, dry mouth GI: Denies nausea, vomiting, diarrhea, abdominal pain, change in BM Pulm: Denies SOB, DIAZ, hemoptysis, wheezing Cards: Denies chest pain, palpitations Skin: Denies Raynaud's, rash, nail changes, photosensitivity, 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 Well appearing and in no apparent painful distress MSK Hands * Right Hand: Able to make a fist. No swelling or tenderness to palpation of these joints. No deformities noted. * Left Hand: Able to make a fist. No swelling or tenderness to palpation of these joints. No deformities noted. Wrists * Right Wrist: Full ROM. 70 degrees of wrist flexion, 80 degrees of wrist extension. No swelling or TTP * Left Wrist: Full ROM. 70 degrees of wrist flexion, 80 degrees of wrist extension. No swelling or TTP Elbows * Right Elbow: Full ROM. No swelling or TTP. No TTP of the medial and lateral epicondyles * Left Elbow: Full ROM. No swelling or TTP. No TTP of the medial and lateral epicondyles Shoulders * Right shoulder: Full ROM. No swelling noted. No TTP of the AC joint, subacromial bursa or posterior shoulder * Left shoulder: Full ROM. No swelling noted. No TTP of the AC joint, subacromial bursa or posterior shoulder Knees * Right knee: Full ROM. No swelling noted. No TTP of the knee joint lie or pes anserine bursa * Left knee: Full ROM. No swelling noted. No TTP of the knee joint lie or pes anserine bursa. Ankles * Right ankle: Good ankle dorsiflexion and plantar flexion. No swelling. No TTP of the ankle joint * Left ankle: Good ankle dorsiflexion and plantar flexion. No swelling. No TTP of the ankle joint Feet * Right foot: Negative squeeze test * Left foot: Negative squeeze test Tender points? * Tenderness to palpation of the bilateral trapezius, supraspinatus, anterior costochondral junctions, bilateral suboccipital muscle insertions SKIN No rashes Results Reviewed Results Reviewed: Laboratory Tests 01/26/25 08:45 WBC 7.2 RBC 4.34 Hgb 13.3 Hct 40.4 Plt Count 295 Sodium 142 Potassium 4.1 Chloride 105 Carbon Dioxide 30 H BUN 19 H Creatinine 0.67 AST 28 ALT 22 25-OH Vitamin D Total 45.0 Assessment & Plan Assessment & Plan (1) Fibromyalgia: Code(s): M79.7 - Fibromyalgia Category: Medical Plan: #Fibromyalgia Patient is a 64-year-old female with fibromyalgia here today for follow up. Currently not having good efficacy from amitriptyline. We will try low-dose naltrexone. Instructions given Plan - Stop amitriptyline - Start low dose naltrexone 4.5mg nightly - Continue gabapentin 400mg PO bid - RTC 6 months Plan I spent 20 minutes reviewing the record and labs, taking a history, examining the patient, discussing the treatment plan, ordering diagnostic work up and documenting in the medical record Medications: New naltrexone 50 mg PO QWEEK 13 tabs 1RF 90 days M79.7 - Fibromyalgia Refilled gabapentin 400 mg PO BID 180 caps 1RF Discontinued amitriptyline Discontinued Reason: Change Referral Type 10 mg PO BEDTIME 90 tabs 1RF M79.7 - Fibromyalgia Coding Level of Care Code Est Pt Level 3 (24456) Diagnoses Fibromyalgia M79.7
== END 2025-03-10 13:56 | disposition home or self-care (01) ==
LOC: HO.RHE 13:11
PROVIDERS: PCP Internal Medicine; Visit Provider Student in an Organized Health Care Education/Training Program
DX: M79.7 Fibromyalgia (principal)
CPT/HCPCS: 99213

== ENCOUNTER → 2025-03-10 13:11 | Outpatient (BNVA) | payer OTHER, SELFPAY | PROVIDERS: PCP Internal Medicine; Visit Provider Student in an Organized Health Care Education/Training Program | DX: M79.7 Fibromyalgia (principal) | CPT/HCPCS: 99212 ==

== ENCOUNTER 2025-03-24 08:44 | Outpatient (REF) | payer OTHER, SELFPAY ==
--- NOTE | 2025-03-24 08:46 | EMG_ITS ---
Please see the attached neurophysiology report MTDD
== END 2025-03-24 08:45 | disposition home or self-care (01) ==
LOC: HO.NEURO 08:44
PROVIDERS: PCP Internal Medicine; Visit Provider Internal Medicine
DX: R20.0 Anesthesia of skin (principal); R20.2 Paresthesia of skin
CPT/HCPCS: 95886; 95913

== ENCOUNTER → 2025-03-24 08:46 | Outpatient (BNV) | payer OTHER, SELFPAY | PROVIDERS: PCP Internal Medicine; Visit Provider Psychiatry & Neurology Neurology | DX: G62.89 Other specified polyneuropathies (principal) | CPT/HCPCS: 95886; 95913 ==

== ENCOUNTER 2025-04-21 12:57 | Outpatient (REF) | payer OTHER, SELFPAY | END 2025-04-21 12:58 | disposition home or self-care (01) | LOC: HO.MAMMO 12:57 | PROVIDERS: PCP Internal Medicine; Referring Provider Obstetrics & Gynecology; Visit Provider Internal Medicine | DX: Z12.31 Encounter for screening mammogram for malignant neoplasm of breast (principal) | CPT/HCPCS: 77063; 77067 ==

== ENCOUNTER → 2025-04-21 13:00 | Outpatient (BNV) | payer OTHER, SELFPAY | PROVIDERS: PCP Internal Medicine; Referring Provider Obstetrics & Gynecology; Visit Provider Radiology Body Imaging | DX: Z12.31 Encounter for screening mammogram for malignant neoplasm of breast (principal) | CPT/HCPCS: 77063; 77067 ==

== ENCOUNTER 2025-06-23 13:47 | Outpatient (AMB) | payer OTHER, SELFPAY ==
--- NOTE | 2025-06-23 13:52 | MHC.OFFVIS ---
Intake Visit Reasons: Polyneuropathy Allergies aspirin (ASPIRIN) Allergy (Unknown, Verified 03/10/25 13:20) STOMACH UPSET, irritation baclofen Allergy (Unknown, Verified 03/10/25 13:20) mouth ulcer naproxen Allergy (Unknown, Verified 03/10/25 13:20) mouth sores tramadol (TRAMADOL) Allergy (Unknown, Verified 03/10/25 13:20) DIZZY, N&V, dizziness sumatriptan (From Imitrex) Adverse Reaction (Intermediate, Verified 03/10/25 13:20) Chest Pain HPI Comments Details: The patient is a 64-year-old female, previously seen for migraine headaches which were still happening on almost daily basis, was here with bilateral foot burning discomfort, with notable exacerbation at night. She reports a progressive worsening of symptoms over the past few months, characterized by numbness and a significant level of pain, particularly during activities such as standing. A nerve conduction study from February identified mild axonal sensory motor neuropathy, predominantly affecting the feet. Despite normal CBC results and a slightly elevated Hemoglobin A1c, a genetic basis for the neuropathy is considered, given the absence of common metabolic causes. The patient denies diabetes and alcohol consumption. The patient's foot discomfort is not alleviated by her current gabapentin regimen prescribed for fibromyalgia. She also reports daily migraine headaches, further complicating her condition. The patient acknowledges efforts to manage foot warmth at night, which significantly disrupts her sleep. [facility] Medical History (Updated 06/23/25 @ 14:02 by Caio Hardy MD) Colon cancer screening Polyarthralgia Rotator cuff injury Tendinopathy of left rotator cuff Frequency of micturition Annual physical exam Shoulder pain Annual physical exam Epigastric abdominal pain Otalgia of right ear Osteoarthritis of right shoulder Internal derangement of right shoulder Respiratory infection Cervical cancer screening Subacromial impingement of right shoulder Well woman exam FARHAD III (cervical intraepithelial neoplasia grade III) with severe dysplasia Urinary urgency Urinary frequency Breast cancer screening by mammogram Impaired glucose tolerance Hypercholesterolemia Thyroid nodule Vitamin D deficiency Migraine Left shoulder pain HPV test positive Osteopenia Carpal tunnel syndrome Fibromyalgia Surgical History H/O colonoscopy S/P rotator cuff repair H/O LEEP Family History Father CVD (cardiovascular disease) Mother Diabetes Hypertension CVA (cerebral vascular accident) Social History Household Members: Spouse Housing: House Alcohol intake: never Patient Tobacco Use Status: Never used Tobacco e-Cigarette/Vaping Use: Never Used Second Hand Smoke Exposure: No service: No Current occupational status: unemployed Sexual orientation: Straight/Heterosexual Gender identity: Female Cognitive needs: No Hearing needs: No Vision needs: Yes (glasses) Review of Systems Narrative Constitutional:?No fever, chills, fatigue, weight loss, or night sweats. HEENT:?No vision changes, hearing loss, nasal congestion, sore throat. Cardiovascular:?No chest pain, palpitations, orthopnea, PND, or leg swelling. Respiratory:?No cough, shortness of breath, wheezing, or hemoptysis. Gastrointestinal:?No nausea, vomiting, abdominal pain, diarrhea, or constipation. Genitourinary:?No dysuria, frequency, incontinence, or hematuria. Musculoskeletal:?No joint pain, stiffness, weakness, or muscle aches. Neurological:? Complain of almost daily headaches and burning discomfort in feet. Psychiatric:?No anxiety, depression, mood swings, sleep disturbance, or hallucinations. Endocrine:?No heat/cold intolerance, polydipsia, polyuria, or hair/skin changes. Hematologic/Lymphatic:?No easy bruising, bleeding, or lymphadenopathy. Integumentary (Skin):?No rash, lesions, itching, or color changes. Allergic/Immunologic:?No seasonal allergies, hives, or recurrent infections. Physical Exam Neuro Other: Mental Status: Alert and oriented to person, place, and time. Normal attention. Normal spontaneous speech, fluency, and comprehension. No obvious issues with mood and memory. Affect is appropriate. Cranial Nerves: CN II: Visual zuniga full to confrontation, visual acuity intact. CN III, IV, : Pupils equal, round, reactive to light and accommodation. Extraocular movements are normal. CN V: Facial sensation is normal. CN VII: Facial movements symmetrical. CN VIII: Hearing intact to bedside conversation is normal. CN IX, X: Palate elevates symmetrically. CN XI: Shoulder shrug and head turn symmetrical. CN XII: Tongue midline without atrophy or fasciculations. Motor: Bulk and tone normal in all extremities. No significant muscle weakness in arms and legs. No drift. Reflexes: Deep tendon reflexes 1+ and symmetric. Plantar response down-going bilaterally. Coordination: [id number] and [id number] testing normal. No dysmetria. Gait and Station: No obvious gait abnormality. No ataxia or instability. Sensory: Vibratory sensation is present in toes. Extrapyramidal: Full facial expressions and blinking. No rigidity. Movements are appropriate with no tremor or abnormality. Speech: Normal; no dysarthria or tremor. Assessment & Plan Assessment & Plan (1) Migraine: Comment: [place] [facility] [place]: glu 78, pro 44, WBCs 3, RBCs 0. Code(s): G43.909 - Migraine, unspecified, not intractable, without status migrainosus Category: Medical Qualifiers: Migraine type: without aura Status migrainosus presence: without status migrainosus Intractability: not intractable Qualified Code(s): G43.009 - Migraine without aura, not intractable, without status migrainosus (2) Peripheral neuropathy: Comment: February 2025 Nerve conduction test done 03/24/2025 showing mild axonal sensory and motor peripheral neuropathy in feet Code(s): G62.9 - Polyneuropathy, unspecified Category: Medical Qualifiers: Peripheral neuropathy type: polyneuropathy, unspecified Qualified Code(s): G62.9 - Polyneuropathy, unspecified Plan Impression recommendations: 64 years old woman who I had seen in the past for migraine headaches this time was here for bilateral foot burning discomfort that was mostly noted at night. Her examination revealed relatively high arches and slight flexion deformity of toes. Reflexes were 1+ and vibratory sensations were present in toes. Gait was normal. She had an EMG nerve conduction study few months ago that revealed mild axonal sensory motor peripheral neuropathy that was more pronounced in feet than legs. Etiology of this neuropathy might be genetic based. The known metabolic causes have been ruled out. I am ordering few more test to see if any other common causes detected. Otherwise treatment is supportive. For diagnosis of fibromyalgia, she was already taking gabapentin. I have added amitriptyline 25 mg at night that could help with this symptom and sleep. In addition, she has complain of almost daily headaches, which can also be help with amitriptyline. Orders: Orders Immunofixation Pnl, Serum Today G62.9 - Polyneuropathy, unspecified Lyme IgG/IgM w/reflex to WB Today G62.9 - Polyneuropathy, unspecified Medications: New amitriptyline 25 mg PO BEDTIME 60 tabs 0RF Coding Level of Care Code New Pt Level 4 (81146) Diagnoses Migraine without aura and without status migrainosus, not intractable G43.009 Migraine type: without aura Status migrainosus presence: without status migrainosus Intractability: not intractable Peripheral polyneuropathy G62.9 Peripheral neuropathy type: polyneuropathy, unspecified
== END 2025-06-23 14:08 | disposition home or self-care (01) ==
LOC: HO.HSM 13:49
PROVIDERS: PCP Internal Medicine; Visit Provider Psychiatry & Neurology Neurology
DX: G43.009 Migraine without aura, not intractable, without status migrainosus (principal); G62.9 Polyneuropathy, unspecified
CPT/HCPCS: 99214

== ENCOUNTER → 2025-06-23 13:47 | Outpatient (BNVA) | payer OTHER, SELFPAY | PROVIDERS: PCP Internal Medicine; Visit Provider Psychiatry & Neurology Neurology | DX: G43.009 Migraine without aura, not intractable, without status migrainosus (principal); G62.9 Polyneuropathy, unspecified | CPT/HCPCS: 99212 ==

== ENCOUNTER 2025-06-25 14:04 | Outpatient (AMB) | payer OTHER, SELFPAY ==
--- NOTE | 2025-06-25 14:08 | MHC.PC.OV ---
Vital Signs 06/25/25 14:09 Height 5 ft 5 in Weight 122 lb 2 oz BMI 20.3 BP 96/54 L Blood Pressure Location Lt brachial Position Sitting Pulse 75 Pulse Source Pulse Oximeter Temp 97.1 F Temp Source Temporal Artery Scan Pulse Oximetry (%) 97 Oxygen Delivery Method Room Air Intake Visit Reasons: numbness of feet Allergies aspirin (ASPIRIN) Allergy (Unknown, Verified 06/25/25 14:11) STOMACH UPSET, irritation baclofen Allergy (Unknown, Verified 06/25/25 14:11) mouth ulcer naproxen Allergy (Unknown, Verified 06/25/25 14:11) mouth sores tramadol (TRAMADOL) Allergy (Unknown, Verified 06/25/25 14:11) DIZZY, N&V, dizziness sumatriptan (From Imitrex) Adverse Reaction (Intermediate, Verified 06/25/25 14:11) Chest Pain Medication List - Last Reconciled 06/25/25 by Asiya Wyman MD acetaminophen (Tylenol) 650 mg (2 x 325 mg) PO Q6H PRN amitriptyline 25 mg PO BEDTIME bisacodyl (Dulcolax (bisacodyl)) 10 mg (2 x 5 mg) PO BEDTIME 2 days calcium carbonate-vitamin D3 600 mg-5 mcg (200 unit) (Calcium 600 + D(3)) 1 tab PO DAILY fluticasone propionate 50 mcg/actuation 1 spray intranasal DAILY gabapentin 400 mg PO BID mometasone 0.1% 1 appl topical DAILY 2 weeks multivitamin 1 tab PO DAILY naltrexone 50 mg PO QWEEK 90 days peg 3350-electrolytes 236-22.74-6.74 -5.86 gram (Golytely) 240 mL PO Q10M 1 day polyethylene glycol 3350 (Miralax) 17 grams PO DAILY Tobacco use date assessed: 06/25/25 Dental Screening Dental Screen Date: 06/25/25 Did you have a dental visit in the last 12 months?: Yes Did you have a dental problem in the last 6 months where you did not have access to dental care?: No Was dental information given to patient?: Patient has dentist [facility] Medical History (Updated 06/25/25 @ 14:28 by Asiya Wyman MD) Frequency of micturition Colon cancer screening Polyarthralgia Rotator cuff injury Tendinopathy of left rotator cuff Annual physical exam Shoulder pain Annual physical exam Epigastric abdominal pain Otalgia of right ear Osteoarthritis of right shoulder Internal derangement of right shoulder Respiratory infection Cervical cancer screening Subacromial impingement of right shoulder Well woman exam FARHAD III (cervical intraepithelial neoplasia grade III) with severe dysplasia Urinary urgency Urinary frequency Breast cancer screening by mammogram Impaired glucose tolerance Hypercholesterolemia Thyroid nodule Vitamin D deficiency Migraine Left shoulder pain HPV test positive Osteopenia Carpal tunnel syndrome Fibromyalgia Surgical History H/O colonoscopy S/P rotator cuff repair H/O LEEP Family History Father CVD (cardiovascular disease) Mother Diabetes Hypertension CVA (cerebral vascular accident) Social History Household Members: Spouse Housing: House Alcohol intake: never Patient Tobacco Use Status: Never used Tobacco e-Cigarette/Vaping Use: Never Used Second Hand Smoke Exposure: No service: No Current occupational status: unemployed Sexual orientation: Straight/Heterosexual Gender identity: Female Cognitive needs: No Hearing needs: No Vision needs: Yes (glasses) Questionnaire PHQ-9 Over the last 2 weeks, how often have you been bothered by any of the following problems? 1. Little interest or pleasure in doing things: nearly every day 2. Feeling down, depressed, or hopeless: nearly every day 3. Trouble falling or staying asleep, or sleeping too much: more than half the days 4. Feeling tired or having little energy: several days 5. Poor appetite or overeating: not at all 6. Feeling bad about yourself - or that you are a failure or have let yourself or your family down: not at all 7. Trouble concentrating on things, such as reading the newspaper or watching television: not at all 8. Moving or speaking so slowly that other people could have noticed. Or the opposite - being so fidgety or restless that you have been moving around a lot more than usual: not at all 9. Thoughts that you would be better off or of hurting yourself in some way: not at all Total score: 9 Source: Developed by Drs. Gallito Day, Raquel Pang, José Miguel Schmid and colleagues, with an educational fallon from [employer]. Thrive Questionnaire Date Thrive assessed: 10/27/24 I am a: Patient What is your living situation today?: I have a steady place to live Within the past 12 months, did the food you bought not last and you didn't have the money to get more?: Never true Within the past 12 months, did you worry whether your food would run out before you got money to buy more?: Never true Do you have trouble paying for medicines?: No Do you have trouble getting transportation to medical appointments?: No Do you have trouble paying your heating and electricity bill?: No Do you have trouble taking care of your child, family member or friend?: No Do you have trouble with day-to-day activities such as bathing, preparing meals, shopping, managing finances, etc.?: No Are you currently unemployed and looking for a job?: No Are you interested in more education?: No Please select the resources that you would like help with: None Currently or been in a relationship where the following occur: No concerns reported THRIVE Score: 0 AUDIT C Alcohol Use Questionnaire (AUDIT-C) 1. How often do you have a drink containing alcohol?: Monthly or less 2. How many drinks containing alcohol do you have on a typical day when you are drinking?: 1 or 2 3. How often do you have six or more drinks on one occasion?: Never Total Score: 1 JONY-7 AMB Questionnaire JONY-7 Date JONY - 7 assessed: 11/03/24 Feeling nervous, anxious, or on edge: 0 = Not at all Not being able to stop or control worryin = Not at all Worrying too much about different things: 0 = Not at all Trouble relaxin = Not at all Being so restless that it is hard to sit still: 0 = Not at all Becoming easily annoyed or irritable: 0 = Not at all Feeling afraid as if something awful might happen: 0 = Not at all Total JONY-7 score (0-4 normal; 5-9 mild; 10-14 moderate; 15-21 severe): 0 Source: Developed by Drs. Gallito Day, Raquel Pang, José Miguel Schmid and colleagues, with an educational fallon from [employer]. Physical exam (Primary Care) Vital Signs: Last Vital Signs Temp 97.1 F 06/25/25 14:09 Pulse 75 06/25/25 14:09 BP 96/54 L 06/25/25 14:09 Pulse Ox 97 06/25/25 14:09 Oxygen Delivery Method Room Air 06/25/25 14:09 BMI result Body Mass Index 20.3 Tobacco/Smoking Status: Tobacco use Status Tobacco use date assessed 06/25/25 06/25/25 14:12 Patient Tobacco Use Status Never used Tobacco 06/25/25 14:12 e-Cigarette/Vaping Use Never Used 06/25/25 14:12 PHQ-9: PHQ-9 Score PHQ-9: Total score 9 06/25/25 16:48 Thrive Assessment: Date of Thrive Assessment Date Thrive assessed 10/27/24 06/25/25 14:12 Currently or been in a relationship where the following occur: No concerns reported Const General: alert; No acute distress Eyes Conjunctivae: conjunctivae normal Resp Auscultation: clear to auscultation bilaterally Cardio Rate: regular rate Rhythm: regular rhythm GI Inspection: Yes normal to inspection Extrem General: Yes normal to inspection and No edema Coding Level of Care Code Est Pt Level 4 (55373) Complex EM visit Add On G2211 Diagnoses Hypercholesterolemia E78.00 Impaired glucose tolerance R73.02 GERD (gastroesophageal reflux disease) K21.9 Migraine without aura and without status migrainosus, not intractable G43.009 Intractability: not intractable Migraine type: without aura Status migrainosus presence: without status migrainosus Peripheral polyneuropathy G62.9 Peripheral neuropathy type: polyneuropathy, unspecified Hypotension I95.9 Frequency of micturition R35.0 Assessment & Plan Assessment & Plan (1) Hypercholesterolemia: Code(s): E78.00 - Pure hypercholesterolemia, unspecified Category: Medical Plan: Avoid fried foods, chicken skin, eggs, butter margarine, pastries and meat. Be it pork or beef they have a lot of cholesterol LDL goal of less than 130 and triglyceride of less than 150 (2) Impaired glucose tolerance: Code(s): R73.02 - Impaired glucose tolerance (oral) Category: Medical Plan: Decrease the amount of carbohydrate intake, pasta, bread, rice and potatoes are all sugar and that is aside from all the sweet stuff, remember that fruits are good but they are Sweet also. Continue to monitor hemoglobin A1c (3) GERD (gastroesophageal reflux disease): Comment: 2022 Code(s): K21.9 - Gastro-esophageal reflux disease without esophagitis Category: Medical Plan: Avoid the foods that causes that usually spicy foods, tomato products, juices, coffee, soda and foods that your sensitive to. After eating do not lie down, allow 3-4 hours before in lie down. And keep the head of bed above 30 degrees to avoid the acid from going up. (4) Migraine: Comment: CSF analysis at [facility] in 2008: glu 78, pro 44, WBCs 3, RBCs 0. Code(s): G43.909 - Migraine, unspecified, not intractable, without status migrainosus Category: Medical Qualifiers: Intractability: not intractable Migraine type: without aura Status migrainosus presence: without status migrainosus Qualified Code(s): G43.009 - Migraine without aura, not intractable, without status migrainosus Plan: Patient is advised to eat healthy, keep well hydrated, keep active and have adequate sleep. Amitriptyline prescription sent in (5) Peripheral neuropathy: Comment: February 2025 Nerve conduction test done 03/24/2025 showing mild axonal sensory and motor peripheral neuropathy in feet Code(s): G62.9 - Polyneuropathy, unspecified Category: Medical Qualifiers: Peripheral neuropathy type: polyneuropathy, unspecified Qualified Code(s): G62.9 - Polyneuropathy, unspecified Plan: Reviewed the notes from Neurology and question of genetic predisposition. Amitriptyline prescription sent in gabapentin prescription sent in (6) Hypotension: Code(s): I95.9 - Hypotension, unspecified Category: Medical (7) Frequency of micturition: Code(s): R35.0 - Frequency of micturition Category: Medical Plan History of Present Illness The patient is a 64-year-old female presenting for management of multiple chronic conditions and new symptoms. She has a history of hypercholesterolemia, migraine, and osteopenia, with her last bone density scan in March 2023. Her mammogram was completed in March 2025. The patient has a diagnosis of peripheral neuropathy and was seen by neurology on June 23. 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 She was previously prescribed amitriptyline 25 mg at bedtime for this condition. Recent blood work from January 2025 showed a normal blood count without anemia, normal electrolytes, and good renal function. Her hemoglobin A1c has improved to 5.7 from previous values of 5.8 and 5.9. Her cholesterol was noted to be elevated, and levels of vitamin D, folic acid, and thyroid were within normal limits. The patient reports new complaints including pounding headaches and fatigue, as well as increased urinary frequency for the past few months, which has been worsening. She has been taking Excedrin Migraine daily for headaches. The patient also has a history of uterine fibroids. For health maintenance, a colonoscopy is due, but the patient reports she was never called to schedule the test after a referral was made in February and has been unable to reach the barrel brander's office. Health Maintenance A prescription for metoprolol was sent. A request for blood work has been made, which will include tests requested by neurology. Regarding her overdue colonoscopy, the medical device sales representative will contact the barrel brander's office to facilitate scheduling. The patient declined the flu shot after discussion. Social History - Functional Status: Patient reports foot pain and is requesting a handicap placard. - She does not currently use an assistive device for walking but plans to request a cane. - Nutritional Intake: Patient was advised to increase water intake to 6-8 glasses per day due to low blood pressure and headaches. - Substance Use: Reports taking Excedrin Migraine daily. Review of Systems - Constitutional: Reports feeling tired and having no energy. - Neurological: Reports pounding headaches on the side of her head. - Reports foot pain related to peripheral neuropathy. - Genitourinary: Reports increased urinary frequency, about every hour, for the past few months, which is worsening. Physical Exam - Vitals: Blood pressure is on the low side. Results - Labs (January 2025): - CBC: Normal, no anemia. - Electrolytes: Normal. - Renal function: Good. - Blood Sugar: Normal. - Hemoglobin A1c: 5.7%. - Liver numbers: Fine. - Cholesterol: Elevated at 133. - Vitamin D, folic acid, thyroid: All within normal limits. - Tests and Diagnostics: - Nerve Conduction Test (date not specified): Revealed mild axonal sensory and motor peripheral neuropathy of the feet. - Bone Density Scan (March 2023): Showed osteopenia. - Mammogram (March 2025): Completed, results not detailed. Plan Patient was informed and verbally consented to the use of an ambient scribe for clinic note documentation during this visit. 1. Peripheral Neuropathy Treatment remains supportive. Neurology notes regarding a possible genetic predisposition were reviewed. Prescriptions for amitriptyline and gabapentin have been sent. Will assist with handicap placard application once the patient obtains a cane. 2. Headache/Migraine Advised that headaches may be secondary to dehydration from low fluid intake and associated with low blood pressure. Instructed the patient to increase water intake to 6-8 glasses per day. Counseled against daily use of Excedrin Migraine due to risk of rebound headaches. 3. Hypercholesterolemia The plan is to continue monitoring cholesterol levels with a goal for LDL less than 130 and triglycerides less than 150. Cholesterol will be rechecked with the next set of labs. 4. Prediabetes Continue to monitor hemoglobin A1c. Blood sugar will be rechecked with the ordered blood work. 5. Urinary Frequency A urinalysis has been ordered to evaluate the cause of the patient's urinary frequency. The patient will have the urine test done at the same time as her blood work. Discussion Notes I reviewed the patient's recent lab work from January, noting that her hemoglobin A1c is improving at 5.7, though we will continue to monitor it. I also noted her cholesterol is slightly high at 133, and her blood pressure is on the low side. We discussed her headaches, which I believe may be related to dehydration and low blood pressure. I advised her to increase her water intake to 6-8 glasses daily and cautioned her against the regular use of Excedrin Migraine, explaining the risk of rebound headaches. To investigate her complaint of urinary frequency, I have ordered a urinalysis. I also ordered blood work, which will include tests requested by her neurologist, and instructed her to have both done at the same time. I informed the patient that my medical device sales representative will contact the barrel brander's office to follow up on scheduling her overdue colonoscopy. Regarding her request for a handicap placard, I explained that we can proceed once she is using a cane for assistance. We also discussed vaccinations, and she chose not to receive the flu shot; I advised her to be cautious during the winter months. Patient Instructions - Drink 6 to 8 glasses of water every day. - This should help with your headaches and feeling tired. - Do not take Excedrin Migraine every day, as this can cause your headaches to become worse. - Please go to the lab to get your blood work and a urine test done. - Our office will call the stomach specialist (barrel brander) to help you get an appointment for your colonoscopy. - Once you have a cane to help you walk, let me know, and I can fill out the paperwork for a handicap placard. - New prescriptions for metoprolol, amitriptyline, and gabapentin have been sent to your pharmacy. - Be careful to avoid getting sick this winter, since you are not getting a flu shot. Orders: Orders Complete Blood Count Auto Diff Today R73.02 - Impaired glucose tolerance (oral) Free T4 (Free Thyroxine) Today R73.02 - Impaired glucose tolerance (oral) Thyroid Stimulating Hormone Today R73.02 - Impaired glucose tolerance (oral) Lipid Panel Today E78.00 - Pure hypercholesterolemia, unspecified, R73.02 - Impaired glucose tolerance (oral) UA CC w/rflx Micro + Cult Today R30.0 - Dysuria, R73.02 - Impaired glucose tolerance (oral) Vitamin B12 and Folate Today R73.02 - Impaired glucose tolerance (oral) Ferritin Today R73.02 - Impaired glucose tolerance (oral) Comprehensive Met. Panel Today R73.02 - Impaired glucose tolerance (oral) Hemoglobin A1c Today R73.02 - Impaired glucose tolerance (oral) Magnesium Today R73.02 - Impaired glucose tolerance (oral) Medications: Discontinued naltrexone Discontinued Reason: Patient Refused 50 mg PO QWEEK 90 days 13 tabs 1RF M79.7 - Fibromyalgia
[2025-06-25 14:09] VITALS: BP 96/54; PULSE 75; TEMP 36.2; O2SAT 97; BMI 20.3
== END 2025-06-25 14:35 | disposition home or self-care (01) ==
LOC: HO.HMCH 14:05
PROVIDERS: PCP Internal Medicine; Visit Provider Internal Medicine
DX: E78.00 Pure hypercholesterolemia, unspecified (principal); R73.02 Impaired glucose tolerance (oral); K21.9 Gastro-esophageal reflux disease without esophagitis; G43.009 Migraine without aura, not intractable, without status migrainosus; G62.9 Polyneuropathy, unspecified; I95.9 Hypotension, unspecified; R35.0 Frequency of micturition

== ENCOUNTER → 2025-06-25 14:04 | Outpatient (BNVA) | payer OTHER, SELFPAY | PROVIDERS: PCP Internal Medicine; Visit Provider Internal Medicine | DX: K21.9 Gastro-esophageal reflux disease without esophagitis (principal); E78.00 Pure hypercholesterolemia, unspecified; R73.02 Impaired glucose tolerance (oral); G43.009 Migraine without aura, not intractable, without status migrainosus; G62.9 Polyneuropathy, unspecified; I95.9 Hypotension, unspecified; R35.0 Frequency of micturition; R73.03 Prediabetes | CPT/HCPCS: 96127; 99212 ==

== ENCOUNTER 2025-07-16 08:56 | Outpatient (REF) | payer OTHER, SELFPAY ==
[2025-07-16 09:30] LABS: MANUAL DIFF FLAG NO
[2025-07-16 10:30] LABS: Hematocrit 38.7 % (37.0-47.0); Hemoglobin 12.8 g/dl (12.0-16.0); Imm Gran Abs Auto 0.01 X10*3/uL (0.00-0.03); Imm Gran Pct Auto 0.2 % (0.0-0.4); Lymphocytes Absolute Auto 2.5 X10*3/uL (1.2-4.9); Mean Corpuscular HGB Conc 33.1 g/dl (31.0-35.0); Mean Corpuscular Hemoglobin 30.5 pg (27.0-33.0); Mean Corpuscular Volume 92.4 fL (80.0-98.0); NRBC Abs Auto 0.000 X10*3/uL (0.0-0.012); NRBC Pct Auto 0.0 /100WBC (0.0-0.2); Platelet Count 282 X10*3/uL (160-400); Red Blood Count 4.19 X10*6/uL (4.20-5.50); White Blood Count 5.7 X10*3/uL (4.8-10.8)
[2025-07-16 10:47] LABS: Appearance Urine Turbid; Glucose Urine UA Negative (Negative); PH 6.5 (5.0-9.0); Specific Gravity - Urine 1.020 (1.005-1.025); UMIC TRIGGER UACC YES
[2025-07-16 10:50] LABS: UACC Culture Trigger YES
[2025-07-16 11:01] LABS: Hemoglobin A1C 148.9375 umol/L
[2025-07-16 11:25] LABS: Alanine Aminotransferase 19 U/L (0-31); Albumin Level 4.2 g/dL (3.5-5.0); Alkaline Phosphatase 34 U/L (39-117); Anion Gap 11 (12-20); Aspartate Amino Transferase 28 U/L (5-31); Blood Urea Nitrogen 17 mg/dL (9-16); Calcium 9.4 mg/dL (8.4-10.2); Carbon Dioxide 28 mmol/L (22-29); Chloride 106 mmol/L (96-108); Cholesterol 219 mg/dL (<200); Estimated Glomerular Filt Rate > 60; HDL Cholesterol 61 mg/dL (>40); Magnesium 2.1 mg/dL (1.6-2.6); Potassium 4.0 mmol/L (3.3-5.1); Sodium 141 mmol/L (135-145); Total Protein 7.5 g/dL (6.5-8.0); Triglycerides 84 mg/dL (<150)
[2025-07-16 11:43] LABS: Ferritin 117 ng/mL (10-250); Free T4 (Free Thyroxine) 1.11 ng/dL (0.71-1.85); Thyroid Stimulating Hormone 2.16 uIU/mL (0.32-4.0)
[2025-07-16 12:16] LABS: Folate > 20.0 ng/mL (> or = 4.0); Vitamin B12 798 pg/mL (200-900)
[2025-07-17 06:54] LABS: Lyme Abs Screen <0.90 index
== END 2025-07-16 08:57 | disposition home or self-care (01) ==
LOC: HO.LAB 08:56
PROVIDERS: Absent Provider Internal Medicine; PCP Internal Medicine; Visit Provider Psychiatry & Neurology Neurology
DX: R73.02 Impaired glucose tolerance (oral) (principal); G62.9 Polyneuropathy, unspecified; E78.00 Pure hypercholesterolemia, unspecified
CPT/HCPCS: 36415; 80053; 80061; 81001; 82607; 82728; 82746; 82784; 83036; 83735; 84439; 84443; 85025; 86334; 86617; 86618; 87086